=== PATIENT | male | born 1960 | race African-American/Black ===

== ENCOUNTER 2024-09-14 14:01 | Inpatient (IN) | payer OTHER ==
--- OUTSIDE RECORDS SUMMARY | 2024-09-14 14:16 | XMS REPORT | Continuity of Care Document ---
Author Name Unknown Address [address] [facility] [place] [address] [facility] Address [address] [facility] [address] [place] [address] Care Team Providers Care Sports Equipment Supervisor Name Role Phone Liang Jerez Primary Care Physician Medications Ordered Medication Name Filled Medication Name Start Date Stop Date Current Medication? Ordering Clinician Indication Dosage Frequency Signature (SIG) Comments Components Source Vitamin D3 25 mcg (1,000 unit) tablet 07-27 00:00: 00 Yes 1(1,000 unit) Fredi Martel clobetasol 0.05 % topical cream 07-24 00:00: 00 Yes 1% Fredi Martel metformin 1,000 mg tablet -24 00:00: 00 Yes 1mg Fredi Martel glipizide 10 mg tablet -24 00:00: 00 Yes 1mg Fredi Martel pravastatin 10 mg tablet 3-24 00:00: 00 Yes 1mg Fredi Martel Jardiance 10 mg tablet 3-24 00:00: 00 Yes 1mg Fredi Martel metformin 1,000 mg tablet 1-08 00:00: 00 Yes 1mg Fredi Martel clobetasol 0.05 % topical cream 2023-05 2-20 00:00: 00 Yes 1% Fredi Martel losartan 50 mg tablet 2023-05 2-20 00:00: 00 Yes 1mg Fredi Martel metformin 1,000 mg tablet 2023-05 2-20 00:00: 00 Yes 1mg Fredi Martel glipizide 10 mg tablet 2023-05 2-20 00:00: 00 Yes 1mg Fredi Martel pravastatin 10 mg tablet 2023-05 2-20 00:00: 00 Yes 1mg Fredi Martel Jardiance 10 mg tablet 2023-05 2-20 00:00: 00 Yes 1mg Fredi Martel pravastatin 10 mg tablet 2023-05 0-14 00:00: 00 Yes 1mg Fredi Martel Jardiance 10 mg tablet 2023-05 0-14 00:00: 00 Yes 1mg Fredi Martel montelukast 10 mg tablet 9-17 00:00: 00 Yes 1mg Fredi Martel losartan 50 mg tablet 8- 00:00: 00 Yes 1mg Fredi Martel methotrexat e sodium 2.5 mg tablet 8- 00:00: 00 Yes 8mg Fredi Martel clobetasol 0.05 % topical cream - 00:00: 00 Yes 1% Fredi Martel montelukast 10 mg tablet 4- 00:00: 00 Yes 1mg Fredi Martel losartan 100 mg tablet - 00:00: 00 Yes 1mg Fredi Martel metformin 1,000 mg tablet - 00:00: 00 Yes 1mg Fredi Martel glipizide 10 mg tablet - 00:00: 00 Yes 1mg Fredi Martel methotrexat e sodium 2.5 mg tablet - 00:00: 00 Yes 8mg Fredi Martel Flonase Allergy Relief 50 mcg/actuati on nasal spray,suspe nsion - 00:00: 00 Yes 1mcg/ac tuation Fredi Martel Lyrica 150 mg capsule - 00:00: 00 Yes 1mg Fredi Martel PREGABALIN 150 MG 4- 00:00: 00 Yes Fredi Martel FLUTICASONE PROPIONATE 50 MCG/ACT SUSP - 00:00: 00 Yes Fredi Martel CLOBETASOL PROPIONATE 0.05 % CREA 4-03 00:00: 00 Yes Fredi Martel METHOTREXAT E SODIUM 2.5 MG TABS 4- 00:00: 00 Yes Fredi Martel losartan 50 mg tablet - 00:00: 00 Yes 1mg Fredi F Delonte TAKE 1 TABLET BY MOUTH DAILY - 00:00: 00 09-12 00:00 :00 No 50 Fredi F Delonte TAKE 1 TABLET BY MOUTH TWICE DAILY. - 00:00: 00 09-12 00:00 :00 No 1000 Fredi F Delonte TAKE 1 TABLET BY MOUTH TWICE A DAY 07-01 00:00: 00 09-12 00:00 :00 No 10 Fredi F Delonte TAKE 1 TABLET BY MOUTH DAILY 07-01 00:00: 00 09-12 00:00 :00 No 10 Fredi F Delonte TAKE 1 CAPSULE AT BEDTIME. 2022-05 00:00: 00 09-12 00:00 :00 No 300 Fredi F Delonte TAKE 1 TABLET TWICE DAILY. 2022-05 00:00: 00 09-12 00:00 :00 No 1000 Fredi F Delonte APPLY SPARINGLY TO AFFECTED AREA(S) TWICE DAILY 2022-05 00:00: 00 09-12 00:00 :00 No 5 Fredi F Delonte TAKE 1 TABLET BY MOUTH TWICE A DAY 2022-05 00:00: 00 09-12 00:00 :00 No 10 Freid F Delonte TAKE 8 TABLETS BY MOUTH WEEKLY 2022-05 00:00: 00 09-12 00:00 :00 No 25 Fredi F Delnote TAKE 1 TABLET DAILY. 2022-05 00:00: 00 09-12 00:00 :00 No 10 Fredi F Delonte TAKE 1 TABLET DAILY. 2022-05 00:00: 00 09-12 00:00 :00 No 50 Fredi F Delonte TAKE 1 TABLET DAILY. 12-22 00:00: 00 09-12 00:00 :00 No 50 Fredi F Delonte TAKE 1 CAPSULE AT BEDTIME. 12-22 00:00: 00 09-12 00:00 :00 No 300 Fredi F Delonte TAKE 1 TABLET BY MOUTH TWICE A DAY 12-22 00:00: 00 09-12 00:00 :00 No 10 Fredi F Delonte TAKE 8 TABLETS PER WEEK. 12-22 00:00: 00 09-12 00:00 :00 No 25 Fredi F Delonte TAKE 1 TABLET DAILY. 12-22 00:00: 00 09-12 00:00 :00 No 10 Fredi F Delonte APPLY SPARINGLY TO AFFECTED AREA(S) TWICE DAILY 12-22 00:00: 00 09-12 00:00 :00 No 5 Fredi F Delonte TAKE 1 TABLET TWICE DAILY. 12-22 00:00: 00 09-12 00:00 :00 No 1000 Fredi F Delonte APPLY SPARINGLY TO AFFECTED AREA(S) TWICE DAILY 09-19 00:00: 00 09-12 00:00 :00 No 5 Fredi F Delonte TAKE 1 CAPSULE AT BEDTIME. 09-19 00:00: 00 09-12 00:00 :00 No 300 Fredi F Delonte TAKE 1 TABLET DAILY. 09-19 00:00: 00 09-12 00:00 :00 No 10 Fredi F Delonte TAKE 1 TABLET BY MOUTH TWICE A DAY 09-15 00:00: 00 09-12 00:00 :00 No 10 Fredi F Delonte TAKE 1 TABLET TWICE DAILY. 09-15 00:00: 00 09-12 00:00 :00 No 1000 Fredi F Delonte TAKE 1 CAPSULE AT BEDTIME. 09-15 00:00: 00 09-12 00:00 :00 No 300 Fredi F Delonte TAKE 8 TABLETS PER WEEK. 09-15 00:00: 00 09-12 00:00 :00 No 25 Fredi F Delonte TAKE 1 TABLET DAILY. 09-15 00:00: 00 09-12 00:00 :00 No 50 Fredi F Delonte USE 1 SPRAY IN EACH NOSTRIL TWICE DAILY. 2-07 00:00: 00 09-12 00:00 :00 No 50 Fredi F Delonte TAKE 1 TABLET BY MOUTH TWICE A DAY 2 00:00: 00 09-12 00:00 :00 No 10 Fredisherrie Martel TAKE 1 TABLET DAILY. 2 00:00: 00 09-12 00:00 :00 No 50 Fredisherrie Martel TAKE 8 TABLETS PER WEEK. 2 00:00: 00 09-12 00:00 :00 No 25 Fredi Tiffany Martel APPLY SPARINGLY TO AFFECTED AREA(S) TWICE DAILY 2 00:00: 00 09-12 00:00 :00 No 5 Fredisherrie Martel TAKE 1 CAPSULE AT BEDTIME. 06-09 00:00: 00 09-12 00:00 :00 No 300 Fredisherrie Martel TAKE 1 TABLET DAILY. 06-09 00:00: 00 09-12 00:00 :00 No 10 Fredi Martel TAKE 1 TABLET TWICE DAILY. 06-09 00:00: 00 09-12 00:00 :00 No 1000 Fredi Martel TAKE 1 TABLET DAILY. 05-20 00:00: 00 09-12 00:00 :00 No Fredi Tiffany Martel APPLY SPARINGLY TO AFFECTED AREA(S) TWICE DAILY 2021-0515 00:00: 00 09-12 00:00 :00 No unit Fredi Tiffany Martel Dose Unknown 2021-05 00:00: 00 Yes Fredi Martel TAKE 1 CAPSULE AT BEDTIME. 2021-05 00:00: 00 09-12 00:00 :00 No 300 Fredi Martel Dose Unknown 11-06 00:00: 00 Yes Fredi Tiffany Delonte tadalafil 5 mg tablet - 00:00: 00 No 1mg montelukast 10 mg tablet - 00:00: 00 Yes 1mg Fredi Tiffany Martel metformin 1,000 mg tablet 11-05 00:00: 00 Yes 1mg Fredi Tiffany Delonte glipizide 10 mg tablet - 00:00: 00 Yes 1mg Fredi Tiffany Delonte gabapentin 300 mg capsule 2022-0 7-06 00:00: 00 Yes 1mg Fredi Martel Dose Unknown 2021-0 7-06 00:00: 00 Yes Fredi Martel clobetasol 0.05 % topical cream 2021-0 7-06 00:00: 00 No 1% montelukast 10 mg tablet 2021-0 7-06 00:00: 00 No 1mg metformin 1,000 mg tablet 2021-0 7-06 00:00: 00 No 1mg glipizide 10 mg tablet 2021-0 7-06 00:00: 00 No 1mg gabapentin 300 mg capsule 2021-0 -06 00:00: 00 No 1mg clobetasol 0.05 % topical cream 2021-0 5-23 00:00: 00 Yes 1% Fredi Martel clobetasol 0.05 % topical cream 2021-0 5-23 00:00: 00 No 1% metformin 1,000 mg tablet 2021-0 4-18 00:00: 00 Yes 1mg Fredi Martel Dose Unknown 2021-0 4-18 00:00: 00 Yes Fredi Martel metformin 1,000 mg tablet 2021-0 4-18 00:00: 00 No 1mg glipizide 10 mg tablet 2-0 4-18 00:00: 00 No 1mg Dose Unknown 2-0 4-15 00:00: 00 Yes Fredi Martel Dose Unknown 2-0 4-15 00:00: 00 Yes Fredi Martel Dose Unknown 2-0 4-15 00:00: 00 No Dose Unknown 2-0 4-15 00:00: 00 No Dose Unknown 2-0 4-13 00:00: 00 Yes Fredi Martel Dose Unknown 2-0 4-13 00:00: 00 Yes Fredi Martel Dose Unknown 2-0 4-13 00:00: 00 No Dose Unknown 2-0 4-13 00:00: 00 No montelukast 10 mg tablet 2-0 4-12 00:00: 00 Yes 1mg Fredi Martel Dose Unknown 2022-0 4-12 00:00: 00 Yes Fredi Martel Dose Unknown 2-0 4-12 00:00: 00 Yes Fredi Martel Dose Unknown 2-0 4-12 00:00: 00 Yes Fredi Martel montelukast 10 mg tablet 08-12 00:00: 00 No 1mg glipizide 10 mg tablet 08-12 00:00: 00 No 1mg metformin 1,000 mg tablet 08-12 00:00: 00 No 1mg Flonase Allergy Relief 50 mcg/actuati on nasal spray,suspe nsion 08-12 00:00: 00 No 1mcg/ac tuation clobetasol 0.05 % topical cream 07-29 00:00: 00 No 1% prednisone 20 mg tablet 07-29 00:00: 00 No 1mg methotrexat e sodium 2.5 mg tablet 07-29 00:00: 00 No 8mg Dose Unknown 07-29 00:00: 00 No Dose Unknown 07-29 00:00: 00 Yes Fredi Tiffany Martel Dose Unknown 07-29 00:00: 00 Yes Fredi Martel Dose Unknown 07-29 00:00: 00 Yes Fredi Tiffany Delonte betamethaso ne valerate 0.1 % topical cream 07-01 00:00: 00 No 1% Dose Unknown 07-01 00:00: 00 Yes Fredi Tiffany Delonte ketoconazol e 2 % topical cream 2020-05 00:00: 00 No 1% folic acid 1 mg tablet 2020-05 00:00: 00 No 1mg metformin 1,000 mg tablet 2020-05 00:00: 00 No 1mg glipizide 10 mg tablet 2020-05 00:00: 00 No 1mg ciprofloxac in 500 mg tablet 2020-05 00:00: 00 No 1mg methotrexat e sodium 2.5 mg tablet 2020-05 00:00: 00 No 6mg gabapentin 100 mg capsule 2020-05 00:00: 00 No 1mg gabapentin 300 mg capsule 2020-05 00:00: 00 No 1mg Dose Unknown 2020-05 00:00: 00 Yes Fredi Tiffany Delonte glipizide 10 mg tablet 2020-05 00:00: 00 Yes 1mg Fredi F Delonte Dose Unknown 2020-05 00:00: 00 Yes Fredi Martel Dose Unknown 2020-05 00:00: 00 Yes Fredi Martel Dose Unknown 2020-05 00:00: 00 Yes Fredi Martel Dose Unknown 2020-05 00:00: 00 Yes Fredi Martel Dose Unknown 2020-05 00:00: 00 Yes Fredi Martel Dose Unknown 09-10 00:00: 00 No Dose Unknown 09-10 00:00: 00 Yes Fredi Martel betamethaso ne valerate 0.1 % topical cream 08-20 00:00: 00 No 1% Dose Unknown 08-20 00:00: 00 Yes Fredi Martel betamethaso ne valerate 0.1 % topical cream 07-30 00:00: 00 No 1% betamethaso ne valerate 0.1 % topical cream 07-30 00:00: 00 Yes 1% Fredi Martel betamethaso ne valerate 0.1 % topical cream 05-14 00:00: 00 No 1% folic acid 1 mg tablet - 00:00: 00 No 1mg glipizide 10 mg tablet - 00:00: 00 No 1mg metformin 1,000 mg tablet - 00:00: 00 No 1mg methotrexat e sodium 2.5 mg tablet - 00:00: 00 No 6mg gabapentin 100 mg capsule - 00:00: 00 No 1mg betamethaso ne valerate 0.1 % topical cream 05-14 00:00: 00 Yes 1% Fredi Martel folic acid 1 mg tablet - 00:00: 00 Yes 1mg Fredi Martel glipizide 10 mg tablet - 00:00: 00 Yes 1mg Fredi Martel metformin 1,000 mg tablet - 00:00: 00 Yes 1mg Fredi Martel methotrexat e sodium 2.5 mg tablet 05-14 00:00: 00 Yes 6mg Fredi Martel gabapentin 100 mg capsule 05-14 00:00: 00 Yes 1mg Fredi Martel metformin 1,000 mg tablet 2019-05 00:00: 00 No 1mg glipizide 10 mg tablet 2019-05 00:00: 00 No 1mg gabapentin 100 mg capsule 2019-05 00:00: 00 No 1mg metformin 1,000 mg tablet 2019-05 00:00: 00 Yes 1mg Fredi Martel glipizide 10 mg tablet 2019-05 00:00: 00 Yes 1mg Fredi Martel gabapentin 100 mg capsule 2019-05 00:00: 00 Yes 1mg Fredi Martel betamethaso ne valerate 0.1 % topical cream 2019-05 00:00: 00 No 1% folic acid 1 mg tablet 2019-05 00:00: 00 No 1mg prednisone 20 mg tablet 2019-05 00:00: 00 No 1mg ciprofloxac in 500 mg tablet 2019-05 00:00: 00 No 1mg amoxicillin 875 mg-potassiu m clavulanate 125 mg tablet 2019-05 00:00: 00 No 1mg betamethaso ne valerate 0.1 % topical cream 2019-05 00:00: 00 Yes 1% Fredi Martel folic acid 1 mg tablet 2019-05 00:00: 00 Yes 1mg Fredi Martel prednisone 20 mg tablet 2019-05 00:00: 00 Yes 1mg Fredi Martel ciprofloxac in 500 mg tablet 2019-05 00:00: 00 Yes 1mg Fredi Martel amoxicillin 875 mg-potassiu m clavulanate 125 mg tablet 2019-05 00:00: 00 Yes 1mg Fredi Martel betamethaso ne valerate 0.1 % topical cream 2019-05 0 00:00: 00 No 1% folic acid 1 mg tablet 2019-05 0 00:00: 00 No 1mg ciprofloxac in 500 mg tablet 2019-05 0 00:00: 00 No 1mg sulfamethox azole 800 mg-trimetho prim 160 mg tablet 2019-05 00:00: 00 No 1mg methotrexat e sodium 2.5 mg tablet 2019-05 00:00: 00 No 6mg prednisone 20 mg tablet 2019-05 00:00: 00 No mg betamethaso ne valerate 0.1 % topical cream 2019-05 00:00: 00 Yes 1% Fredi Martel folic acid 1 mg tablet 2019-05 00:00: 00 Yes 1mg Fredi Martel ciprofloxac in 500 mg tablet 2019-05 00:00: 00 Yes 1mg Fredi Martel sulfamethox azole 800 mg-trimetho prim 160 mg tablet 2019-05 00:00: 00 Yes 1mg Fredi Martel methotrexat e sodium 2.5 mg tablet 2019-05 00:00: 00 Yes 6mg Fredi Martel prednisone 20 mg tablet 2019-05 00:00: 00 Yes mg Fredi Martel prednisone 20 mg tablet 2019-05 00:00: 00 No 1mg sulfamethox azole 800 mg-trimetho prim 160 mg tablet 2019-05 00:00: 00 No 1mg prednisone 20 mg tablet 2019-05 00:00: 00 Yes 1mg Fredi Martel sulfamethox azole 800 mg-trimetho prim 160 mg tablet 2019-05 00:00: 00 Yes 1mg Fredi Martel betamethaso ne valerate 0.1 % topical cream 2019-05 00:00: 00 No 1% clotrimazol e 1 % topical cream 2019-05 00:00: 00 No 1% metformin 1,000 mg tablet 2019-05 00:00: 00 No 1mg glipizide 10 mg tablet 2019-05 00:00: 00 No 1mg gabapentin 100 mg capsule 2019-05 00:00: 00 No 1mg betamethaso ne valerate 0.1 % topical cream 2019-05 00:00: 00 Yes 1% Fredi Martel clotrimazol e 1 % topical cream 2019-05 00:00: 00 Yes 1% Fredi Martel metformin 1,000 mg tablet 2019-05 00:00: 00 Yes 1mg Fredi Martel glipizide 10 mg tablet 2019-05 00:00: 00 Yes 1mg Fredi Martel gabapentin 100 mg capsule 2019-05 00:00: 00 Yes 1mg Fredi Martel glipizide 10 mg tablet 12-11 00:00: 00 No 1mg metformin 1,000 mg tablet 12-11 00:00: 00 No 1mg gabapentin 100 mg capsule 12-11 00:00: 00 No 1mg glipizide 10 mg tablet 12-11 00:00: 00 Yes 1mg Fredi Martel metformin 1,000 mg tablet 12-11 00:00: 00 Yes 1mg Fredi Martel gabapentin 100 mg capsule 12-11 00:00: 00 Yes 1mg Fredi Martel triamcinolo ne acetonide 0.1 % topical cream 11-28 00:00: 00 No 1% nystatin 100,000 unit/gram topical cream 11-28 00:00: 00 No 1unit/g pam glipizide ER 2.5 mg tablet, extended release 24 hr 11-28 00:00: 00 No 1mg metformin 500 mg tablet 11-28 00:00: 00 No 1mg ciprofloxac in 500 mg tablet 11-28 00:00: 00 No 1mg glipizide 10 mg tablet 11-28 00:00: 00 No 1mg metformin 1,000 mg tablet 11-28 00:00: 00 No 1mg triamcinolo ne acetonide 0.1 % topical cream 11-28 00:00: 00 Yes 1% Fredi Martel nystatin 100,000 unit/gram topical cream 11-28 00:00: 00 Yes 1unit/g pam Martel glipizide ER 2.5 mg tablet, extended release 24 hr 11-28 00:00: 00 Yes 1mg Fredi Martel metformin 500 mg tablet 11-28 00:00: 00 Yes 1mg Fredi Martel ciprofloxac in 500 mg tablet 11-28 00:00: 00 Yes 1mg Fredi Martel glipizide 10 mg tablet 11-28 00:00: 00 Yes 1mg Fredi Martel metformin 1,000 mg tablet 11-28 00:00: 00 Yes 1mg Fredi Martel Immunizations Ordered Immunization Name Filled Immunization Name Date Status Comments Source Moderna COVID-19 Vaccine 2021-09-22 00:00:00 Completed Moderna COVID-19 Vaccine Moderna COVID-19 Vaccine 2021-09-22 00:00:00 Completed Fredi Martel Moderna COVID-19 Vaccine Moderna COVID-19 Vaccine 2021-09-22 00:00:00 Completed Fredi Martel Vital Signs Vital Name Observation Time Observation Value Comments S barbarasera BP Systolic 2024-07-24 09:50:00 150 mm[Hg] Step hen Tiffany Martel BP Diastolic 2024-07-24 09:50:00 88 mm[Hg] Juan phen Tiffany Martel Weight Measured 2024-07-24 09:50:00 177.60 pounds Fredi Martel Height Measured 2024-07-24 09:50:00 67.00 inches Fredi Martel Body Temperature 2024-07-24 09:50:00 97.70 degrees Fredi Martel Heart Rate 2024-07-24 09:50:00 58.00 /min Regla en Tiffany Martel Respiratory Rate 2024-07-24 09:50:00 18.00 /min Fredi Martel BP Systolic 2024-06-28 09:33:00 133 mm[Hg] Step hen Tifafny Martel BP Diastolic 2024-06-28 09:33:00 86 mm[Hg] Ujan phen Tiffany Martel Weight Measured 2024-06-28 09:33:00 174.20 pounds Fredi Martel Height Measured 2024-06-28 09:33:00 67.00 inches Fredi Martel Body Temperature 2024-06-28 09:33:00 98.40 degrees Fredi Martel Heart Rate 2024-06-28 09:33:00 71.00 /min Regla en F Delonte Respiratory Rate 2024-06-28 09:33:00 Fredi Tiffany Martel BP Systolic 2024-05-10 10:20:00 153 mm[Hg] Step hen F Delonte BP Diastolic 2024-05-10 10:20:00 89 mm[Hg] Juan phen F Delonte Weight Measured 2024-05-10 10:20:00 175.80 pounds Fredi F Delonte Height Measured 2024-05-10 10:20:00 67.00 inches Fredi F Delonte Body Temperature 2024-05-10 10:20:00 98.10 degrees Fredi F Delonte Heart Rate 2024-05-10 10:20:00 72.00 /min Regla en F Delonte Respiratory Rate 2024-05-10 10:20:00 18.00 /min Fredi F Delonte BP Systolic 2024-04-21 11:40:00 159 mm[Hg] Step hen F Delonte BP Diastolic 2024-04-21 11:40:00 100 mm[Hg] Juan phen F Delonte Weight Measured 2024-04-21 11:40:00 176.00 pounds Fredi F Delonte Height Measured 2024-04-21 11:40:00 67.00 inches Fredi F Delonte Body Temperature 2024-04-21 11:40:00 98.40 degrees Fredi F Delonte Heart Rate 2024-04-21 11:40:00 84.00 /min Regla en F Delonte Respiratory Rate 2024-04-21 11:40:00 Fredi F Delonte BP Systolic 2024-02-14 17:00:00 152 mm[Hg] Step hen F Delonte BP Diastolic 2024-02-14 17:00:00 88 mm[Hg] Juan phen F Delonte Weight Measured 2024-02-14 17:00:00 170.00 pounds Fredi F Delonte Height Measured 2024-02-14 17:00:00 67.00 inches Fredi F Delonte Body Temperature 2024-02-14 17:00:00 97.90 degrees Fredi F Delonte Heart Rate 2024-02-14 17:00:00 68.00 /min Regla en F Delonte Respiratory Rate 2024-02-14 17:00:00 18.00 /min Fredi F Delonte BP Systolic 2024-02-02 10:34:00 127 mm[Hg] Step hen F Delonte BP Diastolic 2024-02-02 10:34:00 82 mm[Hg] Juan phen F Delonte Weight Measured 2024-02-02 10:34:00 171.20 pounds Fredi F Delonte Height Measured 2024-02-02 10:34:00 67.00 inches Fredi F Delonte Body Temperature 2024-02-02 10:34:00 98.00 degrees Fredi F Delonte Heart Rate 2024-02-02 10:34:00 84.00 /min Regla en F Delonte Respiratory Rate 2024-02-02 10:34:00 18.00 /min Fredi F Delonte BP Systolic 2023-12-02 10:30:00 105 mm[Hg] Step hen F Delonte BP Diastolic 2023-12-02 10:30:00 73 mm[Hg] Juan phen F Delonte Weight Measured 2023-12-02 10:30:00 166.80 pounds Fredi F Delonte Height Measured 2023-12-02 10:30:00 67.00 inches Fredi F Delonte Body Temperature 2023-12-02 10:30:00 97.40 degrees Fredi F Delonte Heart Rate 2023-12-02 10:30:00 92.00 /min Regla en F Delonte Respiratory Rate 2023-12-02 10:30:00 17.00 /min Fredi F Delonte BP Systolic 2023-08-19 16:23:00 144 mm[Hg] Step hen F Delonte BP Diastolic 2023-08-19 16:23:00 91 mm[Hg] Juan phen F Delonte Weight Measured 2023-08-19 16:23:00 179.40 pounds Fredi F Delonte Height Measured 2023-08-19 16:23:00 67.00 inches Fredi F Delonte Body Temperature 2023-08-19 16:23:00 98.30 degrees Fredi F Delonte Heart Rate 2023-08-19 16:23:00 72.00 /min Regla en F Delonte Respiratory Rate 2023-08-19 16:23:00 17.00 /min Fredi F Delonte BP Systolic 2023-08-04 10:12:00 177 mm[Hg] Step hen F Delonte BP Diastolic 2023-08-04 10:12:00 94 mm[Hg] Juan phen F Delonte Weight Measured 2023-08-04 10:12:00 186.80 pounds Fredi F Delonte Height Measured 2023-08-04 10:12:00 67.00 inches Fredi F Delonte Body Temperature 2023-08-04 10:12:00 98.20 degrees Fredi F Delonte Heart Rate 2023-08-04 10:12:00 59.00 /min Regla en F Delonte Respiratory Rate 2023-08-04 10:12:00 16.00 /min Fredi F Delonte BP Systolic 2023-03-24 09:54:00 166 mm[Hg] Step hen F Delonte BP Diastolic 2023-03-24 09:54:00 94 mm[Hg] Juan phen F Delonte Weight Measured 2023-03-24 09:54:00 197.20 pounds Fredi F Delonte Height Measured 2023-03-24 09:54:00 67.00 inches Fredi F Delonte Body Temperature 2023-03-24 09:54:00 98.20 degrees Fredi F Delonte Heart Rate 2023-03-24 09:54:00 57.00 /min Regla en F Delonte Respiratory Rate 2023-03-24 09:54:00 19.00 /min Fredi F Delonte BP Systolic 2022-12-22 10:07:00 176 mm[Hg] Step hen F Delonte BP Diastolic 2022-12-22 10:07:00 96 mm[Hg] Juan phen F Delonte Weight Measured 2022-12-22 10:07:00 192.60 pounds Fredi F Delonte Height Measured 2022-12-22 10:07:00 67.00 inches Fredi F Delonte Body Temperature 2022-12-22 10:07:00 98.10 degrees Fredi F Delonte Heart Rate 2022-12-22 10:07:00 60.00 /min Regla en F Delonte Respiratory Rate 2022-12-22 10:07:00 17.00 /min Fredi F Delonte BP Systolic 2022-09-19 09:47:00 144 mm[Hg] Step hen F Delonte BP Diastolic 2022-09-19 09:47:00 89 mm[Hg] Juan phen F Delonte Weight Measured 2022-09-19 09:47:00 197.40 pounds Fredi F Delonte Height Measured 2022-09-19 09:47:00 67.00 inches Fredi F Delonte Body Temperature 2022-09-19 09:47:00 98.30 degrees Fredi F Delonte Heart Rate 2022-09-19 09:47:00 64.00 /min Regla en F Delonte Respiratory Rate 2022-09-19 09:47:00 Fredi F Delonte BP Systolic 2022-09-15 09:20:00 159 mm[Hg] Step hen F Delonte BP Diastolic 2022-09-15 09:20:00 95 mm[Hg] Juan phen F Delonte Weight Measured 2022-09-15 09:20:00 195.80 pounds Fredi F Delonte Height Measured 2022-09-15 09:20:00 67.00 inches Fredi F Delonte Body Temperature 2022-09-15 09:20:00 98.10 degrees Fredi F Delonte Heart Rate 2022-09-15 09:20:00 62.00 /min Regla en F Delonte Respiratory Rate 2022-09-15 09:20:00 Fredi F Delonte BP Systolic 2022-06-09 09:43:00 160 mm[Hg] Step hen F Delonte BP Diastolic 2022-06-09 09:43:00 103 mm[Hg] Juan phen F Delonte Weight Measured 2022-06-09 09:43:00 200.40 pounds Fredi F Delonte Height Measured 2022-06-09 09:43:00 67.00 inches Frdei F Delonte Body Temperature 2022-06-09 09:43:00 98.30 degrees Fredi F Delonte Heart Rate 2022-06-09 09:43:00 61.00 /min Regla en F Delonte Respiratory Rate 2022-06-09 09:43:00 17.00 /min Fredi F Delonte BP Systolic 2022-03-03 09:10:00 153 mm[Hg] Step hen F Delonte BP Diastolic 2022-03-03 09:10:00 103 mm[Hg] Juan phen F Delonte Weight Measured 2022-03-03 09:10:00 199.00 pounds Fredi F Delonte Height Measured 2022-03-03 09:10:00 67.00 inches Fredi F Delonte Body Temperature 2022-03-03 09:10:00 98.10 degrees Fredi F Delonte Heart Rate 2022-03-03 09:10:00 78.00 /min Regla en F Delonte Respiratory Rate 2022-03-03 09:10:00 18.00 /min Fredi F Delonte BP Systolic 2021-11-05 10:08:00 146 mm[Hg] Step hen F Delonte BP Diastolic 2021-11-05 10:08:00 96 mm[Hg] Juan phen F Delonte Weight Measured 2021-11-05 10:08:00 196.60 pounds Fredi Martel Height Measured 2021-11-05 10:08:00 67.00 inches Fredi Tiffany Martel Body Temperature 2021-11-05 10:08:00 98.40 degrees Fredi Tiffany Martel Heart Rate 2021-11-05 10:08:00 72.00 /min Regla en F Delonte Respiratory Rate 2021-11-05 10:08:00 17.00 /min Fredi Tiffany Martel BP Systolic 2021-08-12 14:24:00 143 mm[Hg] Step hen F Delonte BP Diastolic 2021-08-12 14:24:00 87 mm[Hg] Juan phen Tiffany Martel Weight Measured 2021-08-12 14:24:00 192.60 pounds Fredi Martel Height Measured 2021-08-12 14:24:00 67.00 inches Fredi Martel Body Temperature 2021-08-12 14:24:00 98.10 degrees Fredi Martel Heart Rate 2021-08-12 14:24:00 88.00 /min Regla en Tiffany Martel Respiratory Rate 2021-08-12 14:24:00 16.00 /min Fredi Martel BP Systolic 2021-07-29 09:41:00 158 mm[Hg] BP Diastolic 2021-07-29 09:41:00 94 mm[Hg] Weight Measured 2021-07-29 09:41:00 194.00 pounds Height Measured 2021-07-29 09:41:00 67.00 inches Body Temperature 2021-07-29 09:41:00 98.40 degrees Heart Rate 2021-07-29 09:41:00 66.00 /min Respiratory Rate 2021-07-29 09:41:00 20.00 /min BP Systolic 2021-04-30 09:50:00 147 mm[Hg] BP Diastolic 2021-04-30 09:50:00 89 mm[Hg] Weight Measured 2021-04-30 09:50:00 191.60 pounds Height Measured 2021-04-30 09:50:00 67.00 inches Body Temperature 2021-04-30 09:50:00 98.30 degrees Heart Rate 2021-04-30 09:50:00 82.00 /min Respiratory Rate 2021-04-30 09:50:00 21.00 /min BP Systolic 2020-05-14 14:26:00 137 mm[Hg] BP Diastolic 2020-05-14 14:26:00 83 mm[Hg] Weight Measured 2020-05-14 14:26:00 193.20 pounds Height Measured 2020-05-14 14:26:00 67.00 inches Body Temperature 2020-05-14 14:26:00 98.60 degrees Heart Rate 2020-05-14 14:26:00 84.00 /min Respiratory Rate 2020-05-14 14:26:00 16.00 /min BP Systolic 2020-04-02 13:12:00 139 mm[Hg] BP Diastolic 2020-04-02 13:12:00 86 mm[Hg] Weight Measured 2020-04-02 13:12:00 187.40 pounds Height Measured 2020-04-02 13:12:00 67.00 inches Body Temperature 2020-04-02 13:12:00 98.00 degrees Heart Rate 2020-04-02 13:12:00 68.00 /min Respiratory Rate 2020-04-02 13:12:00 16.00 /min BP Systolic 2020-02-27 14:14:00 146 mm[Hg] BP Diastolic 2020-02-27 14:14:00 93 mm[Hg] Weight Measured 2020-02-27 14:14:00 190.20 pounds Height Measured 2020-02-27 14:14:00 67.00 inches Body Temperature 2020-02-27 14:14:00 98.90 degrees Heart Rate 2020-02-27 14:14:00 67.00 /min Respiratory Rate 2020-02-27 14:14:00 17.00 /min BP Systolic 2020-02-13 17:01:00 144 mm[Hg] BP Diastolic 2020-02-13 17:01:00 93 mm[Hg] Weight Measured 2020-02-13 17:01:00 191.60 pounds Height Measured 2020-02-13 17:01:00 67.00 inches Body Temperature 2020-02-13 17:01:00 98.80 degrees Heart Rate 2020-02-13 17:01:00 62.00 /min Respiratory Rate 2020-02-13 17:01:00 16.00 /min BP Systolic 2019-12-12 13:26:00 124 mm[Hg] BP Diastolic 2019-12-12 13:26:00 86 mm[Hg] Weight Measured 2019-12-12 13:26:00 184.20 pounds Height Measured 2019-12-12 13:26:00 67.00 inches Body Temperature 2019-12-12 13:26:00 98.60 degrees Heart Rate 2019-12-12 13:26:00 80.00 /min Respiratory Rate 2019-12-12 13:26:00 BP Systolic 2019-11-29 13:48:00 117 mm[Hg] BP Diastolic 2019-11-29 13:48:00 80 mm[Hg] Weight Measured 2019-11-29 13:48:00 185.10 pounds Height Measured 2019-11-29 13:48:00 67.00 inches Body Temperature 2019-11-29 13:48:00 98.70 degrees Heart Rate 2019-11-29 13:48:00 73.00 /min Respiratory Rate 2019-11-29 13:48:00 18.00 /min Procedures Procedure Date / Time Performed Performing [facility] [address] Ultrasound, Abdominal, Real Time With Image Documentation; Complete 2024-02-24 00:00:00 Fredi Martel [id number] Bx Skin Subcutaneous /mucous Membrane 1 Lesion 2020-02-27 00:00:00 Fredi Martel Plan of Care Planned Activity Planned Date Details Comments Source Goal Plan of Care Note [code = 60746-6] Goal Plan of Care Note [code = 19206-7] Goal Plan of Care Note [code = 31414-2] Goal Plan of Care Note [code = 97224-3] Goal Plan of Care Note [code = 14382-6] Goal Plan of Care Note [code = 11148-7] Goal Plan of Care Note [code = 17973-9] Goal Plan of Care Note [code = 35400-2] Goal Plan of Care Note [code = 53594-2] Goal Plan of Care Note [code = 71657-3] Goal Plan of Care Note [code = 56332-7] Goal Plan of Care Note [code = 35368-0] Goal Plan of Care Note [code = 49428-0] Goal Plan of Care Note [code = 61727-6] Goal Plan of Care Note [code = 40448-0] Goal Plan of Care Note [code = 03770-0] Goal Plan of Care Note [code = 75864-4] Goal Plan of Care Note [code = 85032-8] Goal Plan of Care Note [code = 20791-7] Encounters Start Date/Time End Date/Time Encounter Type Admission Type Attending [facility] Care Department Encounter ID Source 2024-07-24 09:39:08 2024-07-24 09:39:08 Outpatient [facility] [id number] Fredi Martel 2024-07-24 00:00:00 2024-07-24 00:00:00 Outpatient Visit SFA [id number] Fredi Martel 2024-06-28 00:00:00 2024-06-28 00:00:00 Outpatient Visit SFA [id number] Fredi Martel 2024-05-10 10:12:40 2024-05-10 10:12:40 Outpatient [facility] [id number] Fredi Martel 2024-05-10 00:00:00 2024-05-10 00:00:00 Outpatient Visit SFA [id number] Fredi Martel 2024-05-10 00:00:00 2024-05-10 00:00:00 Outpatient Visit SFA [id number] Fredi Martel 2024-04-21 11:31:26 2024-04-21 11:31:26 Outpatient [facility] [id number] Fredi Martel 2024-04-21 00:00:00 2024-04-21 00:00:00 Outpatient Visit SFA [id number] Fredi Martel 2024-02-24 11:33:03 2024-02-24 11:33:03 Outpatient [facility] [id number] Fredi Martel 2024-02-14 16:59:53 2024-02-14 16:59:53 Outpatient [facility] [id number] Fredi Martel 2024-02-14 00:00:00 2024-02-14 00:00:00 Outpatient Visit SFA [id number] Fredi Martel 2024-02-02 10:26:32 2024-02-02 10:26:32 Outpatient [facility] [id number] Fredi Martel 2024-02-02 00:00:00 2024-02-02 00:00:00 Outpatient Visit SFA [id number] Fredi Martel 2023-12-07 15:28:23 2023-12-07 15:28:23 Outpatient [facility] [id number] Fredi Martel 2023-12-02 10:20:27 2023-12-02 10:20:27 Outpatient [facility] [id number] Fredi Martel 2023-12-02 00:00:00 2023-12-02 00:00:00 Outpatient Visit SFA [id number] Fredi Martel 2023-08-19 16:10:53 2023-08-19 16:10:53 Outpatient S[facility] [id number] Fredi Martel 2023-08-19 00:00:00 2023-08-19 00:00:00 Outpatient Visit SFA [id number] Fredi Martel 2023-08-04 10:11:19 2023-08-04 10:11:19 Outpatient [facility] [id number] Fredi Martel 2023-03-24 09:46:42 2023-03-24 09:46:42 Outpatient S[facility] [id number] Fredi Martel 2022-12-22 09:56:42 2022-12-22 09:56:42 Outpatient [facility] [id number] Fredi Martel 2022-09-19 09:34:31 2022-09-19 09:34:31 Outpatient [facility] [id number] Fredi Martel 2022-09-15 09:07:42 2022-09-15 09:07:42 Outpatient [facility] [id number] Fredi Martel 2022-06-09 09:28:13 2022-06-09 09:28:13 Outpatient [facility] [id number] Fredi Martel 2022-03-03 09:01:49 2022-03-03 09:01:49 Outpatient [facility] [id number] Fredi Martel 2021-11-05 00:00:00 2021-11-05 00:00:00 Outpatient Visit [id number] Results Test Description Test Time Test Comments Results Result Co mments Source Fredi MartelLIPID [id number] 00:00:00* Test Item Value Reference Range Interpretation Comme nts CHOLESTEROL, TOTAL (test cod e = 2093-3) 167 mg/dL HDL CHOLESTEROL (test code = 2085-9) 54 mg/dL TRIGLYCERIDES (test code = 2571-8) 109 mg/dL LDL-CHOLESTEROL (test code = 07024-4) 92 mg/dL(calc) CHOL/HDLC RATIO (test code = 9830-1) 3.1 (calc) NON HDL CHOLESTEROL (test code = 65201-3) 113 mg/dL(calc) Fredi MartelHEMOGLOBIN [id number] 00:00:00* Test Item Value Reference Range Interpretation Comme nts HEMOGLOBIN A1c (test code = 4548-4) 6.7 %oftotalHgb Fredi MartelMICROALBUMIN, RANDOM URINE (W/CREATININE)2024-07-26 00:00:00* Test Item Value Reference Range Interpretation Comme nts CREATININE, RANDOM URINE (te st code = 2161-8) 87 mg/dL ALBUMIN, URINE (test code = 73343-7) 1.6 mg/dL ALBUMIN/CREATININE RATIO, RA NDOM URINE (test code = 9318-7) 18 mg/gcreat Fredi Aleln AustinVITAMIN D,25-OH,TOTAL,[id number] 00:00:00* Test Item Value Reference Range Interpretation Comme [place] VITAMIN D,25-OH,TOTAL,IA (te st code = 00327-0) 25 ng/mL Fredi MartelMITOCHONDRIA M2 ANTIBODY (IGG), [id number] 00:00:00* Test Item Value Reference Range Interpretation Comme [place] MITOCHONDRIA M2 ANTIBODY (IG G), EIA (test code = 63538-5) <20.0 U Fredi Allen AustinHEPATITIS B CORE ANTIBODY (IGM)2024-07-26 00:00:00* Test Item Value Reference Range Interpretation Comme [place] HEPATITIS B CORE ANTIBODY (I GM) (test code = 51240-6) NON-REACTIVE Fredi Allen AustinPHOSPHATE ( PHOSPHORUS)2024-07-26 00:00:00* Test Item Value Reference Range Interpretation Comme nts PHOSPHATE ( PHOSPHORUS) (t est code = 2777-1) 3.5 mg/dL Fredi Allen AustinPTH, INTACT WITHOUT [id number] 00:00:00* Test Item Value Reference Range Interpretation Comme [place] PARATHYROID HORMONE, INTACT (test code = 2731-8) 11 pg/mL Fredi MartelPTH, INTACT WITHOUT [id number] 00:00:00* Test Item Value Reference Range Interpretation Comme [place] PARATHYROID HORMONE, INTACT (test code = 2731-8) 11 pg/mL Fredi MartelHEPATITIS C [id number] 12:51:33* Test Item Value Reference Range Interpretation Comme nts HEPATITIS C GENOTYPE (test code = 35668) TEST NOT PERFORMED Test not performed due to duplicate entry.Charges adjusted as applicable. UNLESS OTHERWISE INDICATED, ALL TESTING PERFORMED AT [facility] [address] [place] [id number] [employer]: DOTTIE WOOTEN M.D. CLIA NUMBER [id number] [place]. [id number] HEPATITIS C GENOTYPE [REFLEX]2024-04-28 00:00:00* Test Item Value Reference Range Interpretation Comme nts HEPATITIS C GENOTYPE (test code = 30193) TEST NOT PERFORMED Fredi F AustinHEPATITIS C GENOTYPE [REFLEX]2024-04-28 00:00:00* Test Item Value Reference Range Interpretation Comme nts HEPATITIS C GENOTYPE (test code = 63972) TEST NOT PERFORMED Fredi F AustinHEPATITIS C GENOTYPE [REFLEX]2024-04-28 00:00:00* Test Item Value Reference Range Interpretation Comme nts HEPATITIS C GENOTYPE (test code = 28571) TEST NOT PERFORMED Fredi F AustinHEPATITIS C GENOTYPE [REFLEX]2024-04-28 00:00:00* Test Item Value Reference Range Interpretation Comme nts HEPATITIS C GENOTYPE (test code = 86951) TEST NOT PERFORMED Fredi F AustinANA (ANTI-NUCLEAR AB) WITH REFLEX [id number] 04:44:59* Test Item Value Reference Range Interpretation Comme nts ANTI-NUCLEAR ANTIBODIES (test code = 3506) POSITIVE NEGATIVE A PABLITO PATTERN (REPORTED TITER) (test code = 80818) SEE BELOW HOMOGENEOUS (test code = 20030) NEGATIVE TITER NEGATIVE SPECKLED (test code = 142406) 1:160 TITER NEGATIVE H DENSE FINE SPECKLED (test code = 54901) NEGATIVE TITER NEGATIVE CENTROMERE (test code = 769258) NEGATIVE TITER NEGATIVE COARSE SPECKLED (test code = 215385) NEGATIVE TITER NEGATIVE DISCRETE NUCLEAR DOTS (test code = 410057) NEGATIVE TITER NEGATIVE NUCLEOLAR (test code = 355597) NEGATIVE TITER NEGATIVE NUCLEAR MEMBRANE (test code = 254449) NEGATIVE TITER NEGATIVE CYTO. RETICULAR (CRISTINA) (test code = 047003) PRESENT NEGATIVE A Cytoplasmic mitochondrial fluorescent pattern seen. For appropriate patients, consider confirmation with mitochondrial M2 antibody EIA. COMMENTS (test code = 966306) NONE METHOD (test code = 90837) (NOTE) TESTING PERFORME D BY [employer] IFA PLATFORM.THE METHOD INCLUDES A SCREEN THRESHOLD OF 1:80, DIGITIZED AND COMPUTER ALGORITHM-ASSISTED INTERPRETATION OF TITERS AND DIGITAL PATTERNS, AND HEp-2 CELL LINE SUBSTRATE. ADDITIONAL UNUSUAL PATTERNS WILL BE GIVEN COMMENTS.FOR MORE INFORMATION, SEE [email or web address] PABLITO (ANTI-NUCLEAR AB) WITH REFLEX [id number] 00:00:00* Test Item Value Reference Range Interpretation Comme nts ANTI-NUCLEAR ANTIBODIES (kia t code = 3506) POSITIVE PABLITO PATTERN (REPORTED TITER) (test code = 48569) SEE BELOW HOMOGENEOUS (test code = 36952) NEGATIVE TITER SPECKLED (test code = 997664) 1:160 TITER DENSE FINE SPECKLED (test co de = 99808) NEGATIVE TITER CENTROMERE (test code = 793874) NEGATIVE TITER COARSE SPECKLED (test code = 762188) NEGATIVE TITER DISCRETE NUCLEAR DOTS (test code = 864751) NEGATIVE TITER NUCLEOLAR (test code = 174578) NEGATIVE TITER NUCLEAR MEMBRANE (test code = 818447) NEGATIVE TITER CYTO. RETICULAR (CRISTINA) (test code = 367056) PRESENT COMMENTS (test code = 086671) NONE METHOD (test code = 39808) (NOTE) Fredi Allen Brooke (ANTI-NUCLEAR AB) WITH REFLEX [id number] 00:00:00* Test Item Value Reference Range Interpretation Comme nts ANTI-NUCLEAR ANTIBODIES (kia t code = 3506) POSITIVE PABLITO PATTERN (REPORTED TITER) (test code = 64378) SEE BELOW HOMOGENEOUS (test code = 77216) NEGATIVE TITER SPECKLED (test code = 535519) 1:160 TITER DENSE FINE SPECKLED (test co de = 70269) NEGATIVE TITER CENTROMERE (test code = 826796) NEGATIVE TITER COARSE SPECKLED (test code = 516444) NEGATIVE TITER DISCRETE NUCLEAR DOTS (test code = 123307) NEGATIVE TITER NUCLEOLAR (test code = 597349) NEGATIVE TITER NUCLEAR MEMBRANE (test code = 619031) NEGATIVE TITER CYTO. RETICULAR (CRISTINA) (test code = 599176) PRESENT COMMENTS (test code = 834042) NONE METHOD (test code = 58755) (NOTE) Fredi Allen Brooke (ANTI-NUCLEAR AB) WITH REFLEX [id number] 00:00:00* Test Item Value Reference Range Interpretation Comme nts ANTI-NUCLEAR ANTIBODIES (kia t code = 3506) POSITIVE PABLITO PATTERN (REPORTED TITER) (test code = 97002) SEE BELOW HOMOGENEOUS (test code = 95389) NEGATIVE TITER SPECKLED (test code = 046195) 1:160 TITER DENSE FINE SPECKLED (test co de = 79081) NEGATIVE TITER CENTROMERE (test code = 381334) NEGATIVE TITER COARSE SPECKLED (test code = 567291) NEGATIVE TITER DISCRETE NUCLEAR DOTS (test code = 158626) NEGATIVE TITER NUCLEOLAR (test code = 064360) NEGATIVE TITER NUCLEAR MEMBRANE (test code = 821557) NEGATIVE TITER CYTO. RETICULAR (CRISTINA) (test code = 099997) PRESENT COMMENTS (test code = 086187) NONE METHOD (test code = 95428) (NOTE) Fredi Cox (ANTI-NUCLEAR AB) WITH REFLEX [id number] 00:00:00* Test Item Value Reference Range Interpretation Comme nts ANTI-NUCLEAR ANTIBODIES (kia t code = 3506) POSITIVE PABLITO PATTERN (REPORTED TITER) (test code = 56085) SEE BELOW HOMOGENEOUS (test code = 72384) NEGATIVE TITER SPECKLED (test code = 013426) 1:160 TITER DENSE FINE SPECKLED (test co de = 97634) NEGATIVE TITER CENTROMERE (test code = 725530) NEGATIVE TITER COARSE SPECKLED (test code = 605025) NEGATIVE TITER DISCRETE NUCLEAR DOTS (test code = 322125) NEGATIVE TITER NUCLEOLAR (test code = 675980) NEGATIVE TITER NUCLEAR MEMBRANE (test code = 333611) NEGATIVE TITER CYTO. RETICULAR (CRISTINA) (test code = 174706) PRESENT COMMENTS (test code = 851529) NONE METHOD (test code = 18718) (NOTE) Fredi MartelHCV QUANT, REFLEX [id number] 20:16:04* Test Item Value Reference Range Interpretation Comme nts HCV RNA, PCR QUANT (test code = 4571) [id number] IU/ML H HCV VIRAL LOG (test code = 93757) 7.090 LOG IU/ML H Based on this re sult, reflex HCV Genotype testing will be performed and reported separately. Range of quantitation is 15-100,000,000 IU/mL, (1.176-8.000 logIU/mL). Samples with HCV RNA detected below the limit ofquantitation are reported as <15 IU/mL. Assay methodology ispolymerase chain reaction (PCR) using the [employer] 6800/8800system. The expected range is NOT DETECTED. HCV QUANT, REFLEX [id number] 00:00:00* Test Item Value Reference Range Interpretation Comme nts HCV RNA, PCR QUANT (test cod e = 4571) [id number] IU/ML HCV VIRAL LOG (test code = 34664) 7.090 LOGIU/ML Freid MartelHCV QUANT, REFLEX [id number] 00:00:00* Test Item Value Reference Range Interpretation Comme nts HCV RNA, PCR QUANT (test cod e = 4571) [id number] IU/ML HCV VIRAL LOG (test code = 29713) 7.090 LOGIU/ML Fredi Allen AustinHCV QUANT, REFLEX [id number] 00:00:00* Test Item Value Reference Range Interpretation Comme nts HCV RNA, PCR QUANT (test cod e = 4571) [id number] IU/ML HCV VIRAL LOG (test code = 68131) 7.090 LOGIU/ML Fredi Allen AustinHCV QUANT, REFLEX [id number] 00:00:00* Test Item Value Reference Range Interpretation Comme nts HCV RNA, PCR QUANT (test cod e = 4571) [id number] IU/ML HCV VIRAL LOG (test code = 72636) 7.090 LOGIU/ML Fredi MartelAFP, TUMOR [id number] 04:56:28* Test Item Value Reference Range Interpretation Comme nts AFP, TUMOR MARKER (test code = 03439) 48.80 NG/ML <=8.30 H HEPATITIS A TOTAL [id number] 04:38:42* Test Item Value Reference Range Interpretation Comme [facility] HEPATITIS A TOTAL AB (test c ode = 2725) NON-REACTIVE NON-REACTIVE HEPATITIS B SURFACE [id number] 04:38:42* Test Item Value Reference Range Interpretation Comme nts HEPATITIS B SURFACE AB (test code = 2737) NON-REACTIVE NON-REACTIVE HEPATITIS B SURF [id number] 04:38:42* Test Item Value Reference Range Interpretation Comme [facility] HEPATITIS B SURF AG (test co de = 2739) NON-REACTIVE NON-REACTIVE PROTHROMBIN TIME (PT)2024-04-22 03:33:31* Test Item Value Reference Range Interpretation Comme nts PROTHROMBIN TIME (PT) (test code = 1402) 12.8 SECONDS 12.5-14.7 INR (test code = 72122) 0.9 SEE BELOW CURRENT RECOMMENDATIONS ARE FOR AN INR OF 2.0-3.0 FOR ALL PATIENTS ON VITAMIN K ANTAGONISTS, EXCEPT THOSE WITH PROSTHETIC HEART VALVES, FOR WHOM INR OF 2.5-3.5 IS RECOMMENDED. CBC W/AUTO DIFF WITH [id number] 03:19:21* Test Item Value Reference Range Interpretation Comme nts WBC (test code = 1001) 6.3 K/UL 3.5-11.0 RBC (test code = 1002) 4.53 M/UL 4.50-6.10 HEMOGLOBIN (test code = 1003) 14.0 G/DL 13.5-17.0 HEMATOCRIT (test code = 1004) 42.2 % 40.0-51.0 MCV (test code = 1005) 93.2 fL 80.0-99.0 MCH (test code = 1006) 30.9 PG 25.0-33.0 MCHC (test code = 1007) 33.2 G/DL 31.0-36.0 RDW (test code = 1038) 13.4 % 11.5-15.0 NEUTROPHILS (test code = 1008) 44.3 % LYMPHOCYTES (test code = 1010) 43.7 % MONOCYTES (test code = 1011) 9.4 % EOSINOPHILS (test code = 1012) 1.9 % BASOPHILS (test code = 1013) 0.5 % IMMATURE GRANULOCYTES (test code = 1036) 0.2 % NUCLEATED RBCS (test code = 1065) 0.0 /100 WBC'S See_Comment [Automated messa ge] The system which generated this result transmitted reference range: 0.0. The reference range was not used to interpret this result as normal/abnormal. PLATELET COUNT (test code = 1015) 232 K/UL 130-400 ABSOLUTE NEUTROPHILS (test code = 1066) 2.80 K/UL 1.50-7.50 ABSOLUTE LYMPHOCYTES (test code = 1067) 2.75 K/UL 1.00-4.00 ABSOLUTE MONOCYTES (test code = 1068) 0.59 K/UL 0.20-1.00 ABSOLUTE EOSINOPHILS (test code = 1040) 0.12 K/UL 0.00-0.50 ABSOLUTE BASOPHILS (test code = 1069) 0.03 K/UL 0.00-0.20 ABS IMMATURE GRANULOCYTES (test code = 1020) 0.01 K/UL 0.00-0.10 ABS NUCLEATED RBCS (test code = 69056) 0.00 K/UL 0.00-0.11 AFP, TUMOR [id number] 00:00:00* Test Item Value Reference Range Interpretation Comme nts AFP, TUMOR MARKER (test code = 16269) 48.80 NG/ML Fredi MartelLoretta W/AUTO [id number] 00:00:00* Test Item Value Reference Range Interpretation Comme nts WBC (test code = 1001) 6.3 K/UL RBC (test code = 1002) 4.53 M/UL HEMOGLOBIN (test code = 1003) 14.0 G/DL HEMATOCRIT (test code = 1004) 42.2 % MCV (test code = 1005) 93.2 fL MCH (test code = 1006) 30.9 PG MCHC (test code = 1007) 33.2 G/DL RDW (test code = 1038) 13.4 % NEUTROPHILS (test code = 1008) 44.3 % LYMPHOCYTES (test code = 1010) 43.7 % MONOCYTES (test code = 1011) 9.4 % EOSINOPHILS (test code = 1012) 1.9 % BASOPHILS (test code = 1013) 0.5 % IMMATURE GRANULOCYTES (test code = 1036) 0.2 % NUCLEATED RBCS (test code = 1065) 0.0 /100WBC'S PLATELET COUNT (test code = 1015) 232 K/UL ABSOLUTE NEUTROPHILS (test c ode = 1066) 2.80 K/UL ABSOLUTE LYMPHOCYTES (test c ode = 1067) 2.75 K/UL ABSOLUTE MONOCYTES (test cod e = 1068) 0.59 K/UL ABSOLUTE EOSINOPHILS (test c ode = 1040) 0.12 K/UL ABSOLUTE BASOPHILS (test cod e = 1069) 0.03 K/UL ABS IMMATURE GRANULOCYTES (t est code = 1020) 0.01 K/UL ABS NUCLEATED RBCS (test cod e = 10398) 0.00 K/UL Fredi F AustinPROTHROMBIN TIME (PT)2024-04-22 00:00:00* Test Item Value Reference Range Interpretation Comme nts PROTHROMBIN TIME (PT) (test code = 1402) 12.8 SECONDS INR (test code = 95835) 0.9 Fredi F AustinHEPATITIS B SURFACE [id number] 00:00:00* Test Item Value Reference Range Interpretation Comme nts HEPATITIS B SURFACE AB (test code = 2737) NON-REACTIVE Fredi F AustinHEPATITIS B SURF [id number] 00:00:00* Test Item Value Reference Range Interpretation Comme nts HEPATITIS B SURF AG (test co de = 2739) NON-REACTIVE Fredi F AustinHEPATITIS A TOTAL [id number] 00:00:00* Test Item Value Reference Range Interpretation Comme nts HEPATITIS A TOTAL AB (test c ode = 2725) NON-REACTIVE Fredi MartelAFP, TUMOR [id number] 00:00:00* Test Item Value Reference Range Interpretation Comme nts AFP, TUMOR MARKER (test code = 83941) 48.80 NG/ML Fredi MartelCBC W/AUTO [id number] 00:00:00* Test Item Value Reference Range Interpretation Comme nts WBC (test code = 1001) 6.3 K/UL RBC (test code = 1002) 4.53 M/UL HEMOGLOBIN (test code = 1003) 14.0 G/DL HEMATOCRIT (test code = 1004) 42.2 % MCV (test code = 1005) 93.2 fL MCH (test code = 1006) 30.9 PG MCHC (test code = 1007) 33.2 G/DL RDW (test code = 1038) 13.4 % NEUTROPHILS (test code = 1008) 44.3 % LYMPHOCYTES (test code = 1010) 43.7 % MONOCYTES (test code = 1011) 9.4 % EOSINOPHILS (test code = 1012) 1.9 % BASOPHILS (test code = 1013) 0.5 % IMMATURE GRANULOCYTES (test code = 1036) 0.2 % NUCLEATED RBCS (test code = 1065) 0.0 /100WBC'S PLATELET COUNT (test code = 1015) 232 K/UL ABSOLUTE NEUTROPHILS (test c ode = 1066) 2.80 K/UL ABSOLUTE LYMPHOCYTES (test c ode = 1067) 2.75 K/UL ABSOLUTE MONOCYTES (test cod e = 1068) 0.59 K/UL ABSOLUTE EOSINOPHILS (test c ode = 1040) 0.12 K/UL ABSOLUTE BASOPHILS (test cod e = 1069) 0.03 K/UL ABS IMMATURE GRANULOCYTES (t est code = 1020) 0.01 K/UL ABS NUCLEATED RBCS (test cod e = 49300) 0.00 K/UL Fredi MartelPROTHROMBIN TIME (PT)2024-04-22 00:00:00* Test Item Value Reference Range Interpretation Comme nts PROTHROMBIN TIME (PT) (test code = 1402) 12.8 SECONDS INR (test code = 11724) 0.9 Fredi F AustinHEPATITIS B SURFACE [id number] 00:00:00* Test Item Value Reference Range Interpretation Comme nts HEPATITIS B SURFACE AB (test code = 2737) NON-REACTIVE Fredi Allen AustinHEPATITIS B SURF [id number] 00:00:00* Test Item Value Reference Range Interpretation Comme nts HEPATITIS B SURF AG (test co de = 2739) NON-REACTIVE Fredi Allen AustinHEPATITIS A TOTAL [id number] 00:00:00* Test Item Value Reference Range Interpretation Comme nts HEPATITIS A TOTAL AB (test c ode = 2725) NON-REACTIVE Fredi MartelAFP, TUMOR [id number] 00:00:00* Test Item Value Reference Range Interpretation Comme nts AFP, TUMOR MARKER (test code = 83911) 48.80 NG/ML Fredi MartelCBC W/AUTO [id number] 00:00:00* Test Item Value Reference Range Interpretation Comme nts WBC (test code = 1001) 6.3 K/UL RBC (test code = 1002) 4.53 M/UL HEMOGLOBIN (test code = 1003) 14.0 G/DL HEMATOCRIT (test code = 1004) 42.2 % MCV (test code = 1005) 93.2 fL MCH (test code = 1006) 30.9 PG MCHC (test code = 1007) 33.2 G/DL RDW (test code = 1038) 13.4 % NEUTROPHILS (test code = 1008) 44.3 % LYMPHOCYTES (test code = 1010) 43.7 % MONOCYTES (test code = 1011) 9.4 % EOSINOPHILS (test code = 1012) 1.9 % BASOPHILS (test code = 1013) 0.5 % IMMATURE GRANULOCYTES (test code = 1036) 0.2 % NUCLEATED RBCS (test code = 1065) 0.0 /100WBC'S PLATELET COUNT (test code = 1015) 232 K/UL ABSOLUTE NEUTROPHILS (test c ode = 1066) 2.80 K/UL ABSOLUTE LYMPHOCYTES (test c ode = 1067) 2.75 K/UL ABSOLUTE MONOCYTES (test cod e = 1068) 0.59 K/UL ABSOLUTE EOSINOPHILS (test c ode = 1040) 0.12 K/UL ABSOLUTE BASOPHILS (test cod e = 1069) 0.03 K/UL ABS IMMATURE GRANULOCYTES (t est code = 1020) 0.01 K/UL ABS NUCLEATED RBCS (test cod e = 10328) 0.00 K/UL Fredi MartelPROTHROMBIN TIME (PT)2024-04-22 00:00:00* Test Item Value Reference Range Interpretation Comme nts PROTHROMBIN TIME (PT) (test code = 1402) 12.8 SECONDS INR (test code = 14509) 0.9 Fredi MartelHEPATITIS B SURFACE [id number] 00:00:00* Test Item Value Reference Range Interpretation Comme nts HEPATITIS B SURFACE AB (test code = 2737) NON-REACTIVE Fredi Allen AustinHEPATITIS B SURF [id number] 00:00:00* Test Item Value Reference Range Interpretation Comme nts HEPATITIS B SURF AG (test co de = 2739) NON-REACTIVE Fredi Allen AustinHEPATITIS A TOTAL [id number] 00:00:00* Test Item Value Reference Range Interpretation Comme nts HEPATITIS A TOTAL AB (test c ode = 2725) NON-REACTIVE Fredi MartelAFP, TUMOR [id number] 00:00:00* Test Item Value Reference Range Interpretation Comme nts AFP, TUMOR MARKER (test code = 96342) 48.80 NG/ML Fredi MartelCBC W/AUTO [id number] 00:00:00* Test Item Value Reference Range Interpretation Comme nts WBC (test code = 1001) 6.3 K/UL RBC (test code = 1002) 4.53 M/UL HEMOGLOBIN (test code = 1003) 14.0 G/DL HEMATOCRIT (test code = 1004) 42.2 % MCV (test code = 1005) 93.2 fL MCH (test code = 1006) 30.9 PG MCHC (test code = 1007) 33.2 G/DL RDW (test code = 1038) 13.4 % NEUTROPHILS (test code = 1008) 44.3 % LYMPHOCYTES (test code = 1010) 43.7 % MONOCYTES (test code = 1011) 9.4 % EOSINOPHILS (test code = 1012) 1.9 % BASOPHILS (test code = 1013) 0.5 % IMMATURE GRANULOCYTES (test code = 1036) 0.2 % NUCLEATED RBCS (test code = 1065) 0.0 /100WBC'S PLATELET COUNT (test code = 1015) 232 K/UL ABSOLUTE NEUTROPHILS (test c ode = 1066) 2.80 K/UL ABSOLUTE LYMPHOCYTES (test c ode = 1067) 2.75 K/UL ABSOLUTE MONOCYTES (test cod e = 1068) 0.59 K/UL ABSOLUTE EOSINOPHILS (test c ode = 1040) 0.12 K/UL ABSOLUTE BASOPHILS (test cod e = 1069) 0.03 K/UL ABS IMMATURE GRANULOCYTES (t est code = 1020) 0.01 K/UL ABS NUCLEATED RBCS (test cod e = 31718) 0.00 K/UL Fredi Allen AustinPROTHROMBIN TIME (PT)2024-04-22 00:00:00* Test Item Value Reference Range Interpretation Comme nts PROTHROMBIN TIME (PT) (test code = 1402) 12.8 SECONDS INR (test code = 12687) 0.9 Fredi Allen AustinHEPATITIS B SURFACE [id number] 00:00:00* Test Item Value Reference Range Interpretation Comme nts HEPATITIS B SURFACE AB (test code = 2737) NON-REACTIVE Fredi F AustinHEPATITIS B SURF [id number] 00:00:00* Test Item Value Reference Range Interpretation Comme nts HEPATITIS B SURF AG (test co de = 2739) NON-REACTIVE Fredi F AustinHEPATITIS A TOTAL [id number] 00:00:00* Test Item Value Reference Range Interpretation Comme nts HEPATITIS A TOTAL AB (test c ode = 2725) NON-REACTIVE Fredi Allen AustinHEPATITIS C [id number] 22:45:30* Test Item Value Reference Range Interpretation Comme nts HEPATITIS C GENOTYPE (test code = 35551) 1a Assay method ology is real-time PCR amplification of the 5'UTR [id number] regions of the HCV genome utilizing the [employer] RealTime HCVGenotype II assay and [employer] HCV Genotype Plus assay. Possiblegenotypes include 1a, 1b, 2, 3, 4, 5, and 6. UNLESS OTHERWISE INDICATED, ALL TESTING PERFORMED AT [facility] [address] [place] [id number] [employer]: DOTTIE WOOTEN M.D. CLIA NUMBER [id number] [facility] [place]. [id number] HEPATITIS C GENOTYPE [REFLEX]2024-02-10 00:00:00* Test Item Value Reference Range Interpretation Comme [place] HEPATITIS C GENOTYPE (test c ode = 15463) mikki Allen AustinHEPATITIS C GENOTYPE [REFLEX]2024-02-10 00:00:00* Test Item Value Reference Range Interpretation Comme nts HEPATITIS C GENOTYPE (test c ode = 54088) mikki Allen AustinHEPATITIS C GENOTYPE [REFLEX]2024-02-10 00:00:00* Test Item Value Reference Range Interpretation Comme nts HEPATITIS C GENOTYPE (test c ode = 59721) mikki Allen AustinHEPATITIS C GENOTYPE [REFLEX]2024-02-10 00:00:00* Test Item Value Reference Range Interpretation Comme nts HEPATITIS C GENOTYPE (test c ode = 07699) mikki Allen AustinHEPATITIS C GENOTYPE [REFLEX]2024-02-10 00:00:00* Test Item Value Reference Range Interpretation Comme nts HEPATITIS C GENOTYPE (test c ode = 60571) mikki Allen AustinHEPATITIS C GENOTYPE [REFLEX]2024-02-10 00:00:00* Test Item Value Reference Range Interpretation Comme [place] HEPATITIS C GENOTYPE (test c ode = 70378) mikki MartelHEMOGLOBIN [id number] 22:24:32* Test Item Value Reference Range Interpretation Comme [place] HEMOGLOBIN A1c (test code = 77098) 14.8 % 4.2-5.6 H [employer] GUIDELINES FOR HGB A1C: PREDIABETES/INCREASED RISK . . . . . . . 5.7-6.4% DIAGNOSIS OF DIABETES . . . . . . . . . >=6.5% WITH CONFIRMATION OR APPROPRIATE SYMPTOMS NOTE: ASSAY MAY BE AFFECTED BY HEMOGLOBINOPATHIES (SICKLE CELL ANEMIA, S-C DISEASE, OTHERS) OR ARTIFICIALLY LOWERED BY DECREASED RED CELL SURVIVAL (HEMOLYTIC ANEMIAS, BLOOD LOSS, ETC.). CONSIDER ALTERNATE TESTING OR LABORATORY CONSULTATION. HCV QUANT, REFLEX [id number] 19:50:15* Test Item Value Reference Range Interpretation Comme [place] HCV RNA, PCR QUANT (test code = 4571) [id number] IU/ML H HCV VIRAL LOG (test code = 02044) 7.423 LOG IU/ML H Based on this re sult, reflex HCV Genotype testing will be performed and reported separately. Range of quantitation is 15-100,000,000 IU/mL, (1.176-8.000 logIU/mL). Samples with HCV RNA detected below the limit ofquantitation are reported as <15 IU/mL. Assay methodology ispolymerase chain reaction (PCR) using the [employer]ple Abr[employer] Dindong0/8800system. The expected range is NOT DETECTED. SEDIMENTATION [id number] 09:24:43* Test Item Value Reference Range Interpretation Comme nts SEDIMENTATION RATE (test cod e = 1017) 24 MM/HOUR 0-15 H PSA, [id number] 05:00:36* Test Item Value Reference Range Interpretation Comme nts PSA, TOTAL (test code = 2606) 0.50 NG/ML <=4.00 NOTE: Methodolog y is Dimple Abril Electrochemiluminescence Immunoassay traceable to WHO reference standard 96/760. TSH, THIRD [id number] 05:00:36* Test Item Value Reference Range Interpretation Comme nts TSH, THIRD GENERATION (test code = 2821) 0.931 UIU/ML 0.400-4.100 LIPID [id number] 04:58:59* Test Item Value Reference Range Interpretation Comme nts CHOLESTEROL (test code = 2210) 176 MG/DL <200 TRIGLYCERIDES (test code = 2232) 173 MG/DL <150 H HDL CHOLESTEROL (test code = 2220) 41 MG/DL >39 CALC LDL CHOL (test code = 2237) 106 MG/DL <100 H NOTE: CALCULATED LDL IS BASED ON WINSTON-RODAS METHOD WHICHINCLUDES ADJUSTABLE TRIGLYCERIDE:VLDL CHOLESTEROL RATIO.THIS FACTOR VARIES BY MEASURED TRIGLYCERIDE AND NON-HDLCHOLESTEROL CONCENTRATIONS WITH INCREASED CALCULATED LDL SEENIN HIGHER TRIGLYCERIDE OR LOWER NON-HDL SPECIMENS. FOR MOREINFORMATION, SEE CLIENT ANNOUNCEMENT AT [email or web address] RISK RATIO LDL/HDL (test code = 2238) 2.59 RATIO <3.55 COMPREHENSIVE METABOLIC [id number] 04:58:59* Test Item Value Reference Range Interpretation Comme nts GLUCOSE (test code = 2217) 550 MG/DL 70-99 HH RESULTS RECHECKE D AND VERIFIED BUN (test code = 2208) 29 MG/DL 8-23 H CREATININE (test code = 2214) 1.77 MG/DL 0.80-1.40 H eGFR (2020 CKD-EPI) (test code = 90131) 42 ML/MIN/1.73 >60 L CALC BUN/CREAT (test code = 2234) 16 RATIO 6-28 SODIUM (test code = 2230) 134 MEQ/L 133-146 POTASSIUM (test code = 2227) 5.1 MEQ/L 3.5-5.4 CHLORIDE (test code = 2214) 97 MEQ/L 95-107 CARBON DIOXIDE (test code = 2205) 23 MEQ/L 19-31 CALCIUM (test code = 2208) 9.4 MG/DL 8.5-10.5 PROTEIN, TOTAL (test code = 2228) 6.9 G/DL 6.1-8.3 ALBUMIN (test code = 2200) 3.7 G/DL 3.5-5.2 CALC GLOBULIN (test code = 2239) 3.2 G/DL 1.9-3.7 CALC A/G RATIO (test code = 2233) 1.2 RATIO 1.0-2.6 BILIRUBIN, TOTAL (test code = 2206) 0.4 MG/DL <=1.2 ALKALINE PHOSPHATASE (test code = 2203) 67 U/L 40-125 AST (test code = 2217) 137 U/L 9-50 H ALT (test code = 2218) 270 U/L 5-50 H ALBUMIN/CREATININE RATIO, URINE, [id number] 03:31:31* Test Item Value Reference Range Interpretation Comme nts CREATININE, URINE, CONC. (test code = 2072) 44.8 MG/DL NOT ESTAB ALBUMIN, URINE, RANDOM (test code = 43305) 0.2 MG/DL NOT ESTAB CALC ALBUMIN/CREAT, RND (test code = 12004) 4 MG/G <30 Note: Albumin/Creatinine ratio reference interval reflects ADA and NKF guidelines. HIV 1/2 4TH GEN, RFLX [id number] 03:27:31* Test Item Value Reference Range Interpretation Comme nts HIV 1/2 4TH GEN, RFLX CONF ( test code = 3514) NON-REACTIVE NON-REACTIVE HCV, RFLX QNT, RFLX HAMZAH (QNT>500)2024-02-03 03:27:31* Test Item Value Reference Range Interpretation Comme nts HEPATITIS C ANTIBODY (test c ode = 4675) REACTIVE NON-REACTIVE A HEMOGLOBIN [id number] 00:00:00* Test Item Value Reference Range Interpretation Comme nts HEMOGLOBIN A1c (test code = 71214) 14.8 % Fredi MartelLIPID [id number] 00:00:00* Test Item Value Reference Range Interpretation Comme nts CHOLESTEROL (test code = 2210) 176 MG/DL TRIGLYCERIDES (test code = 2232) 173 MG/DL HDL CHOLESTEROL (test code = 2220) 41 MG/DL CALC LDL CHOL (test code = 2237) 106 MG/DL RISK RATIO LDL/HDL (test cod e = 2238) 2.59 RATIO Fredi MartelCOMPREHENSIVE METABOLIC [id number] 00:00:00* Test Item Value Reference Range Interpretation Comme nts GLUCOSE (test code = 2217) 550 MG/DL BUN (test code = 2208) 29 MG/DL CREATININE (test code = 2214) 1.77 MG/DL eGFR (2020 CKD-EPI) (test co de = 00623) 42 ML/MIN/1.73 CALC BUN/CREAT (test code = 2235) 16 RATIO SODIUM (test code = 2231) 134 MEQ/L POTASSIUM (test code = 2228) 5.1 MEQ/L CHLORIDE (test code = 2215) 97 MEQ/L CARBON DIOXIDE (test code = 2206) 23 MEQ/L CALCIUM (test code = 2209) 9.4 MG/DL PROTEIN, TOTAL (test code = 2229) 6.9 G/DL ALBUMIN (test code = 2201) 3.7 G/DL CALC GLOBULIN (test code = 2240) 3.2 G/DL CALC A/G RATIO (test code = 2234) 1.2 RATIO BILIRUBIN, TOTAL (test code = 2207) 0.4 MG/DL ALKALINE PHOSPHATASE (test code = 2204) 67 U/L AST (test code = 2218) 137 U/L ALT (test code = 2219) 270 U/L Fredi MartelPSA, [id number] 00:00:00* Test Item Value Reference Range Interpretation Comme nts PSA, TOTAL (test code = 2606) 0.50 NG/ML Fredi MartelHIV 1/2 4TH GEN, RFLX [id number] 00:00:00* Test Item Value Reference Range Interpretation Comme [place] HIV 1/2 4TH GEN, RFLX CONF ( test code = 3514) NON-REACTIVE Fredi MartelHCV, RFLX QNT, RFLX HAMZAH (QNT>500)2024-02-03 00:00:00* Test Item Value Reference Range Interpretation Comme [place] HEPATITIS C ANTIBODY (test c ode = 4675) REACTIVE Fredi MartelTSH, THIRD [id number] 00:00:00* Test Item Value Reference Range Interpretation Comme [place] TSH, THIRD GENERATION (test code = 2821) 0.931 UIU/ML Fredi MartelSEDIMENTATION [id number] 00:00:00* Test Item Value Reference Range Interpretation Comme nts SEDIMENTATION RATE (test cod e = 1017) 24 MM/HOUR Fredi MartelALBUMIN/CREATININE RATIO, RANDOM [id number] 00:00:00* Test Item Value Reference Range Interpretation Comme [place] CREATININE, URINE, CONC. (te st code = 2072) 44.8 MG/DL ALBUMIN, URINE, RANDOM (test code = 57665) 0.2 MG/DL CALC ALBUMIN/CREAT, RND (kia t code = 74540) 4 MG/G Fredi MartelHCV QUANT, REFLEX GENOTYPE [REFLEX]2024-02-03 00:00:00* Test Item Value Reference Range Interpretation Comme [place] HCV RNA, PCR QUANT (test cod e = 4571) [id number] IU/ML HCV VIRAL LOG (test code = 71264) 7.423 LOGIU/ML Fredi MartelHEMOGLOBIN [id number] 00:00:00* Test Item Value Reference Range Interpretation Comme [place] HEMOGLOBIN A1c (test code = 79440) 14.8 % Fredi MartelLIPID [id number] 00:00:00* Test Item Value Reference Range Interpretation Comme [place] CHOLESTEROL (test code = 2210) 176 MG/DL TRIGLYCERIDES (test code = 2232) 173 MG/DL HDL CHOLESTEROL (test code = 2220) 41 MG/DL CALC LDL CHOL (test code = 2237) 106 MG/DL RISK RATIO LDL/HDL (test cod e = 2238) 2.59 RATIO Fredi MartelCOMPREHENSIVE METABOLIC [id number] 00:00:00* Test Item Value Reference Range Interpretation Comme nts GLUCOSE (test code = 2216) 550 MG/DL BUN (test code = 2208) 29 MG/DL CREATININE (test code = 2214) 1.77 MG/DL eGFR (2020 CKD-EPI) (test co de = 16977) 42 ML/MIN/1.73 CALC BUN/CREAT (test code = 2235) 16 RATIO SODIUM (test code = 223) 134 MEQ/L POTASSIUM (test code = 2228) 5.1 MEQ/L CHLORIDE (test code = 2215) 97 MEQ/L CARBON DIOXIDE (test code = 2206) 23 MEQ/L CALCIUM (test code = 2209) 9.4 MG/DL PROTEIN, TOTAL (test code = 2228) 6.9 G/DL ALBUMIN (test code = 220) 3.7 G/DL CALC GLOBULIN (test code = 2240) 3.2 G/DL CALC A/G RATIO (test code = 2234) 1.2 RATIO BILIRUBIN, TOTAL (test code = 2206) 0.4 MG/DL ALKALINE PHOSPHATASE (test code = 2203) 67 U/L AST (test code = 2218) 137 U/L ALT (test code = 2219) 270 U/L Fredi MartelPSA, [id number] 00:00:00* Test Item Value Reference Range Interpretation Comme nts PSA, TOTAL (test code = 2606) 0.50 NG/ML Fredi MartelHIV 1/2 4TH GEN, RFLX [id number] 00:00:00* Test Item Value Reference Range Interpretation Comme nts HIV 1/2 4TH GEN, RFLX CONF ( test code = 3514) NON-REACTIVE Fredi MartelHCV, RFLX QNT, RFLX HAMZAH (QNT>500)2024-02-03 00:00:00* Test Item Value Reference Range Interpretation Comme nts HEPATITIS C ANTIBODY (test c ode = 4675) REACTIVE Fredi MartelTSH, THIRD [id number] 00:00:00* Test Item Value Reference Range Interpretation Comme nts TSH, THIRD GENERATION (test code = 2821) 0.931 UIU/ML Fredi MartelSEDIMENTATION [id number] 00:00:00* Test Item Value Reference Range Interpretation Comme nts SEDIMENTATION RATE (test cod e = 1017) 24 MM/HOUR Fredi MartelALBUMIN/CREATININE RATIO, RANDOM [id number] 00:00:00* Test Item Value Reference Range Interpretation Comme [place] CREATININE, URINE, CONC. (te st code = 2072) 44.8 MG/DL ALBUMIN, URINE, RANDOM (test code = 88122) 0.2 MG/DL CALC ALBUMIN/CREAT, RND (kia t code = 11698) 4 MG/G Fredi MartelHCV QUANT, REFLEX GENOTYPE [REFLEX]2024-02-03 00:00:00* Test Item Value Reference Range Interpretation Comme [place] HCV RNA, PCR QUANT (test cod e = 4571) [id number] IU/ML HCV VIRAL LOG (test code = 47492) 7.423 LOGIU/ML Fredi MartelHEMOGLOBIN [id number] 00:00:00* Test Item Value Reference Range Interpretation Comme [place] HEMOGLOBIN A1c (test code = 72032) 14.8 % Fredi MartelLIPID [id number] 00:00:00* Test Item Value Reference Range Interpretation Comme [place] CHOLESTEROL (test code = 2210) 176 MG/DL TRIGLYCERIDES (test code = 2232) 173 MG/DL HDL CHOLESTEROL (test code = 2220) 41 MG/DL CALC LDL CHOL (test code = 2237) 106 MG/DL RISK RATIO LDL/HDL (test cod e = 2238) 2.59 RATIO Fredi MartelCOMPREHENSIVE METABOLIC [id number] 00:00:00* Test Item Value Reference Range Interpretation Comme [place] GLUCOSE (test code = 2217) 550 MG/DL BUN (test code = 2208) 29 MG/DL CREATININE (test code = 2214) 1.77 MG/DL eGFR (2020 CKD-EPI) (test co de = 28801) 42 ML/MIN/1.73 CALC BUN/CREAT (test code = 2235) 16 RATIO SODIUM (test code = 2231) 134 MEQ/L POTASSIUM (test code = 2228) 5.1 MEQ/L CHLORIDE (test code = 2215) 97 MEQ/L CARBON DIOXIDE (test code = 2206) 23 MEQ/L CALCIUM (test code = 2209) 9.4 MG/DL PROTEIN, TOTAL (test code = 2229) 6.9 G/DL ALBUMIN (test code = 2201) 3.7 G/DL CALC GLOBULIN (test code = 2240) 3.2 G/DL CALC A/G RATIO (test code = 2234) 1.2 RATIO BILIRUBIN, TOTAL (test code = 2207) 0.4 MG/DL ALKALINE PHOSPHATASE (test code = 2204) 67 U/L AST (test code = 2218) 137 U/L ALT (test code = 2219) 270 U/L Fredi MartelPSA, [id number] 00:00:00* Test Item Value Reference Range Interpretation Comme [place] PSA, TOTAL (test code = 2606) 0.50 NG/ML Fredi MartelHIV 1/2 4TH GEN, RFLX [id number] 00:00:00* Test Item Value Reference Range Interpretation Comme [place] HIV 1/2 4TH GEN, RFLX CONF ( test code = 3514) NON-REACTIVE Fredi MartelHCV, RFLX QNT, RFLX HAMZAH (QNT>500)2024-02-03 00:00:00* Test Item Value Reference Range Interpretation Comme [place] HEPATITIS C ANTIBODY (test c ode = 4675) REACTIVE Fredi MartelTSH, THIRD [id number] 00:00:00* Test Item Value Reference Range Interpretation Comme nts TSH, THIRD GENERATION (test code = 2821) 0.931 UIU/ML Fredi MartelSEDIMENTATION [id number] 00:00:00* Test Item Value Reference Range Interpretation Comme nts SEDIMENTATION RATE (test cod e = 1017) 24 MM/HOUR Fredi MartelALBUMIN/CREATININE RATIO, RANDOM [id number] 00:00:00* Test Item Value Reference Range Interpretation Comme [place] CREATININE, URINE, CONC. (te st code = 2072) 44.8 MG/DL ALBUMIN, URINE, RANDOM (test code = 35349) 0.2 MG/DL CALC ALBUMIN/CREAT, RND (kia t code = 07602) 4 MG/G Fredi MartelHCV QUANT, REFLEX GENOTYPE [REFLEX]2024-02-03 00:00:00* Test Item Value Reference Range Interpretation Comme [place] HCV RNA, PCR QUANT (test cod e = 4571) [id number] IU/ML HCV VIRAL LOG (test code = 66940) 7.423 LOGIU/ML Fredi MartelHEMOGLOBIN [id number] 00:00:00* Test Item Value Reference Range Interpretation Comme nts HEMOGLOBIN A1c (test code = 01775) 14.8 % Fredi MartelLIPID [id number] 00:00:00* Test Item Value Reference Range Interpretation Comme nts CHOLESTEROL (test code = 2210) 176 MG/DL TRIGLYCERIDES (test code = 2232) 173 MG/DL HDL CHOLESTEROL (test code = 2220) 41 MG/DL CALC LDL CHOL (test code = 2237) 106 MG/DL RISK RATIO LDL/HDL (test cod e = 2238) 2.59 RATIO Fredi MartelCOMPREHENSIVE METABOLIC [id number] 00:00:00* Test Item Value Reference Range Interpretation Comme nts GLUCOSE (test code = 2217) 550 MG/DL BUN (test code = 2208) 29 MG/DL CREATININE (test code = 2214) 1.77 MG/DL eGFR (2020 CKD-EPI) (test co de = 27311) 42 ML/MIN/1.73 CALC BUN/CREAT (test code = 2235) 16 RATIO SODIUM (test code = 2231) 134 MEQ/L POTASSIUM (test code = 2228) 5.1 MEQ/L CHLORIDE (test code = 2215) 97 MEQ/L CARBON DIOXIDE (test code = 2206) 23 MEQ/L CALCIUM (test code = 2209) 9.4 MG/DL PROTEIN, TOTAL (test code = 2229) 6.9 G/DL ALBUMIN (test code = 2201) 3.7 G/DL CALC GLOBULIN (test code = 2240) 3.2 G/DL CALC A/G RATIO (test code = 2234) 1.2 RATIO BILIRUBIN, TOTAL (test code = 2207) 0.4 MG/DL ALKALINE PHOSPHATASE (test code = 2204) 67 U/L AST (test code = 2218) 137 U/L ALT (test code = 2219) 270 U/L Fredi MartelPSA, [id number] 00:00:00* Test Item Value Reference Range Interpretation Comme nts PSA, TOTAL (test code = 2606) 0.50 NG/ML Fredi MartelHIV 1/2 4TH GEN, RFLX [id number] 00:00:00* Test Item Value Reference Range Interpretation Comme [place] HIV 1/2 4TH GEN, RFLX CONF ( test code = 3514) NON-REACTIVE Fredi MartelHCV, RFLX QNT, RFLX HAMZAH (QNT>500)2024-02-03 00:00:00* Test Item Value Reference Range Interpretation Comme [place] HEPATITIS C ANTIBODY (test c ode = 4675) REACTIVE Fredi MartelTSH, THIRD [id number] 00:00:00* Test Item Value Reference Range Interpretation Comme [place] TSH, THIRD GENERATION (test code = 2821) 0.931 UIU/ML Fredi MartelSEDIMENTATION [id number] 00:00:00* Test Item Value Reference Range Interpretation Comme nts SEDIMENTATION RATE (test cod e = 1017) 24 MM/HOUR Fredi MartelALBUMIN/CREATININE RATIO, RANDOM [id number] 00:00:00* Test Item Value Reference Range Interpretation Comme [place] CREATININE, URINE, CONC. (te st code = 2072) 44.8 MG/DL ALBUMIN, URINE, RANDOM (test code = 84709) 0.2 MG/DL CALC ALBUMIN/CREAT, RND (kia t code = 80709) 4 MG/G Fredi MartelHCV QUANT, REFLEX GENOTYPE [REFLEX]2024-02-03 00:00:00* Test Item Value Reference Range Interpretation Comme [place] HCV RNA, PCR QUANT (test cod e = 4571) [id number] IU/ML HCV VIRAL LOG (test code = 19607) 7.423 LOGIU/ML Fredi MartelHEMOGLOBIN [id number] 00:00:00* Test Item Value Reference Range Interpretation Comme [place] HEMOGLOBIN A1c (test code = 48265) 14.8 % Fredi MartelLIPID [id number] 00:00:00* Test Item Value Reference Range Interpretation Comme [place] CHOLESTEROL (test code = 2210) 176 MG/DL TRIGLYCERIDES (test code = 2232) 173 MG/DL HDL CHOLESTEROL (test code = 2220) 41 MG/DL CALC LDL CHOL (test code = 2237) 106 MG/DL RISK RATIO LDL/HDL (test cod e = 2238) 2.59 RATIO Fredi MartelCOMPREHENSIVE METABOLIC [id number] 00:00:00* Test Item Value Reference Range Interpretation Comme nts GLUCOSE (test code = 2217) 550 MG/DL BUN (test code = 2208) 29 MG/DL CREATININE (test code = 2214) 1.77 MG/DL eGFR (2020 CKD-EPI) (test co de = 52078) 42 ML/MIN/1.73 CALC BUN/CREAT (test code = 2235) 16 RATIO SODIUM (test code = 2231) 134 MEQ/L POTASSIUM (test code = 2228) 5.1 MEQ/L CHLORIDE (test code = 2215) 97 MEQ/L CARBON DIOXIDE (test code = 2206) 23 MEQ/L CALCIUM (test code = 2209) 9.4 MG/DL PROTEIN, TOTAL (test code = 2229) 6.9 G/DL ALBUMIN (test code = 2201) 3.7 G/DL CALC GLOBULIN (test code = 2240) 3.2 G/DL CALC A/G RATIO (test code = 2234) 1.2 RATIO BILIRUBIN, TOTAL (test code = 2207) 0.4 MG/DL ALKALINE PHOSPHATASE (test code = 2204) 67 U/L AST (test code = 2218) 137 U/L ALT (test code = 2219) 270 U/L Fredi MartelPSA, [id number] 00:00:00* Test Item Value Reference Range Interpretation Comme nts PSA, TOTAL (test code = 2606) 0.50 NG/ML Fredi MartelHIV 1/2 4TH GEN, RFLX [id number] 00:00:00* Test Item Value Reference Range Interpretation Comme nts HIV 1/2 4TH GEN, RFLX CONF ( test code = 3514) NON-REACTIVE Fredi MartelHCV, RFLX QNT, RFLX HAMZAH (QNT>500)2024-02-03 00:00:00* Test Item Value Reference Range Interpretation Comme nts HEPATITIS C ANTIBODY (test c ode = 4675) REACTIVE Fredi MartelTSH, THIRD [id number] 00:00:00* Test Item Value Reference Range Interpretation Comme nts TSH, THIRD GENERATION (test code = 2821) 0.931 UIU/ML Fredi MartelSEDIMENTATION [id number] 00:00:00* Test Item Value Reference Range Interpretation Comme nts SEDIMENTATION RATE (test cod e = 1017) 24 MM/HOUR Fredi MartelALBUMIN/CREATININE RATIO, RANDOM [id number] 00:00:00* Test Item Value Reference Range Interpretation Comme [place] CREATININE, URINE, CONC. (te st code = 2072) 44.8 MG/DL ALBUMIN, URINE, RANDOM (test code = 46577) 0.2 MG/DL CALC ALBUMIN/CREAT, RND (kia t code = 14302) 4 MG/G Fredi MartelHCV QUANT, REFLEX GENOTYPE [REFLEX]2024-02-03 00:00:00* Test Item Value Reference Range Interpretation Comme [place] HCV RNA, PCR QUANT (test cod e = 4571) [id number] IU/ML HCV VIRAL LOG (test code = 88795) 7.423 LOGIU/ML Fredi MartelHEMOGLOBIN [id number] 00:00:00* Test Item Value Reference Range Interpretation Comme [place] HEMOGLOBIN A1c (test code = 43047) 14.8 % Fredi MartelLIPID [id number] 00:00:00* Test Item Value Reference Range Interpretation Comme nts CHOLESTEROL (test code = 2210) 176 MG/DL TRIGLYCERIDES (test code = 2232) 173 MG/DL HDL CHOLESTEROL (test code = 2220) 41 MG/DL CALC LDL CHOL (test code = 2237) 106 MG/DL RISK RATIO LDL/HDL (test cod e = 2238) 2.59 RATIO Fredi MartelCOMPREHENSIVE METABOLIC [id number] 00:00:00* Test Item Value Reference Range Interpretation Comme nts GLUCOSE (test code = 2217) 550 MG/DL BUN (test code = 2208) 29 MG/DL CREATININE (test code = 2214) 1.77 MG/DL eGFR (2020 CKD-EPI) (test co de = 54195) 42 ML/MIN/1.73 CALC BUN/CREAT (test code = 2235) 16 RATIO SODIUM (test code = 2231) 134 MEQ/L POTASSIUM (test code = 2228) 5.1 MEQ/L CHLORIDE (test code = 2215) 97 MEQ/L CARBON DIOXIDE (test code = 2206) 23 MEQ/L CALCIUM (test code = 2209) 9.4 MG/DL PROTEIN, TOTAL (test code = 2229) 6.9 G/DL ALBUMIN (test code = 2201) 3.7 G/DL CALC GLOBULIN (test code = 2240) 3.2 G/DL CALC A/G RATIO (test code = 2234) 1.2 RATIO BILIRUBIN, TOTAL (test code = 2207) 0.4 MG/DL ALKALINE PHOSPHATASE (test code = 2204) 67 U/L AST (test code = 2218) 137 U/L ALT (test code = 2219) 270 U/L Fredi MartelPSA, [id number] 00:00:00* Test Item Value Reference Range Interpretation Comme [place] PSA, TOTAL (test code = 2606) 0.50 NG/ML Fredi MartelHIV 1/2 4TH GEN, RFLX [id number] 00:00:00* Test Item Value Reference Range Interpretation Comme [place] HIV 1/2 4TH GEN, RFLX CONF ( test code = 3514) NON-REACTIVE Fredi MartelHCV, RFLX QNT, RFLX HAMZAH (QNT>500)2024-02-03 00:00:00* Test Item Value Reference Range Interpretation Comme [place] HEPATITIS C ANTIBODY (test c ode = 4675) REACTIVE Fredi MartelTSH, THIRD [id number] 00:00:00* Test Item Value Reference Range Interpretation Comme [place] TSH, THIRD GENERATION (test code = 2821) 0.931 UIU/ML Fredi MartelSEDIMENTATION [id number] 00:00:00* Test Item Value Reference Range Interpretation Comme nts SEDIMENTATION RATE (test cod e = 1017) 24 MM/HOUR Fredi MartelALBUMIN/CREATININE RATIO, RANDOM [id number] 00:00:00* Test Item Value Reference Range Interpretation Comme [place] CREATININE, URINE, CONC. (te st code = 2072) 44.8 MG/DL ALBUMIN, URINE, RANDOM (test code = 37612) 0.2 MG/DL CALC ALBUMIN/CREAT, RND (kia t code = 08938) 4 MG/G Fredi MartelHCV QUANT, REFLEX GENOTYPE [REFLEX]2024-02-03 00:00:00* Test Item Value Reference Range Interpretation Comme nts HCV RNA, PCR QUANT (test cod e = 4571) [id number] IU/ML HCV VIRAL LOG (test code = 93097) 7.423 LOGIU/ML Fredi Allen AustinPTH RELATED [id number] 14:09:41* Test Item Value Reference Range Interpretation Comme nts PTH RELATED PEPTIDE (test code = 29188) 0.6 pmol/L See_Comment ---ADDITI ONAL INFORMATION -----This test was developed and its performance characteristics determined by [facility] in a manner consistent with CLIA requirements. This test has not been cleared or approved by the U.S. Food and Drug Administration. TESTING PERFORMED AT [facility] [address] [place] [id number] [place]. [id number] CLIA NO. [id number] UNLESS OTHERWISE INDICATED, ALL TESTING PERFORMED AT [facility] [address] [place] [id number] [employer]: DOTTIE WOOTEN M.D. CLIA NUMBER [id number] [place]. [id number] [Automated message] The system which generated this result transmitted reference range: < or = 4.2. The reference range was not used to interpret this result as normal/abnormal. PTH RELATED [id number] 00:00:00* Test Item Value Reference Range Interpretation Comme nts PTH RELATED PEPTIDE (test co de = 11672) 0.6 pmol/L Fredi Allen AustinPTH RELATED [id number] 00:00:00* Test Item Value Reference Range Interpretation Comme nts PTH RELATED PEPTIDE (test co de = 38321) 0.6 pmol/L Fredi Tiffany AustinPTH RELATED [id number] 00:00:00* Test Item Value Reference Range Interpretation Comme nts PTH RELATED PEPTIDE (test co de = 56089) 0.6 pmol/L Fredi F AustinPTH RELATED [id number] 00:00:00* Test Item Value Reference Range Interpretation Comme nts PTH RELATED PEPTIDE (test co de = 29848) 0.6 pmol/L Fredi Tiffany AustinPTH RELATED [id number] 00:00:00* Test Item Value Reference Range Interpretation Comme nts PTH RELATED PEPTIDE (test co de = 35426) 0.6 pmol/L Fredi F AustinPTH RELATED [id number] 00:00:00* Test Item Value Reference Range Interpretation Comme nts PTH RELATED PEPTIDE (test co de = 02099) 0.6 pmol/L Fredi Allen AustinPTH RELATED [id number] 00:00:00* Test Item Value Reference Range Interpretation Comme nts PTH RELATED PEPTIDE (test co de = 61572) 0.6 pmol/L Fredi Allen AustinPTH RELATED [id number] 00:00:00* Test Item Value Reference Range Interpretation Comme nts PTH RELATED PEPTIDE (test co de = 68267) 0.6 pmol/L Fredi Allen AustinPTH RELATED [id number] 00:00:00* Test Item Value Reference Range Interpretation Comme nts PTH RELATED PEPTIDE (test co de = [address]) 0.6 pmol/L Fredi MartelCOMPREHENSIVE METABOLIC [id number] 05:39:47* Test Item Value Reference Range Interpretation Comme nts GLUCOSE (test code = 7) 147 MG/DL 70-99 H BUN (test code = 2207) 14 MG/DL 8-23 CREATININE (test code = 2213) 1.41 MG/DL 0.80-1.40 H eGFR (2020 CKD-EPI) (test code = 90189) 55 ML/MIN/1.73 >60 L The NKF-ASN Taskforce recommends use of Cystatin C to confirm eGFR inadults at risk for CKD. [facility] offers eGFR with Cystatin C-Creatinineusing the 2020 CKD-EPI eGFR_creat-cystat equation (order code 3057) toincrease the accuracy of estimated GFR. For more information, contactur accounts payable bookkeeper or see announcement [email or web address] CALC BUN/CREAT (test code = 2234) 10 RATIO 6-28 SODIUM (test code = 223) 139 MEQ/L 133-146 POTASSIUM (test code = 2228) 5.0 MEQ/L 3.5-5.4 CHLORIDE (test code = 2215) 104 MEQ/L 95-107 CARBON DIOXIDE (test code = 6) 23 MEQ/L 19-31 CALCIUM (test code = 2208) 9.7 MG/DL 8.5-10.5 PROTEIN, TOTAL (test code = 222) 7.8 G/DL 6.1-8.3 ALBUMIN (test code = 2200) 4.2 G/DL 3.5-5.2 CALC GLOBULIN (test code = 2239) 3.6 G/DL 1.9-3.7 CALC A/G RATIO (test code = 2233) 1.2 RATIO 1.0-2.6 BILIRUBIN, TOTAL (test code = 2206) 0.3 MG/DL <=1.2 ALKALINE PHOSPHATASE (test code = 2203) 65 U/L 40-123 AST (test code = 2217) 67 U/L 9-50 H ALT (test code = 2218) 124 U/L 5-50 H LIPID [id number] 05:39:47* Test Item Value Reference Range Interpretation Comme nts CHOLESTEROL (test code = 2209) 156 MG/DL <200 TRIGLYCERIDES (test code = 2231) 87 MG/DL <150 HDL CHOLESTEROL (test code = 2219) 47 MG/DL >39 CALC LDL CHOL (test code = 2236) 91 MG/DL <100 NOTE: CALCULATED LDL IS BASED ON WINSOTN-RODAS METHOD WHICHINCLUDES ADJUSTABLE TRIGLYCERIDE:VLDL CHOLESTEROL RATIO.THIS FACTOR VARIES BY MEASURED TRIGLYCERIDE AND NON-HDLCHOLESTEROL CONCENTRATIONS WITH INCREASED CALCULATED LDL SEENIN HIGHER TRIGLYCERIDE OR LOWER NON-HDL SPECIMENS. FOR MOREINFORMATION, SEE CLIENT ANNOUNCEMENT AT [email or web address] [email or web address] RATIO LDL/HDL (test code = 2237) 1.94 RATIO <3.55 IRON BINDING CAPACITY AND IRON AND % [id number] 05:39:47* Test Item Value Reference Range Interpretation Comme nts IRON, SERUM (test code = 2221) 70 UG/DL 59-158 UNSATURATED IBC (test code = ) 289 UG/DL 112-347 CALC TOTAL IBC (test code = 2076) 359 UG/DL 250-450 CALC % IRON SAT (test code = 2078) 19 % 20-50 L [id number] 05:33:53* Test Item Value Reference Range Interpretation Comme nts FERRITIN (test code = 2074) 492 NG/ML 30-400 H [id number] 05:33:10* Test Item Value Reference Range Interpretation Comme nts TRANSFERRIN (test code = 4936) 298 MG/DL 200-360 ALBUMIN/CREATININE RATIO, URINE, [id number] 04:56:17* Test Item Value Reference Range Interpretation Comme nts CREATININE, URINE, CONC. (test code = 2072) 138.8 MG/DL NOT ESTAB ALBUMIN, URINE, RANDOM (test code = 86485) 3.2 MG/DL NOT ESTAB CALC ALBUMIN/CREAT, RND (test code = 90308) 23 MG/G <30 Note: Albumin/Creatinine ratio reference interval reflects ADA and NKF guidelines. HEMOGLOBIN [id number] 02:57:59* Test Item Value Reference Range Interpretation Comme nts HEMOGLOBIN A1c (test code = 09151) 6.2 % 4.2-5.6 H [employer] GUIDELINES FOR HGB A1C: PREDIABETES/INCREASED RISK . . . . . . . 5.7-6.4% DIAGNOSIS OF DIABETES . . . . . . . . . >=6.5% WITH CONFIRMATION OR APPROPRIATE SYMPTOMS NOTE: ASSAY MAY BE AFFECTED BY HEMOGLOBINOPATHIES (SICKLE CELL ANEMIA, S-C DISEASE, OTHERS) OR ARTIFICIALLY LOWERED BY DECREASED RED CELL SURVIVAL (HEMOLYTIC ANEMIAS, BLOOD LOSS, ETC.). CONSIDER ALTERNATE TESTING OR LABORATORY CONSULTATION. CBC W/AUTO DIFF WITH [id number] 02:12:16* Test Item Value Reference Range Interpretation Comme nts WBC (test code = 1001) 6.4 K/UL 3.5-11.0 RBC (test code = 1002) 4.61 M/UL 4.50-6.10 HEMOGLOBIN (test code = 1003) 14.0 G/DL 13.5-17.0 HEMATOCRIT (test code = 1004) 41.5 % 40.0-51.0 MCV (test code = 1005) 90.0 fL 80.0-99.0 MCH (test code = 1006) 30.4 PG 25.0-33.0 MCHC (test code = 1007) 33.7 G/DL 31.0-36.0 RDW (test code = 1038) 13.1 % 11.5-15.0 NEUTROPHILS (test code = 1008) 47.8 % LYMPHOCYTES (test code = 1010) 36.7 % MONOCYTES (test code = 1011) 13.6 % EOSINOPHILS (test code = 1012) 0.9 % BASOPHILS (test code = 1013) 0.5 % IMMATURE GRANULOCYTES (test code = 1036) 0.5 % NUCLEATED RBCS (test code = 1065) 0.0 /100 WBC'S See_Comment [Automated messa ge] The system which generated this result transmitted reference range: 0.0. The reference range was not used to interpret this result as normal/abnormal. PLATELET COUNT (test code = 1015) 292 K/UL 130-400 ABSOLUTE NEUTROPHILS (test code = 1066) 3.07 K/UL 1.50-7.50 ABSOLUTE LYMPHOCYTES (test code = 1067) 2.35 K/UL 1.00-4.00 ABSOLUTE MONOCYTES (test code = 1068) 0.87 K/UL 0.20-1.00 ABSOLUTE EOSINOPHILS (test code = 1040) 0.06 K/UL 0.00-0.50 ABSOLUTE BASOPHILS (test code = 1069) 0.03 K/UL 0.00-0.20 ABS IMMATURE GRANULOCYTES (test code = 1020) 0.03 K/UL 0.00-0.10 ABS NUCLEATED RBCS (test code = 20663) 0.00 K/UL 0.00-0.11 ALBUMIN/CREATININE RATIO, RANDOM [id number] 00:00:00* Test Item Value Reference Range Interpretation Comme nts CREATININE, URINE, CONC. (te st code = 2072) 138.8 MG/DL ALBUMIN, URINE, RANDOM (test code = 25267) 3.2 MG/DL CALC ALBUMIN/CREAT, RND (kia t code = 25189) 23 MG/G [facility]i Allen [facility]AUTO [id number] 00:00:00* Test Item Value Reference Range Interpretation Comme nts WBC (test code = 1001) 6.4 K/UL RBC (test code = 1002) 4.61 M/UL HEMOGLOBIN (test code = 1003) 14.0 G/DL HEMATOCRIT (test code = 1004) 41.5 % MCV (test code = 1005) 90.0 fL MCH (test code = 1006) 30.4 PG MCHC (test code = 1007) 33.7 G/DL RDW (test code = 1038) 13.1 % NEUTROPHILS (test code = 1008) 47.8 % LYMPHOCYTES (test code = 1010) 36.7 % MONOCYTES (test code = 1011) 13.6 % EOSINOPHILS (test code = 1012) 0.9 % BASOPHILS (test code = 1013) 0.5 % IMMATURE GRANULOCYTES (test code = 1036) 0.5 % NUCLEATED RBCS (test code = 1065) 0.0 /100WBC'S PLATELET COUNT (test code = 1015) 292 K/UL ABSOLUTE NEUTROPHILS (test c ode = 1066) 3.07 K/UL ABSOLUTE LYMPHOCYTES (test c ode = 1067) 2.35 K/UL ABSOLUTE MONOCYTES (test cod e = 1068) 0.87 K/UL ABSOLUTE EOSINOPHILS (test c ode = 1040) 0.06 K/UL ABSOLUTE BASOPHILS (test cod e = 1069) 0.03 K/UL ABS IMMATURE GRANULOCYTES (t est code = 1020) 0.03 K/UL ABS NUCLEATED RBCS (test cod e = 05996) 0.00 K/UL Fredi Allen [id number] 00:00:00* Test Item Value Reference Range Interpretation Comme nts FERRITIN (test code = 2074) 492 NG/ML Fredi Allen [id number] 00:00:00* Test Item Value Reference Range Interpretation Comme nts TRANSFERRIN (test code = 4936) 298 MG/DL Fredi Allen AustinIRON BINDING CAPACITY AND IRON AND % [id number] 00:00:00* Test Item Value Reference Range Interpretation Comme nts IRON, SERUM (test code = 2221) 70 UG/DL UNSATURATED IBC (test code = 38376) 289 UG/DL CALC TOTAL IBC (test code = 7) 359 UG/DL CALC % IRON SAT (test code = 2078) 19 % Fredi Allen AustinCOMPREHENSIVE METABOLIC [id number] 00:00:00* Test Item Value Reference Range Interpretation Comme nts GLUCOSE (test code = 2217) 147 MG/DL BUN (test code = 2208) 14 MG/DL CREATININE (test code = 2214) 1.41 MG/DL eGFR (2020 CKD-EPI) (test co de = 37282) 55 ML/MIN/1.73 CALC BUN/CREAT (test code = 2235) 10 RATIO SODIUM (test code = 2231) 139 MEQ/L POTASSIUM (test code = 2228) 5.0 MEQ/L CHLORIDE (test code = 2215) 104 MEQ/L CARBON DIOXIDE (test code = 2206) 23 MEQ/L CALCIUM (test code = 2209) 9.7 MG/DL PROTEIN, TOTAL (test code = 2229) 7.8 G/DL ALBUMIN (test code = 2201) 4.2 G/DL CALC GLOBULIN (test code = 2240) 3.6 G/DL CALC A/G RATIO (test code = 2234) 1.2 RATIO BILIRUBIN, TOTAL (test code = 2207) 0.3 MG/DL ALKALINE PHOSPHATASE (test code = 2204) 65 U/L AST (test code = 2218) 67 U/L ALT (test code = 2219) 124 U/L Fredi MartelHEMOGLOBIN [id number] 00:00:00* Test Item Value Reference Range Interpretation Comme [place] HEMOGLOBIN A1c (test code = 48340) 6.2 % Fredi MartelLIPID [id number] 00:00:00* Test Item Value Reference Range Interpretation Comme nts CHOLESTEROL (test code = 2210) 156 MG/DL TRIGLYCERIDES (test code = 2232) 87 MG/DL HDL CHOLESTEROL (test code = 2220) 47 MG/DL CALC LDL CHOL (test code = 2237) 91 MG/DL RISK RATIO LDL/HDL (test cod e = 2238) 1.94 RATIO Fredi MartelALBUMIN/CREATININE RATIO, RANDOM [id number] 00:00:00* Test Item Value Reference Range Interpretation Comme [facility] CREATININE, URINE, CONC. (te st code = 2072) 138.8 MG/DL ALBUMIN, URINE, RANDOM (test code = 43450) 3.2 MG/DL CALC ALBUMIN/CREAT, RND (kia t code = 70619) 23 MG/G Fredi MartelCBC W/AUTO [id number] 00:00:00* Test Item Value Reference Range Interpretation Comme nts WBC (test code = 1001) 6.4 K/UL RBC (test code = 1002) 4.61 M/UL HEMOGLOBIN (test code = 1003) 14.0 G/DL HEMATOCRIT (test code = 1004) 41.5 % MCV (test code = 1005) 90.0 fL MCH (test code = 1006) 30.4 PG MCHC (test code = 1007) 33.7 G/DL RDW (test code = 1038) 13.1 % NEUTROPHILS (test code = 1008) 47.8 % LYMPHOCYTES (test code = 1010) 36.7 % MONOCYTES (test code = 1011) 13.6 % EOSINOPHILS (test code = 1012) 0.9 % BASOPHILS (test code = 1013) 0.5 % IMMATURE GRANULOCYTES (test code = 1036) 0.5 % NUCLEATED RBCS (test code = 1065) 0.0 /100WBC'S PLATELET COUNT (test code = 1015) 292 K/UL ABSOLUTE NEUTROPHILS (test c ode = 1066) 3.07 K/UL ABSOLUTE LYMPHOCYTES (test c ode = 1067) 2.35 K/UL ABSOLUTE MONOCYTES (test cod e = 1068) 0.87 K/UL ABSOLUTE EOSINOPHILS (test c ode = 1040) 0.06 K/UL ABSOLUTE BASOPHILS (test cod e = 1069) 0.03 K/UL ABS IMMATURE GRANULOCYTES (t est code = 1020) 0.03 K/UL ABS NUCLEATED RBCS (test cod e = 79195) 0.00 K/UL Fredi Allen [id number] 00:00:00* Test Item Value Reference Range Interpretation Comme nts FERRITIN (test code = 2074) 492 NG/ML Fredi F [id number] 00:00:00* Test Item Value Reference Range Interpretation Comme nts TRANSFERRIN (test code = 4936) 298 MG/DL Fredi F AustinIRON BINDING CAPACITY AND IRON AND % [id number] 00:00:00* Test Item Value Reference Range Interpretation Comme nts IRON, SERUM (test code = 2221) 70 UG/DL UNSATURATED IBC (test code = ) 289 UG/DL CALC TOTAL IBC (test code = 7) 359 UG/DL CALC % IRON SAT (test code = 9) 19 % Fredi F AustinCOMPREHENSIVE METABOLIC [id number] 00:00:00* Test Item Value Reference Range Interpretation Comme nts GLUCOSE (test code = 2217) 147 MG/DL BUN (test code = 2208) 14 MG/DL CREATININE (test code = 2214) 1.41 MG/DL eGFR (2020 CKD-EPI) (test co de = 18327) 55 ML/MIN/1.73 CALC BUN/CREAT (test code = 2235) 10 RATIO SODIUM (test code = 2231) 139 MEQ/L POTASSIUM (test code = 2228) 5.0 MEQ/L CHLORIDE (test code = 2215) 104 MEQ/L CARBON DIOXIDE (test code = 2206) 23 MEQ/L CALCIUM (test code = 2209) 9.7 MG/DL PROTEIN, TOTAL (test code = 2229) 7.8 G/DL ALBUMIN (test code = 2201) 4.2 G/DL CALC GLOBULIN (test code = 2240) 3.6 G/DL CALC A/G RATIO (test code = 2234) 1.2 RATIO BILIRUBIN, TOTAL (test code = 2207) 0.3 MG/DL ALKALINE PHOSPHATASE (test code = 2204) 65 U/L AST (test code = 2218) 67 U/L ALT (test code = 2219) 124 U/L Fredi MartelHEMOGLOBIN [id number] 00:00:00* Test Item Value Reference Range Interpretation Comme [facility] HEMOGLOBIN A1c (test code = 57605) 6.2 % Fredi MartelLIPID [id number] 00:00:00* Test Item Value Reference Range Interpretation Comme nts CHOLESTEROL (test code = 2210) 156 MG/DL TRIGLYCERIDES (test code = 2232) 87 MG/DL HDL CHOLESTEROL (test code = 2220) 47 MG/DL CALC LDL CHOL (test code = 2237) 91 MG/DL RISK RATIO LDL/HDL (test cod e = 2238) 1.94 RATIO Fredi MartelALBUMIN/CREATININE RATIO, RANDOM [id number] 00:00:00* Test Item Value Reference Range Interpretation Comme nts CREATININE, URINE, CONC. (te st code = 2072) 138.8 MG/DL ALBUMIN, URINE, RANDOM (test code = 54244) 3.2 MG/DL CALC ALBUMIN/CREAT, RND (kia t code = 09522) 23 MG/G Fredi MartelCBC W/AUTO [id number] 00:00:00* Test Item Value Reference Range Interpretation Comme nts WBC (test code = 1001) 6.4 K/UL RBC (test code = 1002) 4.61 M/UL HEMOGLOBIN (test code = 1003) 14.0 G/DL HEMATOCRIT (test code = 1004) 41.5 % MCV (test code = 1005) 90.0 fL MCH (test code = 1006) 30.4 PG MCHC (test code = 1007) 33.7 G/DL RDW (test code = 1038) 13.1 % NEUTROPHILS (test code = 1008) 47.8 % LYMPHOCYTES (test code = 1010) 36.7 % MONOCYTES (test code = 1011) 13.6 % EOSINOPHILS (test code = 1012) 0.9 % BASOPHILS (test code = 1013) 0.5 % IMMATURE GRANULOCYTES (test code = 1036) 0.5 % NUCLEATED RBCS (test code = 1065) 0.0 /100WBC'S PLATELET COUNT (test code = 1015) 292 K/UL ABSOLUTE NEUTROPHILS (test c ode = 1066) 3.07 K/UL ABSOLUTE LYMPHOCYTES (test c ode = 1067) 2.35 K/UL ABSOLUTE MONOCYTES (test cod e = 1068) 0.87 K/UL ABSOLUTE EOSINOPHILS (test c ode = 1040) 0.06 K/UL ABSOLUTE BASOPHILS (test cod e = 1069) 0.03 K/UL ABS IMMATURE GRANULOCYTES (t est code = 1020) 0.03 K/UL ABS NUCLEATED RBCS (test cod e = 53593) 0.00 K/UL Fredi Allen [id number] 00:00:00* Test Item Value Reference Range Interpretation Comme nts FERRITIN (test code = 2074) 492 NG/ML Fredi Allen [id number] 00:00:00* Test Item Value Reference Range Interpretation Comme nts TRANSFERRIN (test code = 4936) 298 MG/DL Fredi Allen AustinIRON BINDING CAPACITY AND IRON AND % [id number] 00:00:00* Test Item Value Reference Range Interpretation Comme nts IRON, SERUM (test code = 2221) 70 UG/DL UNSATURATED IBC (test code = 67650) 289 UG/DL CALC TOTAL IBC (test code = 7) 359 UG/DL CALC % IRON SAT (test code = 2078) 19 % Fredi Allen DelonteCOMPREHENSIVE METABOLIC [id number] 00:00:00* Test Item Value Reference Range Interpretation Comme nts GLUCOSE (test code = 2217) 147 MG/DL BUN (test code = 2208) 14 MG/DL CREATININE (test code = 2214) 1.41 MG/DL eGFR (2020 CKD-EPI) (test co de = 31319) 55 ML/MIN/1.73 CALC BUN/CREAT (test code = 2235) 10 RATIO SODIUM (test code = 2231) 139 MEQ/L POTASSIUM (test code = 2228) 5.0 MEQ/L CHLORIDE (test code = 2215) 104 MEQ/L CARBON DIOXIDE (test code = 2206) 23 MEQ/L CALCIUM (test code = 2209) 9.7 MG/DL PROTEIN, TOTAL (test code = 2229) 7.8 G/DL ALBUMIN (test code = 2201) 4.2 G/DL CALC GLOBULIN (test code = 2240) 3.6 G/DL CALC A/G RATIO (test code = 2234) 1.2 RATIO BILIRUBIN, TOTAL (test code = 2207) 0.3 MG/DL ALKALINE PHOSPHATASE (test code = 220) 65 U/L AST (test code = 2218) 67 U/L ALT (test code = 2219) 124 U/L Fredi MartelHEMOGLOBIN [id number] 00:00:00* Test Item Value Reference Range Interpretation Comme nts HEMOGLOBIN A1c (test code = 20434) 6.2 % Fredi MartelLIPID [id number] 00:00:00* Test Item Value Reference Range Interpretation Comme nts CHOLESTEROL (test code = 2210) 156 MG/DL TRIGLYCERIDES (test code = 2232) 87 MG/DL HDL CHOLESTEROL (test code = 2220) 47 MG/DL CALC LDL CHOL (test code = 2237) 91 MG/DL RISK RATIO LDL/HDL (test cod e = 2238) 1.94 RATIO Fredi MartelALBUMIN/CREATININE RATIO, RANDOM [id number] 00:00:00* Test Item Value Reference Range Interpretation Comme nts CREATININE, URINE, CONC. (te st code = 2072) 138.8 MG/DL ALBUMIN, URINE, RANDOM (test code = 33814) 3.2 MG/DL CALC ALBUMIN/CREAT, RND (kia t code = 57747) 23 MG/G Fredi MartelCBC W/AUTO [id number] 00:00:00* Test Item Value Reference Range Interpretation Comme nts WBC (test code = 1001) 6.4 K/UL RBC (test code = 1002) 4.61 M/UL HEMOGLOBIN (test code = 1003) 14.0 G/DL HEMATOCRIT (test code = 1004) 41.5 % MCV (test code = 1005) 90.0 fL MCH (test code = 1006) 30.4 PG MCHC (test code = 1007) 33.7 G/DL RDW (test code = 1038) 13.1 % NEUTROPHILS (test code = 1008) 47.8 % LYMPHOCYTES (test code = 1010) 36.7 % MONOCYTES (test code = 1011) 13.6 % EOSINOPHILS (test code = 1012) 0.9 % BASOPHILS (test code = 1013) 0.5 % IMMATURE GRANULOCYTES (test code = 1036) 0.5 % NUCLEATED RBCS (test code = 1065) 0.0 /100WBC'S PLATELET COUNT (test code = 1015) 292 K/UL ABSOLUTE NEUTROPHILS (test c ode = 1066) 3.07 K/UL ABSOLUTE LYMPHOCYTES (test c ode = 1067) 2.35 K/UL ABSOLUTE MONOCYTES (test cod e = 1068) 0.87 K/UL ABSOLUTE EOSINOPHILS (test c ode = 1040) 0.06 K/UL ABSOLUTE BASOPHILS (test cod e = 1069) 0.03 K/UL ABS IMMATURE GRANULOCYTES (t est code = 1020) 0.03 K/UL ABS NUCLEATED RBCS (test cod e = 69378) 0.00 K/UL Fredi [id number] 00:00:00* Test Item Value Reference Range Interpretation Comme nts FERRITIN (test code = 2075) 492 NG/ML Fredi Allen [id number] 00:00:00* Test Item Value Reference Range Interpretation Comme nts TRANSFERRIN (test code = 4936) 298 MG/DL Fredi Allen AustinIRON BINDING CAPACITY AND IRON AND % [id number] 00:00:00* Test Item Value Reference Range Interpretation Comme nts IRON, SERUM (test code = 2222) 70 UG/DL UNSATURATED IBC (test code = 99199) 289 UG/DL CALC TOTAL IBC (test code = 2076) 359 UG/DL CALC % IRON SAT (test code = 2078) 19 % Fredi Allen DelonteCOMPREHENSIVE METABOLIC [id number] 00:00:00* Test Item Value Reference Range Interpretation Comme nts GLUCOSE (test code = 2217) 147 MG/DL BUN (test code = 2208) 14 MG/DL CREATININE (test code = 2214) 1.41 MG/DL eGFR (2020 CKD-EPI) (test co de = 19052) 55 ML/MIN/1.73 CALC BUN/CREAT (test code = 2235) 10 RATIO SODIUM (test code = 2231) 139 MEQ/L POTASSIUM (test code = 2228) 5.0 MEQ/L CHLORIDE (test code = 2215) 104 MEQ/L CARBON DIOXIDE (test code = 2206) 23 MEQ/L CALCIUM (test code = 2209) 9.7 MG/DL PROTEIN, TOTAL (test code = 222) 7.8 G/DL ALBUMIN (test code = 220) 4.2 G/DL CALC GLOBULIN (test code = 2240) 3.6 G/DL CALC A/G RATIO (test code = 2234) 1.2 RATIO BILIRUBIN, TOTAL (test code = 2207) 0.3 MG/DL ALKALINE PHOSPHATASE (test code = 2204) 65 U/L AST (test code = 2218) 67 U/L ALT (test code = 2219) 124 U/L Fredi MartelHEMOGLOBIN [id number] 00:00:00* Test Item Value Reference Range Interpretation Comme nts HEMOGLOBIN A1c (test code = 27838) 6.2 % Fredi MartelLIPID [id number] 00:00:00* Test Item Value Reference Range Interpretation Comme nts CHOLESTEROL (test code = 2210) 156 MG/DL TRIGLYCERIDES (test code = 2232) 87 MG/DL HDL CHOLESTEROL (test code = 2220) 47 MG/DL CALC LDL CHOL (test code = 2237) 91 MG/DL RISK RATIO LDL/HDL (test cod e = 2238) 1.94 RATIO Fredi MartelALBUMIN/CREATININE RATIO, RANDOM [id number] 00:00:00* Test Item Value Reference Range Interpretation Comme nts CREATININE, URINE, CONC. (te st code = 2072) 138.8 MG/DL ALBUMIN, URINE, RANDOM (test code = 36246) 3.2 MG/DL CALC ALBUMIN/CREAT, RND (kia t code = 25164) 23 MG/G Fredi Allen AustinCBC W/AUTO [id number] 00:00:00* Test Item Value Reference Range Interpretation Comme nts WBC (test code = 1001) 6.4 K/UL RBC (test code = 1002) 4.61 M/UL HEMOGLOBIN (test code = 1003) 14.0 G/DL HEMATOCRIT (test code = 1004) 41.5 % MCV (test code = 1005) 90.0 fL MCH (test code = 1006) 30.4 PG MCHC (test code = 1007) 33.7 G/DL RDW (test code = 1038) 13.1 % NEUTROPHILS (test code = 1008) 47.8 % LYMPHOCYTES (test code = 1010) 36.7 % MONOCYTES (test code = 1011) 13.6 % EOSINOPHILS (test code = 1012) 0.9 % BASOPHILS (test code = 1013) 0.5 % IMMATURE GRANULOCYTES (test code = 1036) 0.5 % NUCLEATED RBCS (test code = 1065) 0.0 /100WBC'S PLATELET COUNT (test code = 1015) 292 K/UL ABSOLUTE NEUTROPHILS (test c ode = 1066) 3.07 K/UL ABSOLUTE LYMPHOCYTES (test c ode = 1067) 2.35 K/UL ABSOLUTE MONOCYTES (test cod e = 1068) 0.87 K/UL ABSOLUTE EOSINOPHILS (test c ode = 1040) 0.06 K/UL ABSOLUTE BASOPHILS (test cod e = 1069) 0.03 K/UL ABS IMMATURE GRANULOCYTES (t est code = 1020) 0.03 K/UL ABS NUCLEATED RBCS (test cod e = 69340) 0.00 K/UL Fredi Allen [id number] 00:00:00* Test Item Value Reference Range Interpretation Comme nts FERRITIN (test code = 2075) 492 NG/ML Fredi Allen [id number] 00:00:00* Test Item Value Reference Range Interpretation Comme nts TRANSFERRIN (test code = 4936) 298 MG/DL Fredi MartelIRON BINDING CAPACITY AND IRON AND % [id number] 00:00:00* Test Item Value Reference Range Interpretation Comme nts IRON, SERUM (test code = 2222) 70 UG/DL UNSATURATED IBC (test code = 79300) 289 UG/DL CALC TOTAL IBC (test code = 2076) 359 UG/DL CALC % IRON SAT (test code = 2078) 19 % Fredi MartelCOMPREHENSIVE METABOLIC [id number] 00:00:00* Test Item Value Reference Range Interpretation Comme nts GLUCOSE (test code = 2217) 147 MG/DL BUN (test code = 2208) 14 MG/DL CREATININE (test code = 2214) 1.41 MG/DL eGFR (2020 CKD-EPI) (test co de = ) 55 ML/MIN/1.73 CALC BUN/CREAT (test code = 2235) 10 RATIO SODIUM (test code = 2231) 139 MEQ/L POTASSIUM (test code = 2228) 5.0 MEQ/L CHLORIDE (test code = 2215) 104 MEQ/L CARBON DIOXIDE (test code = 2206) 23 MEQ/L CALCIUM (test code = 2209) 9.7 MG/DL PROTEIN, TOTAL (test code = 2229) 7.8 G/DL ALBUMIN (test code = 2201) 4.2 G/DL CALC GLOBULIN (test code = 2240) 3.6 G/DL CALC A/G RATIO (test code = 2234) 1.2 RATIO BILIRUBIN, TOTAL (test code = 2207) 0.3 MG/DL ALKALINE PHOSPHATASE (test code = 2204) 65 U/L AST (test code = 2218) 67 U/L ALT (test code = 2219) 124 U/L Fredi MartelHEMOGLOBIN [id number] 00:00:00* Test Item Value Reference Range Interpretation Comme nts HEMOGLOBIN A1c (test code = 58886) 6.2 % Fredi MartelLIPID [id number] 00:00:00* Test Item Value Reference Range Interpretation Comme nts CHOLESTEROL (test code = 2210) 156 MG/DL TRIGLYCERIDES (test code = 2232) 87 MG/DL HDL CHOLESTEROL (test code = 2220) 47 MG/DL CALC LDL CHOL (test code = 2237) 91 MG/DL RISK RATIO LDL/HDL (test cod e = 2238) 1.94 RATIO Fredi MartelALBUMIN/CREATININE RATIO, RANDOM [id number] 00:00:00* Test Item Value Reference Range Interpretation Comme nts CREATININE, URINE, CONC. (te st code = 2071) 138.8 MG/DL ALBUMIN, URINE, RANDOM (test code = 01909) 3.2 MG/DL CALC ALBUMIN/CREAT, RND (kia t code = 58244) 23 MG/G Fredi MartelCBC W/AUTO [id number] 00:00:00* Test Item Value Reference Range Interpretation Comme nts WBC (test code = 1001) 6.4 K/UL RBC (test code = 1002) 4.61 M/UL HEMOGLOBIN (test code = 1003) 14.0 G/DL HEMATOCRIT (test code = 1004) 41.5 % MCV (test code = 1005) 90.0 fL MCH (test code = 1006) 30.4 PG MCHC (test code = 1007) 33.7 G/DL RDW (test code = 1038) 13.1 % NEUTROPHILS (test code = 1008) 47.8 % LYMPHOCYTES (test code = 1010) 36.7 % MONOCYTES (test code = 1011) 13.6 % EOSINOPHILS (test code = 1012) 0.9 % BASOPHILS (test code = 1013) 0.5 % IMMATURE GRANULOCYTES (test code = 1036) 0.5 % NUCLEATED RBCS (test code = 1065) 0.0 /100WBC'S PLATELET COUNT (test code = 1015) 292 K/UL ABSOLUTE NEUTROPHILS (test c ode = 1066) 3.07 K/UL ABSOLUTE LYMPHOCYTES (test c ode = 1067) 2.35 K/UL ABSOLUTE MONOCYTES (test cod e = 1068) 0.87 K/UL ABSOLUTE EOSINOPHILS (test c ode = 1040) 0.06 K/UL ABSOLUTE BASOPHILS (test cod e = 1069) 0.03 K/UL ABS IMMATURE GRANULOCYTES (t est code = 1020) 0.03 K/UL ABS NUCLEATED RBCS (test cod e = 78583) 0.00 K/UL Fredi [id number] 00:00:00* Test Item Value Reference Range Interpretation Comme nts FERRITIN (test code = 2075) 492 NG/ML Fredi [id number] 00:00:00* Test Item Value Reference Range Interpretation Comme nts TRANSFERRIN (test code = 4936) 298 MG/DL Fredi MartelIRON BINDING CAPACITY AND IRON AND % [id number] 00:00:00* Test Item Value Reference Range Interpretation Comme nts IRON, SERUM (test code = 2221) 70 UG/DL UNSATURATED IBC (test code = ) 289 UG/DL CALC TOTAL IBC (test code = 2076) 359 UG/DL CALC % IRON SAT (test code = 2078) 19 % Fredi MartelCOMPREHENSIVE METABOLIC [id number] 00:00:00* Test Item Value Reference Range Interpretation Comme nts GLUCOSE (test code = 2216) 147 MG/DL BUN (test code = 2207) 14 MG/DL CREATININE (test code = 2214) 1.41 MG/DL eGFR (2020 CKD-EPI) (test co de = 54127) 55 ML/MIN/1.73 CALC BUN/CREAT (test code = 5) 10 RATIO SODIUM (test code = 223) 139 MEQ/L POTASSIUM (test code = 2228) 5.0 MEQ/L CHLORIDE (test code = 2215) 104 MEQ/L CARBON DIOXIDE (test code = 6) 23 MEQ/L CALCIUM (test code = 9) 9.7 MG/DL PROTEIN, TOTAL (test code = 9) 7.8 G/DL ALBUMIN (test code = 2201) 4.2 G/DL CALC GLOBULIN (test code = 2240) 3.6 G/DL CALC A/G RATIO (test code = 2234) 1.2 RATIO BILIRUBIN, TOTAL (test code = 7) 0.3 MG/DL ALKALINE PHOSPHATASE (test code = 4) 65 U/L AST (test code = 2218) 67 U/L ALT (test code = 2219) 124 U/L Fredi MartelHEMOGLOBIN [id number] 00:00:00* Test Item Value Reference Range Interpretation Comme nts HEMOGLOBIN A1c (test code = 00338) 6.2 % Fredi MartelLIPID [id number] 00:00:00* Test Item Value Reference Range Interpretation Comme nts CHOLESTEROL (test code = 0) 156 MG/DL TRIGLYCERIDES (test code = 2) 87 MG/DL HDL CHOLESTEROL (test code = 0) 47 MG/DL CALC LDL CHOL (test code = 2237) 91 MG/DL RISK RATIO LDL/HDL (test cod e = 2238) 1.94 RATIO Fredi MartelALBUMIN/CREATININE RATIO, RANDOM [id number] 00:00:00* Test Item Value Reference Range Interpretation Comme nts CREATININE, URINE, CONC. (te st code = 2072) 138.8 MG/DL ALBUMIN, URINE, RANDOM (test code = 53362) 3.2 MG/DL CALC ALBUMIN/CREAT, RND (kia t code = 52655) 23 MG/G Fredi MartelCBC W/AUTO [id number] 00:00:00* Test Item Value Reference Range Interpretation Comme nts WBC (test code = 1001) 6.4 K/UL RBC (test code = 1002) 4.61 M/UL HEMOGLOBIN (test code = 1003) 14.0 G/DL HEMATOCRIT (test code = 1004) 41.5 % MCV (test code = 1005) 90.0 fL MCH (test code = 1006) 30.4 PG MCHC (test code = 1007) 33.7 G/DL RDW (test code = 1038) 13.1 % NEUTROPHILS (test code = 1008) 47.8 % LYMPHOCYTES (test code = 1010) 36.7 % MONOCYTES (test code = 1011) 13.6 % EOSINOPHILS (test code = 1012) 0.9 % BASOPHILS (test code = 1013) 0.5 % IMMATURE GRANULOCYTES (test code = 1036) 0.5 % NUCLEATED RBCS (test code = 1065) 0.0 /100WBC'S PLATELET COUNT (test code = 1015) 292 K/UL ABSOLUTE NEUTROPHILS (test c ode = 1066) 3.07 K/UL ABSOLUTE LYMPHOCYTES (test c ode = 1067) 2.35 K/UL ABSOLUTE MONOCYTES (test cod e = 1068) 0.87 K/UL ABSOLUTE EOSINOPHILS (test c ode = 1040) 0.06 K/UL ABSOLUTE BASOPHILS (test cod e = 1069) 0.03 K/UL ABS IMMATURE GRANULOCYTES (t est code = 1020) 0.03 K/UL ABS NUCLEATED RBCS (test cod e = 58501) 0.00 K/UL Fredi [id number] 00:00:00* Test Item Value Reference Range Interpretation Comme nts FERRITIN (test code = 2075) 492 NG/ML Fredi [id number] 00:00:00* Test Item Value Reference Range Interpretation Comme nts TRANSFERRIN (test code = 4936) 298 MG/DL Fredi MartelIRON BINDING CAPACITY AND IRON AND % [id number] 00:00:00* Test Item Value Reference Range Interpretation Comme nts IRON, SERUM (test code = 2221) 70 UG/DL UNSATURATED IBC (test code = ) 289 UG/DL CALC TOTAL IBC (test code = 2076) 359 UG/DL CALC % IRON SAT (test code = 2078) 19 % Fredi MartelCOMPREHENSIVE METABOLIC [id number] 00:00:00* Test Item Value Reference Range Interpretation Comme nts GLUCOSE (test code = 2216) 147 MG/DL BUN (test code = 2207) 14 MG/DL CREATININE (test code = 4) 1.41 MG/DL eGFR (2020 CKD-EPI) (test co de = ) 55 ML/MIN/1.73 CALC BUN/CREAT (test code = 2235) 10 RATIO SODIUM (test code = 223) 139 MEQ/L POTASSIUM (test code = 2228) 5.0 MEQ/L CHLORIDE (test code = 2215) 104 MEQ/L CARBON DIOXIDE (test code = 2206) 23 MEQ/L CALCIUM (test code = 2209) 9.7 MG/DL PROTEIN, TOTAL (test code = 2229) 7.8 G/DL ALBUMIN (test code = 2201) 4.2 G/DL CALC GLOBULIN (test code = 2240) 3.6 G/DL CALC A/G RATIO (test code = 2234) 1.2 RATIO BILIRUBIN, TOTAL (test code = 2207) 0.3 MG/DL ALKALINE PHOSPHATASE (test code = 2204) 65 U/L AST (test code = 2218) 67 U/L ALT (test code = 2219) 124 U/L Fredi MartelHEMOGLOBIN [id number] 00:00:00* Test Item Value Reference Range Interpretation Comme nts HEMOGLOBIN A1c (test code = 96044) 6.2 % Fredi MartelLIPID [id number] 00:00:00* Test Item Value Reference Range Interpretation Comme nts CHOLESTEROL (test code = 2210) 156 MG/DL TRIGLYCERIDES (test code = 2232) 87 MG/DL HDL CHOLESTEROL (test code = 2220) 47 MG/DL CALC LDL CHOL (test code = 2237) 91 MG/DL RISK RATIO LDL/HDL (test cod e = 2238) 1.94 RATIO Fredi MartelALBUMIN/CREATININE RATIO, RANDOM [id number] 00:00:00* Test Item Value Reference Range Interpretation Comme nts CREATININE, URINE, CONC. (te st code = 2072) 138.8 MG/DL ALBUMIN, URINE, RANDOM (test code = 98873) 3.2 MG/DL CALC ALBUMIN/CREAT, RND (kia t code = 66355) 23 MG/G Fredi MartelCBC W/AUTO [id number] 00:00:00* Test Item Value Reference Range Interpretation Comme nts WBC (test code = 1001) 6.4 K/UL RBC (test code = 1002) 4.61 M/UL HEMOGLOBIN (test code = 1003) 14.0 G/DL HEMATOCRIT (test code = 1004) 41.5 % MCV (test code = 1005) 90.0 fL MCH (test code = 1006) 30.4 PG MCHC (test code = 1007) 33.7 G/DL RDW (test code = 1038) 13.1 % NEUTROPHILS (test code = 1008) 47.8 % LYMPHOCYTES (test code = 1010) 36.7 % MONOCYTES (test code = 1011) 13.6 % EOSINOPHILS (test code = 1012) 0.9 % BASOPHILS (test code = 1013) 0.5 % IMMATURE GRANULOCYTES (test code = 1036) 0.5 % NUCLEATED RBCS (test code = 1065) 0.0 /100WBC'S PLATELET COUNT (test code = 1015) 292 K/UL ABSOLUTE NEUTROPHILS (test c ode = 1066) 3.07 K/UL ABSOLUTE LYMPHOCYTES (test c ode = 1067) 2.35 K/UL ABSOLUTE MONOCYTES (test cod e = 1068) 0.87 K/UL ABSOLUTE EOSINOPHILS (test c ode = 1040) 0.06 K/UL ABSOLUTE BASOPHILS (test cod e = 1069) 0.03 K/UL ABS IMMATURE GRANULOCYTES (t est code = 1020) 0.03 K/UL ABS NUCLEATED RBCS (test cod e = 03524) 0.00 K/UL Fredi [id number] 00:00:00* Test Item Value Reference Range Interpretation Comme nts FERRITIN (test code = 2074) 492 NG/ML Fredi [id number] 00:00:00* Test Item Value Reference Range Interpretation Comme [place] TRANSFERRIN (test code = 4936) 298 MG/DL Fredi MartelIRON BINDING CAPACITY AND IRON AND % [id number] 00:00:00* Test Item Value Reference Range Interpretation Comme nts IRON, SERUM (test code = 2221) 70 UG/DL UNSATURATED IBC (test code = 65947) 289 UG/DL CALC TOTAL IBC (test code = 2076) 359 UG/DL CALC % IRON SAT (test code = 2078) 19 % Fredi MartelCOMPREHENSIVE METABOLIC [id number] 00:00:00* Test Item Value Reference Range Interpretation Comme nts GLUCOSE (test code = 2217) 147 MG/DL BUN (test code = 2208) 14 MG/DL CREATININE (test code = 2214) 1.41 MG/DL eGFR (2020 CKD-EPI) (test co de = 56366) 55 ML/MIN/1.73 CALC BUN/CREAT (test code = 2235) 10 RATIO SODIUM (test code = 2231) 139 MEQ/L POTASSIUM (test code = 2228) 5.0 MEQ/L CHLORIDE (test code = 2215) 104 MEQ/L CARBON DIOXIDE (test code = 2206) 23 MEQ/L CALCIUM (test code = 2209) 9.7 MG/DL PROTEIN, TOTAL (test code = 2229) 7.8 G/DL ALBUMIN (test code = 2201) 4.2 G/DL CALC GLOBULIN (test code = 2240) 3.6 G/DL CALC A/G RATIO (test code = 2234) 1.2 RATIO BILIRUBIN, TOTAL (test code = 2207) 0.3 MG/DL ALKALINE PHOSPHATASE (test code = 2204) 65 U/L AST (test code = 2218) 67 U/L ALT (test code = 2219) 124 U/L Fredi MartelHEMOGLOBIN [id number] 00:00:00* Test Item Value Reference Range Interpretation Comme [place] HEMOGLOBIN A1c (test code = 33537) 6.2 % Fredi MartelLIPID [id number] 00:00:00* Test Item Value Reference Range Interpretation Comme nts CHOLESTEROL (test code = 2210) 156 MG/DL TRIGLYCERIDES (test code = 2232) 87 MG/DL HDL CHOLESTEROL (test code = 2220) 47 MG/DL CALC LDL CHOL (test code = 2237) 91 MG/DL RISK RATIO LDL/HDL (test cod e = 2238) 1.94 RATIO Fredi MartelALBUMIN/CREATININE RATIO, RANDOM [id number] 00:00:00* Test Item Value Reference Range Interpretation Comme nts CREATININE, URINE, CONC. (te st code = 2072) 138.8 MG/DL ALBUMIN, URINE, RANDOM (test code = 69481) 3.2 MG/DL CALC ALBUMIN/CREAT, RND (kia t code = 60354) 23 MG/G Fredi MartelCBC W/AUTO [id number] 00:00:00* Test Item Value Reference Range Interpretation Comme nts WBC (test code = 1001) 6.4 K/UL RBC (test code = 1002) 4.61 M/UL HEMOGLOBIN (test code = 1003) 14.0 G/DL HEMATOCRIT (test code = 1004) 41.5 % MCV (test code = 1005) 90.0 fL MCH (test code = 1006) 30.4 PG MCHC (test code = 1007) 33.7 G/DL RDW (test code = 1038) 13.1 % NEUTROPHILS (test code = 1008) 47.8 % LYMPHOCYTES (test code = 1010) 36.7 % MONOCYTES (test code = 1011) 13.6 % EOSINOPHILS (test code = 1012) 0.9 % BASOPHILS (test code = 1013) 0.5 % IMMATURE GRANULOCYTES (test code = 1036) 0.5 % NUCLEATED RBCS (test code = 1065) 0.0 /100WBC'S PLATELET COUNT (test code = 1015) 292 K/UL ABSOLUTE NEUTROPHILS (test c ode = 1066) 3.07 K/UL ABSOLUTE LYMPHOCYTES (test c ode = 1067) 2.35 K/UL ABSOLUTE MONOCYTES (test cod e = 1068) 0.87 K/UL ABSOLUTE EOSINOPHILS (test c ode = 1040) 0.06 K/UL ABSOLUTE BASOPHILS (test cod e = 1069) 0.03 K/UL ABS IMMATURE GRANULOCYTES (t est code = 1020) 0.03 K/UL ABS NUCLEATED RBCS (test cod e = 69836) 0.00 K/UL Fredi [id number] 00:00:00* Test Item Value Reference Range Interpretation Comme nts FERRITIN (test code = 2074) 492 NG/ML Fredi [id number] 00:00:00* Test Item Value Reference Range Interpretation Comme nts TRANSFERRIN (test code = 4936) 298 MG/DL Fredi MartelIRON BINDING CAPACITY AND IRON AND % [id number] 00:00:00* Test Item Value Reference Range Interpretation Comme nts IRON, SERUM (test code = 2221) 70 UG/DL UNSATURATED IBC (test code = 74222) 289 UG/DL CALC TOTAL IBC (test code = 2076) 359 UG/DL CALC % IRON SAT (test code = 2078) 19 % Fredi MartelCOMPREHENSIVE METABOLIC [id number] 00:00:00* Test Item Value Reference Range Interpretation Comme nts GLUCOSE (test code = 2216) 147 MG/DL BUN (test code = 8) 14 MG/DL CREATININE (test code = 2214) 1.41 MG/DL eGFR (2020 CKD-EPI) (test co de = 78352) 55 ML/MIN/1.73 CALC BUN/CREAT (test code = 2235) 10 RATIO SODIUM (test code = 2231) 139 MEQ/L POTASSIUM (test code = 2228) 5.0 MEQ/L CHLORIDE (test code = 2215) 104 MEQ/L CARBON DIOXIDE (test code = 2206) 23 MEQ/L CALCIUM (test code = 2209) 9.7 MG/DL PROTEIN, TOTAL (test code = 2229) 7.8 G/DL ALBUMIN (test code = 2201) 4.2 G/DL CALC GLOBULIN (test code = 2240) 3.6 G/DL CALC A/G RATIO (test code = 2234) 1.2 RATIO BILIRUBIN, TOTAL (test code = 2207) 0.3 MG/DL ALKALINE PHOSPHATASE (test code = 2204) 65 U/L AST (test code = 2218) 67 U/L ALT (test code = 2219) 124 U/L Fredi MartelHEMOGLOBIN [id number] 00:00:00* Test Item Value Reference Range Interpretation Comme nts HEMOGLOBIN A1c (test code = 53282) 6.2 % Fredi MartelLIPID [id number] 00:00:00* Test Item Value Reference Range Interpretation Comme nts CHOLESTEROL (test code = 2210) 156 MG/DL TRIGLYCERIDES (test code = 2232) 87 MG/DL HDL CHOLESTEROL (test code = 2220) 47 MG/DL CALC LDL CHOL (test code = 2237) 91 MG/DL RISK RATIO LDL/HDL (test cod e = 2238) 1.94 RATIO Fredi MartelCOMPREHENSIVE METABOLIC [id number] 06:17:24* Test Item Value Reference Range Interpretation Comme nts GLUCOSE (test code = 2217) 135 MG/DL 70-99 H BUN (test code = 2208) 28 MG/DL 8-23 H CREATININE (test code = 2214) 1.49 MG/DL 0.80-1.40 H eGFR (2020 CKD-EPI) (test code = 70832) 52 ML/MIN/1.73 >60 L The NKF-ASN Taskforc e recommends use of Cystatin C to confirm eGFR inadults at risk for CKD. [facility] offers eGFR with Cystatin C-Creatinineusing the 2020 CKD-EPI eGFR_creat-cystat equation (order code 3057) toincrease the accuracy of estimated GFR. For more information, contactyour accounts payable bookkeeper or see announcement [email or web address] CALC BUN/CREAT (test code = 2234) 19 RATIO 6-28 SODIUM (test code = 223) 142 MEQ/L 133-146 POTASSIUM (test code = 2228) 4.9 MEQ/L 3.5-5.4 CHLORIDE (test code = 2215) 108 MEQ/L 95-107 H CARBON DIOXIDE (test code = 220) 24 MEQ/L 19-31 CALCIUM (test code = 2209) 9.8 MG/DL 8.5-10.5 PROTEIN, TOTAL (test code = 222) 7.6 G/DL 6.1-8.3 ALBUMIN (test code = 220) 4.5 G/DL 3.5-5.2 CALC GLOBULIN (test code = 2240) 3.1 G/DL 1.9-3.7 CALC A/G RATIO (test code = 2234) 1.5 RATIO 1.0-2.6 BILIRUBIN, TOTAL (test code = 2207) 0.3 MG/DL See_Comment [Automated me ssage] The system which generated this result transmitted reference range: <=1.2. The reference range was not used to interpret this result as normal/abnormal. ALKALINE PHOSPHATASE (test code = 2204) 63 U/L 40-123 AST (test code = 2218) 36 U/L 9-50 ALT (test code = 2219) 76 U/L 5-50 H UNLESS OTHERWISE INDICATED, ALL TESTING PERFORMED AT [facility] [address] [place] [address] BOILERMAKER LOFTSMAN: DOTTIE WOOTEN M.D. [place] NUMBER [id number] [facility] [place]. [id number] HEMOGLOBIN [id number] 03:43:40* Test Item Value Reference Range Interpretation Comme [facility] HEMOGLOBIN A1c (test code = 87198) 5.9 % 4.2-5.6 H [employer] GUIDELINES FOR HGB A1C: PREDIABETES/INCREASED RISK . . . . . . . 5.7-6.4% DIAGNOSIS OF DIABETES . . . . . . . . . >=6.5% WITH CONFIRMATION OR APPROPRIATE SYMPTOMS NOTE: ASSAY MAY BE AFFECTED BY HEMOGLOBINOPATHIES (SICKLE CELL ANEMIA, S-C DISEASE, OTHERS) OR ARTIFICIALLY LOWERED BY DECREASED RED CELL SURVIVAL (HEMOLYTIC ANEMIAS, BLOOD LOSS, ETC.). CONSIDER ALTERNATE TESTING OR LABORATORY CONSULTATION. HEMOGLOBIN [id number] 00:00:00* Test Item Value Reference Range Interpretation Comme [facility] HEMOGLOBIN A1c (test code = 84931) 5.9 % Fredi Tiffany DelonteCOMPREHENSIVE METABOLIC [id number] 00:00:00* Test Item Value Reference Range Interpretation Comme nts GLUCOSE (test code = 2217) 135 MG/DL BUN (test code = 2208) 28 MG/DL CREATININE (test code = 2214) 1.49 MG/DL eGFR (2020 CKD-EPI) (test co de = 68760) 52 ML/MIN/1.73 CALC BUN/CREAT (test code = 2235) 19 RATIO SODIUM (test code = 2231) 142 MEQ/L POTASSIUM (test code = 2228) 4.9 MEQ/L CHLORIDE (test code = 2215) 108 MEQ/L CARBON DIOXIDE (test code = 2206) 24 MEQ/L CALCIUM (test code = 2209) 9.8 MG/DL PROTEIN, TOTAL (test code = 2229) 7.6 G/DL ALBUMIN (test code = 2201) 4.5 G/DL CALC GLOBULIN (test code = 2240) 3.1 G/DL CALC A/G RATIO (test code = 2234) 1.5 RATIO BILIRUBIN, TOTAL (test code = 2207) 0.3 MG/DL ALKALINE PHOSPHATASE (test code = 2204) 63 U/L AST (test code = 2218) 36 U/L ALT (test code = 2219) 76 U/L Fredi Allen AustinHEMOGLOBIN [id number] 00:00:00* Test Item Value Reference Range Interpretation Comme nts HEMOGLOBIN A1c (test code = 33968) 5.9 % Fredi Allen LibertyCOMPREHENSIVE METABOLIC [id number] 00:00:00* Test Item Value Reference Range Interpretation Comme nts GLUCOSE (test code = 2217) 135 MG/DL BUN (test code = 2208) 28 MG/DL CREATININE (test code = 2214) 1.49 MG/DL eGFR (2020 CKD-EPI) (test co de = 37644) 52 ML/MIN/1.73 CALC BUN/CREAT (test code = 2235) 19 RATIO SODIUM (test code = 2231) 142 MEQ/L POTASSIUM (test code = 2228) 4.9 MEQ/L CHLORIDE (test code = 2215) 108 MEQ/L CARBON DIOXIDE (test code = 2206) 24 MEQ/L CALCIUM (test code = 2209) 9.8 MG/DL PROTEIN, TOTAL (test code = 2229) 7.6 G/DL ALBUMIN (test code = 2201) 4.5 G/DL CALC GLOBULIN (test code = 2240) 3.1 G/DL CALC A/G RATIO (test code = 2234) 1.5 RATIO BILIRUBIN, TOTAL (test code = 2207) 0.3 MG/DL ALKALINE PHOSPHATASE (test code = 2204) 63 U/L AST (test code = 2218) 36 U/L ALT (test code = 2219) 76 U/L Fredi Allen AustinHEMOGLOBIN [id number] 00:00:00* Test Item Value Reference Range Interpretation Comme nts HEMOGLOBIN A1c (test code = 45931) 5.9 % Fredi MartelCOMPREHENSIVE METABOLIC [id number] 00:00:00* Test Item Value Reference Range Interpretation Comme nts GLUCOSE (test code = 2217) 135 MG/DL BUN (test code = 2208) 28 MG/DL CREATININE (test code = 2214) 1.49 MG/DL eGFR (2020 CKD-EPI) (test co de = 69366) 52 ML/MIN/1.73 CALC BUN/CREAT (test code = 2235) 19 RATIO SODIUM (test code = 2231) 142 MEQ/L POTASSIUM (test code = 2228) 4.9 MEQ/L CHLORIDE (test code = 2215) 108 MEQ/L CARBON DIOXIDE (test code = 2206) 24 MEQ/L CALCIUM (test code = 2209) 9.8 MG/DL PROTEIN, TOTAL (test code = 2229) 7.6 G/DL ALBUMIN (test code = 2201) 4.5 G/DL CALC GLOBULIN (test code = 2240) 3.1 G/DL CALC A/G RATIO (test code = 2234) 1.5 RATIO BILIRUBIN, TOTAL (test code = 2207) 0.3 MG/DL ALKALINE PHOSPHATASE (test code = 2204) 63 U/L AST (test code = 2218) 36 U/L ALT (test code = 2219) 76 U/L Fredi MartelHEMOGLOBIN [id number] 00:00:00* Test Item Value Reference Range Interpretation Comme [place] HEMOGLOBIN A1c (test code = 74073) 5.9 % Fredi MartelCOMPREHENSIVE METABOLIC [id number] 00:00:00* Test Item Value Reference Range Interpretation Comme nts GLUCOSE (test code = 2217) 135 MG/DL BUN (test code = 2208) 28 MG/DL CREATININE (test code = 2214) 1.49 MG/DL eGFR (2020 CKD-EPI) (test co de = 82961) 52 ML/MIN/1.73 CALC BUN/CREAT (test code = 2235) 19 RATIO SODIUM (test code = 2231) 142 MEQ/L POTASSIUM (test code = 2228) 4.9 MEQ/L CHLORIDE (test code = 2215) 108 MEQ/L CARBON DIOXIDE (test code = 2206) 24 MEQ/L CALCIUM (test code = 2209) 9.8 MG/DL PROTEIN, TOTAL (test code = 2229) 7.6 G/DL ALBUMIN (test code = 2201) 4.5 G/DL CALC GLOBULIN (test code = 2240) 3.1 G/DL CALC A/G RATIO (test code = 2234) 1.5 RATIO BILIRUBIN, TOTAL (test code = 2207) 0.3 MG/DL ALKALINE PHOSPHATASE (test code = 2204) 63 U/L AST (test code = 2218) 36 U/L ALT (test code = 2219) 76 U/L Fredi Allen AustinHEMOGLOBIN [id number] 00:00:00* Test Item Value Reference Range Interpretation Comme nts HEMOGLOBIN A1c (test code = 90336) 5.9 % Fredi Allen AustinCOMPREHENSIVE METABOLIC [id number] 00:00:00* Test Item Value Reference Range Interpretation Comme nts GLUCOSE (test code = 2217) 135 MG/DL BUN (test code = 2208) 28 MG/DL CREATININE (test code = 2214) 1.49 MG/DL eGFR (2020 CKD-EPI) (test co de = 61045) 52 ML/MIN/1.73 CALC BUN/CREAT (test code = 2235) 19 RATIO SODIUM (test code = 2231) 142 MEQ/L POTASSIUM (test code = 2228) 4.9 MEQ/L CHLORIDE (test code = 2215) 108 MEQ/L CARBON DIOXIDE (test code = 2206) 24 MEQ/L CALCIUM (test code = 2209) 9.8 MG/DL PROTEIN, TOTAL (test code = 2229) 7.6 G/DL ALBUMIN (test code = 2201) 4.5 G/DL CALC GLOBULIN (test code = 2240) 3.1 G/DL CALC A/G RATIO (test code = 2234) 1.5 RATIO BILIRUBIN, TOTAL (test code = 2207) 0.3 MG/DL ALKALINE PHOSPHATASE (test code = 2204) 63 U/L AST (test code = 2218) 36 U/L ALT (test code = 2219) 76 U/L Fredi Allen AustinHEMOGLOBIN [id number] 00:00:00* Test Item Value Reference Range Interpretation Comme nts HEMOGLOBIN A1c (test code = 88426) 5.9 % Fredi Allen AustinCOMPREHENSIVE METABOLIC [id number] 00:00:00* Test Item Value Reference Range Interpretation Comme nts GLUCOSE (test code = 2217) 135 MG/DL BUN (test code = 2208) 28 MG/DL CREATININE (test code = 2214) 1.49 MG/DL eGFR (2020 CKD-EPI) (test co de = 98948) 52 ML/MIN/1.73 CALC BUN/CREAT (test code = 2235) 19 RATIO SODIUM (test code = 2231) 142 MEQ/L POTASSIUM (test code = 2228) 4.9 MEQ/L CHLORIDE (test code = 2215) 108 MEQ/L CARBON DIOXIDE (test code = 2206) 24 MEQ/L CALCIUM (test code = 2209) 9.8 MG/DL PROTEIN, TOTAL (test code = 2229) 7.6 G/DL ALBUMIN (test code = 2201) 4.5 G/DL CALC GLOBULIN (test code = 2240) 3.1 G/DL CALC A/G RATIO (test code = 2234) 1.5 RATIO BILIRUBIN, TOTAL (test code = 2207) 0.3 MG/DL ALKALINE PHOSPHATASE (test code = 2204) 63 U/L AST (test code = 2218) 36 U/L ALT (test code = 2219) 76 U/L Fredi MartelHEMOGLOBIN [id number] 00:00:00* Test Item Value Reference Range Interpretation Comme nts HEMOGLOBIN A1c (test code = 06032) 5.9 % Fredi MartelCOMPREHENSIVE METABOLIC [id number] 00:00:00* Test Item Value Reference Range Interpretation Comme nts GLUCOSE (test code = 7) 135 MG/DL BUN (test code = 8) 28 MG/DL CREATININE (test code = 2214) 1.49 MG/DL eGFR (2020 CKD-EPI) (test co de = 99964) 52 ML/MIN/1.73 CALC BUN/CREAT (test code = 2235) 19 RATIO SODIUM (test code = 2231) 142 MEQ/L POTASSIUM (test code = 2228) 4.9 MEQ/L CHLORIDE (test code = 2215) 108 MEQ/L CARBON DIOXIDE (test code = 2206) 24 MEQ/L CALCIUM (test code = 2209) 9.8 MG/DL PROTEIN, TOTAL (test code = 2229) 7.6 G/DL ALBUMIN (test code = 2201) 4.5 G/DL CALC GLOBULIN (test code = 2240) 3.1 G/DL CALC A/G RATIO (test code = 2234) 1.5 RATIO BILIRUBIN, TOTAL (test code = 2207) 0.3 MG/DL ALKALINE PHOSPHATASE (test code = 2204) 63 U/L AST (test code = 2218) 36 U/L ALT (test code = 2219) 76 U/L Fredi Allen AustinHEMOGLOBIN [id number] 00:00:00* Test Item Value Reference Range Interpretation Comme nts HEMOGLOBIN A1c (test code = 25572) 5.9 % Fredi Allen AustinCOMPREHENSIVE METABOLIC [id number] 00:00:00* Test Item Value Reference Range Interpretation Comme nts GLUCOSE (test code = 2217) 135 MG/DL BUN (test code = 2208) 28 MG/DL CREATININE (test code = 2214) 1.49 MG/DL eGFR (2020 CKD-EPI) (test co de = 79566) 52 ML/MIN/1.73 CALC BUN/CREAT (test code = 2235) 19 RATIO SODIUM (test code = 2231) 142 MEQ/L POTASSIUM (test code = 2228) 4.9 MEQ/L CHLORIDE (test code = 2215) 108 MEQ/L CARBON DIOXIDE (test code = 2206) 24 MEQ/L CALCIUM (test code = 2209) 9.8 MG/DL PROTEIN, TOTAL (test code = 2229) 7.6 G/DL ALBUMIN (test code = 2201) 4.5 G/DL CALC GLOBULIN (test code = 2240) 3.1 G/DL CALC A/G RATIO (test code = 2234) 1.5 RATIO BILIRUBIN, TOTAL (test code = 2207) 0.3 MG/DL ALKALINE PHOSPHATASE (test code = 2204) 63 U/L AST (test code = 2218) 36 U/L ALT (test code = 2219) 76 U/L Fredi Allen AustinHEMOGLOBIN [id number] 00:00:00* Test Item Value Reference Range Interpretation Comme nts HEMOGLOBIN A1c (test code = 07991) 5.9 % Fredi Allen AustinCOMPREHENSIVE METABOLIC [id number] 00:00:00* Test Item Value Reference Range Interpretation Comme nts GLUCOSE (test code = 2217) 135 MG/DL BUN (test code = 2208) 28 MG/DL CREATININE (test code = 2214) 1.49 MG/DL eGFR (2020 CKD-EPI) (test co de = 98386) 52 ML/MIN/1.73 CALC BUN/CREAT (test code = 2235) 19 RATIO SODIUM (test code = 2231) 142 MEQ/L POTASSIUM (test code = 2228) 4.9 MEQ/L CHLORIDE (test code = 2215) 108 MEQ/L CARBON DIOXIDE (test code = 2206) 24 MEQ/L CALCIUM (test code = 2209) 9.8 MG/DL PROTEIN, TOTAL (test code = 2229) 7.6 G/DL ALBUMIN (test code = 2201) 4.5 G/DL CALC GLOBULIN (test code = 2240) 3.1 G/DL CALC A/G RATIO (test code = 2234) 1.5 RATIO BILIRUBIN, TOTAL (test code = 2207) 0.3 MG/DL ALKALINE PHOSPHATASE (test code = 2204) 63 U/L AST (test code = 2218) 36 U/L ALT (test code = 2219) 76 U/L Fredi MartelCOMPREHENSIVE METABOLIC [id number] 10:31:25* Test Item Value Reference Range Interpretation Comme nts GLUCOSE (test code = 2217) 112 MG/DL 70-99 H BUN (test code = 2208) 27 MG/DL 8-23 H CREATININE (test code = 2214) 1.44 MG/DL 0.80-1.40 H eGFR (2020 CKD-EPI) (test code = 28415) 54 ML/MIN/1.73 >60 L The NKF-ASN Taskforce recommends use of Cystatin C to confirm eGFR inadults at risk for CKD. [facility] offers eGFR with Cystatin C-Creatinineusing the 2020 CKD-EPI eGFR_creat-cystat equation (order code 3057) toincrease the accuracy of estimated GFR. For more information, contactyour accounts payable bookkeeper or see announcement [email or web address] CALC BUN/CREAT (test code = 2234) 19 RATIO 6-28 SODIUM (test code = 2231) 143 MEQ/L 133-146 POTASSIUM (test code = 2228) 4.8 MEQ/L 3.5-5.4 CHLORIDE (test code = 2215) 108 MEQ/L 95-107 H CARBON DIOXIDE (test code = 2206) 21 MEQ/L 19-31 CALCIUM (test code = 2209) 9.7 MG/DL 8.5-10.5 PROTEIN, TOTAL (test code = 2229) 7.1 G/DL 6.1-8.3 ALBUMIN (test code = 2201) 4.5 G/DL 3.5-5.2 CALC GLOBULIN (test code = 2240) 2.6 G/DL 1.9-3.7 CALC A/G RATIO (test code = 2234) 1.7 RATIO 1.0-2.6 BILIRUBIN, TOTAL (test code = 2207) 0.2 MG/DL See_Comment [Automated me ssage] The system which generated this result transmitted reference range: <=1.2. The reference range was not used to interpret this result as normal/abnormal. ALKALINE PHOSPHATASE (test code = 2203) 55 U/L 40-123 AST (test code = 2218) 29 U/L 9-50 ALT (test code = 2219) 46 U/L 5-50 [facility] has important pathology staff changes effective 07/01/2022. New pathology staff will provide uninterrupted, excellent patient care and clinical consultation. See URL: [email or web address]. UNLESS OTHERWISE INDICATED, ALL TESTING PERFORMED AT [facility] [address] [place] [address] CLIA: [id number], CAP: [id number] COMPREHENSIVE METABOLIC [id number] 00:00:00* Test Item Value Reference Range Interpretation Comme nts GLUCOSE (test code = 2217) 112 MG/DL BUN (test code = 2208) 27 MG/DL CREATININE (test code = 2214) 1.44 MG/DL eGFR (2020 CKD-EPI) (test co de = 76912) 54 ML/MIN/1.73 CALC BUN/CREAT (test code = 2235) 19 RATIO SODIUM (test code = 2231) 143 MEQ/L POTASSIUM (test code = 2228) 4.8 MEQ/L CHLORIDE (test code = 2215) 108 MEQ/L CARBON DIOXIDE (test code = 2206) 21 MEQ/L CALCIUM (test code = 2209) 9.7 MG/DL PROTEIN, TOTAL (test code = 2229) 7.1 G/DL ALBUMIN (test code = 2201) 4.5 G/DL CALC GLOBULIN (test code = 2240) 2.6 G/DL CALC A/G RATIO (test code = 2234) 1.7 RATIO BILIRUBIN, TOTAL (test code = 2207) 0.2 MG/DL ALKALINE PHOSPHATASE (test code = 2204) 55 U/L AST (test code = 2218) 29 U/L ALT (test code = 2219) 46 U/L Fredi Allen LibertyCOMPREHENSIVE METABOLIC [id number] 00:00:00* Test Item Value Reference Range Interpretation Comme nts GLUCOSE (test code = 2217) 112 MG/DL BUN (test code = 2208) 27 MG/DL CREATININE (test code = 2214) 1.44 MG/DL eGFR (2020 CKD-EPI) (test co de = 64298) 54 ML/MIN/1.73 CALC BUN/CREAT (test code = 2235) 19 RATIO SODIUM (test code = 2231) 143 MEQ/L POTASSIUM (test code = 2228) 4.8 MEQ/L CHLORIDE (test code = 2215) 108 MEQ/L CARBON DIOXIDE (test code = 2206) 21 MEQ/L CALCIUM (test code = 2209) 9.7 MG/DL PROTEIN, TOTAL (test code = 2229) 7.1 G/DL ALBUMIN (test code = 2201) 4.5 G/DL CALC GLOBULIN (test code = 2240) 2.6 G/DL CALC A/G RATIO (test code = 2234) 1.7 RATIO BILIRUBIN, TOTAL (test code = 2207) 0.2 MG/DL ALKALINE PHOSPHATASE (test code = 2204) 55 U/L AST (test code = 2218) 29 U/L ALT (test code = 2219) 46 U/L Fredi Allen LibertyCOMPREHENSIVE METABOLIC [id number] 00:00:00* Test Item Value Reference Range Interpretation Comme nts GLUCOSE (test code = 2217) 112 MG/DL BUN (test code = 2208) 27 MG/DL CREATININE (test code = 2214) 1.44 MG/DL eGFR (2020 CKD-EPI) (test co de = 97946) 54 ML/MIN/1.73 CALC BUN/CREAT (test code = 2235) 19 RATIO SODIUM (test code = 2231) 143 MEQ/L POTASSIUM (test code = 2228) 4.8 MEQ/L CHLORIDE (test code = 2215) 108 MEQ/L CARBON DIOXIDE (test code = 2206) 21 MEQ/L CALCIUM (test code = 2209) 9.7 MG/DL PROTEIN, TOTAL (test code = 2229) 7.1 G/DL ALBUMIN (test code = 2201) 4.5 G/DL CALC GLOBULIN (test code = 2240) 2.6 G/DL CALC A/G RATIO (test code = 2234) 1.7 RATIO BILIRUBIN, TOTAL (test code = 2207) 0.2 MG/DL ALKALINE PHOSPHATASE (test code = 2204) 55 U/L AST (test code = 2218) 29 U/L ALT (test code = 2219) 46 U/L [facility] [id number] 00:00:00* Test Item Value Reference Range Interpretation Comme nts GLUCOSE (test code = 2217) 112 MG/DL BUN (test code = 2208) 27 MG/DL CREATININE (test code = 2214) 1.44 MG/DL eGFR (2020 CKD-EPI) (test co de = 91658) 54 ML/MIN/1.73 CALC BUN/CREAT (test code = 2235) 19 RATIO SODIUM (test code = 2231) 143 MEQ/L POTASSIUM (test code = 2228) 4.8 MEQ/L CHLORIDE (test code = 2215) 108 MEQ/L CARBON DIOXIDE (test code = 2206) 21 MEQ/L CALCIUM (test code = 2209) 9.7 MG/DL PROTEIN, TOTAL (test code = 2229) 7.1 G/DL ALBUMIN (test code = 2201) 4.5 G/DL CALC GLOBULIN (test code = 2240) 2.6 G/DL CALC A/G RATIO (test code = 2234) 1.7 RATIO BILIRUBIN, TOTAL (test code = 2207) 0.2 MG/DL ALKALINE PHOSPHATASE (test code = 2204) 55 U/L AST (test code = 2218) 29 U/L ALT (test code = 2219) 46 U/L [facility]i [facility] [id number] 00:00:00* Test Item Value Reference Range Interpretation Comme nts GLUCOSE (test code = 2217) 112 MG/DL BUN (test code = 2208) 27 MG/DL CREATININE (test code = 2214) 1.44 MG/DL eGFR (2020 CKD-EPI) (test co de = 08362) 54 ML/MIN/1.73 CALC BUN/CREAT (test code = 2235) 19 RATIO SODIUM (test code = 2231) 143 MEQ/L POTASSIUM (test code = 2228) 4.8 MEQ/L CHLORIDE (test code = 2215) 108 MEQ/L CARBON DIOXIDE (test code = 2206) 21 MEQ/L CALCIUM (test code = 2209) 9.7 MG/DL PROTEIN, TOTAL (test code = 2229) 7.1 G/DL ALBUMIN (test code = 2201) 4.5 G/DL CALC GLOBULIN (test code = 2240) 2.6 G/DL CALC A/G RATIO (test code = 2234) 1.7 RATIO BILIRUBIN, TOTAL (test code = 2207) 0.2 MG/DL ALKALINE PHOSPHATASE (test code = 2204) 55 U/L AST (test code = 2218) 29 U/L ALT (test code = 2219) 46 U/L Fredi MartelCOMPREHENSIVE METABOLIC [id number] 00:00:00* Test Item Value Reference Range Interpretation Comme nts GLUCOSE (test code = 2217) 112 MG/DL BUN (test code = 2208) 27 MG/DL CREATININE (test code = 2214) 1.44 MG/DL eGFR (2020 CKD-EPI) (test co de = 96118) 54 ML/MIN/1.73 CALC BUN/CREAT (test code = 2235) 19 RATIO SODIUM (test code = 2231) 143 MEQ/L POTASSIUM (test code = 2228) 4.8 MEQ/L CHLORIDE (test code = 2215) 108 MEQ/L CARBON DIOXIDE (test code = 2206) 21 MEQ/L CALCIUM (test code = 2209) 9.7 MG/DL PROTEIN, TOTAL (test code = 2229) 7.1 G/DL ALBUMIN (test code = 2201) 4.5 G/DL CALC GLOBULIN (test code = 2240) 2.6 G/DL CALC A/G RATIO (test code = 2234) 1.7 RATIO BILIRUBIN, TOTAL (test code = 2207) 0.2 MG/DL ALKALINE PHOSPHATASE (test code = 2204) 55 U/L AST (test code = 2218) 29 U/L ALT (test code = 2219) 46 U/L Fredi MartelCOMPREHENSIVE METABOLIC [id number] 00:00:00* Test Item Value Reference Range Interpretation Comme nts GLUCOSE (test code = 2217) 112 MG/DL BUN (test code = 2208) 27 MG/DL CREATININE (test code = 2214) 1.44 MG/DL eGFR (2020 CKD-EPI) (test co de = 44814) 54 ML/MIN/1.73 CALC BUN/CREAT (test code = 2235) 19 RATIO SODIUM (test code = 2231) 143 MEQ/L POTASSIUM (test code = 2228) 4.8 MEQ/L CHLORIDE (test code = 2215) 108 MEQ/L CARBON DIOXIDE (test code = 2206) 21 MEQ/L CALCIUM (test code = 2209) 9.7 MG/DL PROTEIN, TOTAL (test code = 2229) 7.1 G/DL ALBUMIN (test code = 2201) 4.5 G/DL CALC GLOBULIN (test code = 2240) 2.6 G/DL CALC A/G RATIO (test code = 2234) 1.7 RATIO BILIRUBIN, TOTAL (test code = 2207) 0.2 MG/DL ALKALINE PHOSPHATASE (test code = 2204) 55 U/L AST (test code = 2218) 29 U/L ALT (test code = 2219) 46 U/L Fredi Allen LibertyCOMPREHENSIVE METABOLIC [id number] 00:00:00* Test Item Value Reference Range Interpretation Comme nts GLUCOSE (test code = 2217) 112 MG/DL BUN (test code = 2208) 27 MG/DL CREATININE (test code = 2214) 1.44 MG/DL eGFR (2020 CKD-EPI) (test co de = 99962) 54 ML/MIN/1.73 CALC BUN/CREAT (test code = 2235) 19 RATIO SODIUM (test code = 2231) 143 MEQ/L POTASSIUM (test code = 2228) 4.8 MEQ/L CHLORIDE (test code = 2215) 108 MEQ/L CARBON DIOXIDE (test code = 2206) 21 MEQ/L CALCIUM (test code = 2209) 9.7 MG/DL PROTEIN, TOTAL (test code = 2229) 7.1 G/DL ALBUMIN (test code = 2201) 4.5 G/DL CALC GLOBULIN (test code = 2240) 2.6 G/DL CALC A/G RATIO (test code = 2234) 1.7 RATIO BILIRUBIN, TOTAL (test code = 2207) 0.2 MG/DL ALKALINE PHOSPHATASE (test code = 2204) 55 U/L AST (test code = 2218) 29 U/L ALT (test code = 2219) 46 U/L Fredi MartelCOMPREHENSIVE METABOLIC [id number] 00:00:00* Test Item Value Reference Range Interpretation Comme nts GLUCOSE (test code = 2217) 112 MG/DL BUN (test code = 2208) 27 MG/DL CREATININE (test code = 2214) 1.44 MG/DL eGFR (2020 CKD-EPI) (test co de = 73265) 54 ML/MIN/1.73 CALC BUN/CREAT (test code = 2235) 19 RATIO SODIUM (test code = 2231) 143 MEQ/L POTASSIUM (test code = 2228) 4.8 MEQ/L CHLORIDE (test code = 2215) 108 MEQ/L CARBON DIOXIDE (test code = 2206) 21 MEQ/L CALCIUM (test code = 2209) 9.7 MG/DL PROTEIN, TOTAL (test code = 2229) 7.1 G/DL ALBUMIN (test code = 2201) 4.5 G/DL CALC GLOBULIN (test code = 2240) 2.6 G/DL CALC A/G RATIO (test code = 2234) 1.7 RATIO BILIRUBIN, TOTAL (test code = 2207) 0.2 MG/DL ALKALINE PHOSPHATASE (test code = 2204) 55 U/L AST (test code = 2218) 29 U/L ALT (test code = 2219) 46 U/L Fredi MartelHEMOGLOBIN [id number] 00:00:00* Test Item Value Reference Range Interpretation Comme nts HEMOGLOBIN A1c (test code = 26420) 6.8 % Fredi MartelLIPID [id number] 00:00:00* Test Item Value Reference Range Interpretation Comme nts CHOLESTEROL (test code = 2210) 202 MG/DL TRIGLYCERIDES (test code = 2232) 121 MG/DL HDL CHOLESTEROL (test code = 2220) 48 MG/DL CALC LDL CHOL (test code = 2237) 131 MG/DL RISK RATIO LDL/HDL (test cod e = 2238) 2.73 RATIO Fredi MartelCOMPREHENSIVE METABOLIC [id number] 00:00:00* Test Item Value Reference Range Interpretation Comme nts GLUCOSE (test code = 2217) 122 MG/DL BUN (test code = 2208) 19 MG/DL CREATININE (test code = 2214) 1.70 MG/DL eGFR (2020 CKD-EPI) (test co de = 66784) 44 ML/MIN/1.73 CALC BUN/CREAT (test code = 2235) 11 RATIO SODIUM (test code = 2231) 144 MEQ/L POTASSIUM (test code = 2228) 5.2 MEQ/L CHLORIDE (test code = 2215) 106 MEQ/L CARBON DIOXIDE (test code = 2206) 26 MEQ/L CALCIUM (test code = 2209) 9.8 MG/DL PROTEIN, TOTAL (test code = 2229) 7.9 G/DL ALBUMIN (test code = 2201) 4.6 G/DL CALC GLOBULIN (test code = 2240) 3.3 G/DL CALC A/G RATIO (test code = 2234) 1.4 RATIO BILIRUBIN, TOTAL (test code = 2207) 0.5 MG/DL ALKALINE PHOSPHATASE (test code = 2204) 60 U/L AST (test code = 2218) 35 U/L ALT (test code = 2219) 47 U/L Fredi MartelHEMOGLOBIN [id number] 00:00:00* Test Item Value Reference Range Interpretation Comme nts HEMOGLOBIN A1c (test code = 70003) 6.8 % Fredi MartelLIPID [id number] 00:00:00* Test Item Value Reference Range Interpretation Comme nts CHOLESTEROL (test code = 2210) 202 MG/DL TRIGLYCERIDES (test code = 2232) 121 MG/DL HDL CHOLESTEROL (test code = 2220) 48 MG/DL CALC LDL CHOL (test code = 2237) 131 MG/DL RISK RATIO LDL/HDL (test cod e = 2238) 2.73 RATIO Fredi MartelCOMPREHENSIVE METABOLIC [id number] 00:00:00* Test Item Value Reference Range Interpretation Comme nts GLUCOSE (test code = 2217) 122 MG/DL BUN (test code = 2208) 19 MG/DL CREATININE (test code = 2214) 1.70 MG/DL eGFR (2020 CKD-EPI) (test co de = 33740) 44 ML/MIN/1.73 CALC BUN/CREAT (test code = 2235) 11 RATIO SODIUM (test code = 2231) 144 MEQ/L POTASSIUM (test code = 2228) 5.2 MEQ/L CHLORIDE (test code = 2215) 106 MEQ/L CARBON DIOXIDE (test code = 2206) 26 MEQ/L CALCIUM (test code = 2209) 9.8 MG/DL PROTEIN, TOTAL (test code = 2229) 7.9 G/DL ALBUMIN (test code = 2201) 4.6 G/DL CALC GLOBULIN (test code = 2240) 3.3 G/DL CALC A/G RATIO (test code = 2234) 1.4 RATIO BILIRUBIN, TOTAL (test code = 2207) 0.5 MG/DL ALKALINE PHOSPHATASE (test code = 2204) 60 U/L AST (test code = 2218) 35 U/L ALT (test code = 2219) 47 U/L Fredi MartelHEMOGLOBIN [id number] 00:00:00* Test Item Value Reference Range Interpretation Comme nts HEMOGLOBIN A1c (test code = 75511) 6.8 % Fredi MartelLIPID [id number] 00:00:00* Test Item Value Reference Range Interpretation Comme nts CHOLESTEROL (test code = 2210) 202 MG/DL TRIGLYCERIDES (test code = 2232) 121 MG/DL HDL CHOLESTEROL (test code = 2220) 48 MG/DL CALC LDL CHOL (test code = 2237) 131 MG/DL RISK RATIO LDL/HDL (test cod e = 2238) 2.73 RATIO Fredi MartelCOMPREHENSIVE METABOLIC [id number] 00:00:00* Test Item Value Reference Range Interpretation Comme nts GLUCOSE (test code = 2217) 122 MG/DL BUN (test code = 2208) 19 MG/DL CREATININE (test code = 2214) 1.70 MG/DL eGFR (2020 CKD-EPI) (test co de = 01808) 44 ML/MIN/1.73 CALC BUN/CREAT (test code = 2235) 11 RATIO SODIUM (test code = 2231) 144 MEQ/L POTASSIUM (test code = 2228) 5.2 MEQ/L CHLORIDE (test code = 2215) 106 MEQ/L CARBON DIOXIDE (test code = 2206) 26 MEQ/L CALCIUM (test code = 2209) 9.8 MG/DL PROTEIN, TOTAL (test code = 2229) 7.9 G/DL ALBUMIN (test code = 2201) 4.6 G/DL CALC GLOBULIN (test code = 2240) 3.3 G/DL CALC A/G RATIO (test code = 2234) 1.4 RATIO BILIRUBIN, TOTAL (test code = 2207) 0.5 MG/DL ALKALINE PHOSPHATASE (test code = 2204) 60 U/L AST (test code = 2218) 35 U/L ALT (test code = 2219) 47 U/L Fredi MartelHEMOGLOBIN [id number] 00:00:00* Test Item Value Reference Range Interpretation Comme nts HEMOGLOBIN A1c (test code = 04378) 6.8 % Fredi MartelLIPID [id number] 00:00:00* Test Item Value Reference Range Interpretation Comme nts CHOLESTEROL (test code = 2210) 202 MG/DL TRIGLYCERIDES (test code = 2232) 121 MG/DL HDL CHOLESTEROL (test code = 2220) 48 MG/DL CALC LDL CHOL (test code = 2237) 131 MG/DL RISK RATIO LDL/HDL (test cod e = 2238) 2.73 RATIO Fredi MartelCOMPREHENSIVE METABOLIC [id number] 00:00:00* Test Item Value Reference Range Interpretation Comme nts GLUCOSE (test code = 2217) 122 MG/DL BUN (test code = 2208) 19 MG/DL CREATININE (test code = 2214) 1.70 MG/DL eGFR (2020 CKD-EPI) (test co de = 03980) 44 ML/MIN/1.73 CALC BUN/CREAT (test code = 2235) 11 RATIO SODIUM (test code = 2231) 144 MEQ/L POTASSIUM (test code = 2228) 5.2 MEQ/L CHLORIDE (test code = 2215) 106 MEQ/L CARBON DIOXIDE (test code = 2206) 26 MEQ/L CALCIUM (test code = 2209) 9.8 MG/DL PROTEIN, TOTAL (test code = 2229) 7.9 G/DL ALBUMIN (test code = 2201) 4.6 G/DL CALC GLOBULIN (test code = 2240) 3.3 G/DL CALC A/G RATIO (test code = 2234) 1.4 RATIO BILIRUBIN, TOTAL (test code = 2207) 0.5 MG/DL ALKALINE PHOSPHATASE (test code = 2204) 60 U/L AST (test code = 2218) 35 U/L ALT (test code = 2219) 47 U/L Fredi MartelHEMOGLOBIN [id number] 00:00:00* Test Item Value Reference Range Interpretation Comme nts HEMOGLOBIN A1c (test code = 45530) 6.8 % Fredi MartelLIPID [id number] 00:00:00* Test Item Value Reference Range Interpretation Comme nts CHOLESTEROL (test code = 2210) 202 MG/DL TRIGLYCERIDES (test code = 2232) 121 MG/DL HDL CHOLESTEROL (test code = 2220) 48 MG/DL CALC LDL CHOL (test code = 2237) 131 MG/DL RISK RATIO LDL/HDL (test cod e = 2238) 2.73 RATIO Fredi MartelCOMPREHENSIVE METABOLIC [id number] 00:00:00* Test Item Value Reference Range Interpretation Comme nts GLUCOSE (test code = 2217) 122 MG/DL BUN (test code = 2208) 19 MG/DL CREATININE (test code = 2214) 1.70 MG/DL eGFR (2020 CKD-EPI) (test co de = 20292) 44 ML/MIN/1.73 CALC BUN/CREAT (test code = 2235) 11 RATIO SODIUM (test code = 2231) 144 MEQ/L POTASSIUM (test code = 2228) 5.2 MEQ/L CHLORIDE (test code = 2215) 106 MEQ/L CARBON DIOXIDE (test code = 2206) 26 MEQ/L CALCIUM (test code = 2209) 9.8 MG/DL PROTEIN, TOTAL (test code = 2229) 7.9 G/DL ALBUMIN (test code = 2201) 4.6 G/DL CALC GLOBULIN (test code = 2240) 3.3 G/DL CALC A/G RATIO (test code = 2234) 1.4 RATIO BILIRUBIN, TOTAL (test code = 2207) 0.5 MG/DL ALKALINE PHOSPHATASE (test code = 2204) 60 U/L AST (test code = 2218) 35 U/L ALT (test code = 2219) 47 U/L Fredi Allen AustinHEMOGLOBIN [id number] 00:00:00* Test Item Value Reference Range Interpretation Comme nts HEMOGLOBIN A1c (test code = 90551) 6.8 % Fredi Allen AustinLIPID [id number] 00:00:00* Test Item Value Reference Range Interpretation Comme nts CHOLESTEROL (test code = 2210) 202 MG/DL TRIGLYCERIDES (test code = 2232) 121 MG/DL HDL CHOLESTEROL (test code = 2220) 48 MG/DL CALC LDL CHOL (test code = 2237) 131 MG/DL RISK RATIO LDL/HDL (test cod e = 2238) 2.73 RATIO Fredi MartelCOMPREHENSIVE METABOLIC [id number] 00:00:00* Test Item Value Reference Range Interpretation Comme nts GLUCOSE (test code = 2217) 122 MG/DL BUN (test code = 2208) 19 MG/DL CREATININE (test code = 2214) 1.70 MG/DL eGFR (2020 CKD-EPI) (test co de = 83956) 44 ML/MIN/1.73 CALC BUN/CREAT (test code = 2235) 11 RATIO SODIUM (test code = 2231) 144 MEQ/L POTASSIUM (test code = 2228) 5.2 MEQ/L CHLORIDE (test code = 2215) 106 MEQ/L CARBON DIOXIDE (test code = 2206) 26 MEQ/L CALCIUM (test code = 2209) 9.8 MG/DL PROTEIN, TOTAL (test code = 2229) 7.9 G/DL ALBUMIN (test code = 2201) 4.6 G/DL CALC GLOBULIN (test code = 2240) 3.3 G/DL CALC A/G RATIO (test code = 2234) 1.4 RATIO BILIRUBIN, TOTAL (test code = 2207) 0.5 MG/DL ALKALINE PHOSPHATASE (test code = 2204) 60 U/L AST (test code = 2218) 35 U/L ALT (test code = 2219) 47 U/L Fredi Allen AustinHEMOGLOBIN [id number] 00:00:00* Test Item Value Reference Range Interpretation Comme nts HEMOGLOBIN A1c (test code = 98906) 6.8 % Fredi MartelLIPID [id number] 00:00:00* Test Item Value Reference Range Interpretation Comme nts CHOLESTEROL (test code = 2210) 202 MG/DL TRIGLYCERIDES (test code = 2232) 121 MG/DL HDL CHOLESTEROL (test code = 2220) 48 MG/DL CALC LDL CHOL (test code = 2237) 131 MG/DL RISK RATIO LDL/HDL (test cod e = 2238) 2.73 RATIO Fredi MartelCOMPREHENSIVE METABOLIC [id number] 00:00:00* Test Item Value Reference Range Interpretation Comme nts GLUCOSE (test code = 2217) 122 MG/DL BUN (test code = 2208) 19 MG/DL CREATININE (test code = 2214) 1.70 MG/DL eGFR (2020 CKD-EPI) (test co de = 31742) 44 ML/MIN/1.73 CALC BUN/CREAT (test code = 2235) 11 RATIO SODIUM (test code = 2231) 144 MEQ/L POTASSIUM (test code = 2228) 5.2 MEQ/L CHLORIDE (test code = 2215) 106 MEQ/L CARBON DIOXIDE (test code = 2206) 26 MEQ/L CALCIUM (test code = 2209) 9.8 MG/DL PROTEIN, TOTAL (test code = 2229) 7.9 G/DL ALBUMIN (test code = 2201) 4.6 G/DL CALC GLOBULIN (test code = 2240) 3.3 G/DL CALC A/G RATIO (test code = 2234) 1.4 RATIO BILIRUBIN, TOTAL (test code = 2207) 0.5 MG/DL ALKALINE PHOSPHATASE (test code = 2204) 60 U/L AST (test code = 2218) 35 U/L ALT (test code = 2219) 47 U/L Fredi MartelHEMOGLOBIN [id number] 00:00:00* Test Item Value Reference Range Interpretation Comme nts HEMOGLOBIN A1c (test code = 41043) 6.8 % Fredi MartelLIPID [id number] 00:00:00* Test Item Value Reference Range Interpretation Comme nts CHOLESTEROL (test code = 2210) 202 MG/DL TRIGLYCERIDES (test code = 2232) 121 MG/DL HDL CHOLESTEROL (test code = 2220) 48 MG/DL CALC LDL CHOL (test code = 2237) 131 MG/DL RISK RATIO LDL/HDL (test cod e = 2238) 2.73 RATIO Fredi MartelCOMPREHENSIVE METABOLIC [id number] 00:00:00* Test Item Value Reference Range Interpretation Comme nts GLUCOSE (test code = 2217) 122 MG/DL BUN (test code = 2208) 19 MG/DL CREATININE (test code = 2214) 1.70 MG/DL eGFR (2020 CKD-EPI) (test co de = 33345) 44 ML/MIN/1.73 CALC BUN/CREAT (test code = 2235) 11 RATIO SODIUM (test code = 2231) 144 MEQ/L POTASSIUM (test code = 2228) 5.2 MEQ/L CHLORIDE (test code = 2215) 106 MEQ/L CARBON DIOXIDE (test code = 2206) 26 MEQ/L CALCIUM (test code = 2209) 9.8 MG/DL PROTEIN, TOTAL (test code = 2229) 7.9 G/DL ALBUMIN (test code = 2201) 4.6 G/DL CALC GLOBULIN (test code = 2240) 3.3 G/DL CALC A/G RATIO (test code = 2234) 1.4 RATIO BILIRUBIN, TOTAL (test code = 2207) 0.5 MG/DL ALKALINE PHOSPHATASE (test code = 2204) 60 U/L AST (test code = 2218) 35 U/L ALT (test code = 2219) 47 U/L Fredi MartelHEMOGLOBIN [id number] 00:00:00* Test Item Value Reference Range Interpretation Comme nts HEMOGLOBIN A1c (test code = 64637) 6.8 % Fredi Allen AustinLIPID [id number] 00:00:00* Test Item Value Reference Range Interpretation Comme nts CHOLESTEROL (test code = 2210) 202 MG/DL TRIGLYCERIDES (test code = 2232) 121 MG/DL HDL CHOLESTEROL (test code = 2220) 48 MG/DL CALC LDL CHOL (test code = 2237) 131 MG/DL RISK RATIO LDL/HDL (test cod e = 2238) 2.73 RATIO Fredi MartelCOMPREHENSIVE METABOLIC [id number] 00:00:00* Test Item Value Reference Range Interpretation Comme nts GLUCOSE (test code = 2217) 122 MG/DL BUN (test code = 2208) 19 MG/DL CREATININE (test code = 2214) 1.70 MG/DL eGFR (2020 CKD-EPI) (test co de = 35860) 44 ML/MIN/1.73 CALC BUN/CREAT (test code = 2235) 11 RATIO SODIUM (test code = 2231) 144 MEQ/L POTASSIUM (test code = 2228) 5.2 MEQ/L CHLORIDE (test code = 2215) 106 MEQ/L CARBON DIOXIDE (test code = 2206) 26 MEQ/L CALCIUM (test code = 2209) 9.8 MG/DL PROTEIN, TOTAL (test code = 2229) 7.9 G/DL ALBUMIN (test code = 2201) 4.6 G/DL CALC GLOBULIN (test code = 2240) 3.3 G/DL CALC A/G RATIO (test code = 2234) 1.4 RATIO BILIRUBIN, TOTAL (test code = 2207) 0.5 MG/DL ALKALINE PHOSPHATASE (test code = 4) 60 U/L AST (test code = 2218) 35 U/L ALT (test code = 2219) 47 U/L Fredi Allen AustinHEMOGLOBIN [id number] 07:20:12* Test Item Value Reference Range Interpretation Comme nts HEMOGLOBIN A1c (test code = 03902) 7.2 % 4.2-5.6 H [employer] GUIDELINES FOR HGB A1C: PREDIABETES/INCREASED RISK . . . . . . . 5.7-6.4% DIAGNOSIS OF DIABETES . . . . . . . . . >=6.5% WITH CONFIRMATION OR APPROPRIATE SYMPTOMS NOTE: ASSAY MAY BE AFFECTED BY HEMOGLOBINOPATHIES (SICKLE CELL ANEMIA, S-C DISEASE, OTHERS) OR ARTIFICIALLY LOWERED BY DECREASED RED CELL SURVIVAL (HEMOLYTIC ANEMIAS, BLOOD LOSS, ETC.). CONSIDER ALTERNATE TESTING OR LABORATORY CONSULTATION. CBC W/AUTO DIFF WITH [id number] 06:35:30* Test Item Value Reference Range Interpretation Comme nts WBC (test code = 1001) 7.8 K/UL 3.5-11.0 RBC (test code = 1002) 4.77 M/UL 4.50-6.10 HEMOGLOBIN (test code = 1003) 14.7 G/DL 13.5-17.0 HEMATOCRIT (test code = 1004) 42.8 % 40.0-51.0 MCV (test code = 1005) 89.7 fL 80.0-99.0 MCH (test code = 1006) 30.8 PG 25.0-33.0 MCHC (test code = 1007) 34.3 G/DL 31.0-36.0 RDW (test code = 1038) 13.5 % 11.5-15.0 NEUTROPHILS (test code = 1008) 40.1 % LYMPHOCYTES (test code = 1010) 44.7 % MONOCYTES (test code = 1011) 9.8 % EOSINOPHILS (test code = 1012) 4.6 % BASOPHILS (test code = 1013) 0.5 % IMMATURE GRANULOCYTES (test code = 1036) 0.3 % NUCLEATED RBCS (test code = 1065) 0.0 /100 WBC'S See_Comment [Automated messa ge] The system which generated this result transmitted reference range: 0.0. The reference range was not used to interpret this result as normal/abnormal. PLATELET COUNT (test code = 1015) 337 K/UL 130-400 ABSOLUTE NEUTROPHILS (test code = 1066) 3.12 K/UL 1.50-7.50 ABSOLUTE LYMPHOCYTES (test code = 1067) 3.47 K/UL 1.00-4.00 ABSOLUTE MONOCYTES (test code = 1068) 0.76 K/UL 0.20-1.00 ABSOLUTE EOSINOPHILS (test code = 1040) 0.36 K/UL 0.00-0.50 ABSOLUTE BASOPHILS (test code = 1069) 0.04 K/UL 0.00-0.20 ABS IMMATURE GRANULOCYTES (test code = 1020) 0.02 K/UL 0.00-0.10 ABS NUCLEATED RBCS (test code = 83879) 0.00 K/UL 0.00-0.11 LIPID [id number] 06:14:11* Test Item Value Reference Range Interpretation Comme nts CHOLESTEROL (test code = 2210) 202 MG/DL <200 H TRIGLYCERIDES (test code = 2232) 119 MG/DL <150 HDL CHOLESTEROL (test code = 2220) 46 MG/DL >39 CALC LDL CHOL (test code = 2237) 133 MG/DL <100 H NOTE: CALCULATED LDL IS BASED ON WINST[place]-RODAS METHOD WHICHINCLUDES ADJUSTABLE TRIGLYCERIDE:VLDL CHOLESTEROL RATIO.THIS FACTOR VARIES BY MEASURED TRIGLYCERIDE AND NON-HDLCHOLESTEROL CONCENTRATIONS WITH INCREASED CALCULATED LDL SEENIN HIGHER TRIGLYCERIDE OR LOWER NON-HDL SPECIMENS. FOR MOREINFORMATION, SEE CLIENT ANNOUNCEMENT AT [email or web address] RATIO LDL/HDL (test code = 2238) 2.89 RATIO <3.55 PSA, [id number] 06:08:25* Test Item Value Reference Range Interpretation Comme nts PSA, TOTAL (test code = 2606) 0.70 NG/ML See_Comment NOTE: Methodolog y is Dimple Abril Electrochemiluminescence Immunoassay traceable to WHO reference standard 96/760. UNLESS OTHERWISE INDICATED, ALL TESTING PERFORMED [facility] [employer] [address] [place] [id number] [employer]: YEIMY BOURNE M.D. [place] NUMBER [id number] [facility] [place]. [id number] [Automated message] The system which generated this result transmitted reference range: <=4.00. The reference range was not used to interpret this result as normal/abnormal. [id number] 05:59:24* Test Item Value Reference Range Interpretation Comme nts TESTOSTERONE (test code = 2830) 666 NG/DL 300-720 [id number] 00:00:00* Test Item Value Reference Range Interpretation Comme nts TESTOSTERONE (test code = 2830) 666 NG/DL Fredi MartelPSA, [id number] 00:00:00* Test Item Value Reference Range Interpretation Comme nts PSA, TOTAL (test code = 2606) 0.70 NG/ML Fredi MartelHEMOGLOBIN [id number] 00:00:00* Test Item Value Reference Range Interpretation Comme nts HEMOGLOBIN A1c (test code = 91537) 7.2 % Fredi MartelCBC W/AUTO [id number] 00:00:00* Test Item Value Reference Range Interpretation Comme nts WBC (test code = 1001) 7.8 K/UL RBC (test code = 1002) 4.77 M/UL HEMOGLOBIN (test code = 1003) 14.7 G/DL HEMATOCRIT (test code = 1004) 42.8 % MCV (test code = 1005) 89.7 fL MCH (test code = 1006) 30.8 PG MCHC (test code = 1007) 34.3 G/DL RDW (test code = 1038) 13.5 % NEUTROPHILS (test code = 1008) 40.1 % LYMPHOCYTES (test code = 1010) 44.7 % MONOCYTES (test code = 1011) 9.8 % EOSINOPHILS (test code = 1012) 4.6 % BASOPHILS (test code = 1013) 0.5 % IMMATURE GRANULOCYTES (test code = 1036) 0.3 % NUCLEATED RBCS (test code = 1065) 0.0 /100WBC'S PLATELET COUNT (test code = 1015) 337 K/UL ABSOLUTE NEUTROPHILS (test c ode = 1066) 3.12 K/UL ABSOLUTE LYMPHOCYTES (test c ode = 1067) 3.47 K/UL ABSOLUTE MONOCYTES (test cod e = 1068) 0.76 K/UL ABSOLUTE EOSINOPHILS (test c ode = 1040) 0.36 K/UL ABSOLUTE BASOPHILS (test cod e = 1069) 0.04 K/UL ABS IMMATURE GRANULOCYTES (t est code = 1020) 0.02 K/UL ABS NUCLEATED RBCS (test cod e = 92729) 0.00 K/UL Fredi MartelLIPID [id number] 00:00:00* Test Item Value Reference Range Interpretation Comme nts CHOLESTEROL (test code = 2210) 202 MG/DL TRIGLYCERIDES (test code = 2232) 119 MG/DL HDL CHOLESTEROL (test code = 2220) 46 MG/DL CALC LDL CHOL (test code = 2237) 133 MG/DL RISK RATIO LDL/HDL (test cod e = 2238) 2.89 RATIO Fredi [id number] 00:00:00* Test Item Value Reference Range Interpretation Comme nts TESTOSTERONE (test code = 2830) 666 NG/DL Fredi MartelPSA, [id number] 00:00:00* Test Item Value Reference Range Interpretation Comme nts PSA, TOTAL (test code = 2606) 0.70 NG/ML Fredi MartelHEMOGLOBIN [id number] 00:00:00* Test Item Value Reference Range Interpretation Comme nts HEMOGLOBIN A1c (test code = 94736) 7.2 % Fredi MartelCBC W/AUTO [id number] 00:00:00* Test Item Value Reference Range Interpretation Comme nts WBC (test code = 1001) 7.8 K/UL RBC (test code = 1002) 4.77 M/UL HEMOGLOBIN (test code = 1003) 14.7 G/DL HEMATOCRIT (test code = 1004) 42.8 % MCV (test code = 1005) 89.7 fL MCH (test code = 1006) 30.8 PG MCHC (test code = 1007) 34.3 G/DL RDW (test code = 1038) 13.5 % NEUTROPHILS (test code = 1008) 40.1 % LYMPHOCYTES (test code = 1010) 44.7 % MONOCYTES (test code = 1011) 9.8 % EOSINOPHILS (test code = 1012) 4.6 % BASOPHILS (test code = 1013) 0.5 % IMMATURE GRANULOCYTES (test code = 1036) 0.3 % NUCLEATED RBCS (test code = 1065) 0.0 /100WBC'S PLATELET COUNT (test code = 1015) 337 K/UL ABSOLUTE NEUTROPHILS (test c ode = 1066) 3.12 K/UL ABSOLUTE LYMPHOCYTES (test c ode = 1067) 3.47 K/UL ABSOLUTE MONOCYTES (test cod e = 1068) 0.76 K/UL ABSOLUTE EOSINOPHILS (test c ode = 1040) 0.36 K/UL ABSOLUTE BASOPHILS (test cod e = 1069) 0.04 K/UL ABS IMMATURE GRANULOCYTES (t est code = 1020) 0.02 K/UL ABS NUCLEATED RBCS (test cod e = 63481) 0.00 K/UL Fredi MartelLIPID [id number] 00:00:00* Test Item Value Reference Range Interpretation Comme nts CHOLESTEROL (test code = 2210) 202 MG/DL TRIGLYCERIDES (test code = 2232) 119 MG/DL HDL CHOLESTEROL (test code = 2220) 46 MG/DL CALC LDL CHOL (test code = 2237) 133 MG/DL RISK RATIO LDL/HDL (test cod e = 2238) 2.89 RATIO Fredi [id number] 00:00:00* Test Item Value Reference Range Interpretation Comme nts TESTOSTERONE (test code = 2830) 666 NG/DL Fredi MartelPSA, [id number] 00:00:00* Test Item Value Reference Range Interpretation Comme nts PSA, TOTAL (test code = 2606) 0.70 NG/ML Fredi MartelHEMOGLOBIN [id number] 00:00:00* Test Item Value Reference Range Interpretation Comme nts HEMOGLOBIN A1c (test code = 58136) 7.2 % Fredi MartelCBC W/AUTO [id number] 00:00:00* Test Item Value Reference Range Interpretation Comme nts WBC (test code = 1001) 7.8 K/UL RBC (test code = 1002) 4.77 M/UL HEMOGLOBIN (test code = 1003) 14.7 G/DL HEMATOCRIT (test code = 1004) 42.8 % MCV (test code = 1005) 89.7 fL MCH (test code = 1006) 30.8 PG MCHC (test code = 1007) 34.3 G/DL RDW (test code = 1038) 13.5 % NEUTROPHILS (test code = 1008) 40.1 % LYMPHOCYTES (test code = 1010) 44.7 % MONOCYTES (test code = 1011) 9.8 % EOSINOPHILS (test code = 1012) 4.6 % BASOPHILS (test code = 1013) 0.5 % IMMATURE GRANULOCYTES (test code = 1036) 0.3 % NUCLEATED RBCS (test code = 1065) 0.0 /100WBC'S PLATELET COUNT (test code = 1015) 337 K/UL ABSOLUTE NEUTROPHILS (test c ode = 1066) 3.12 K/UL ABSOLUTE LYMPHOCYTES (test c ode = 1067) 3.47 K/UL ABSOLUTE MONOCYTES (test cod e = 1068) 0.76 K/UL ABSOLUTE EOSINOPHILS (test c ode = 1040) 0.36 K/UL ABSOLUTE BASOPHILS (test cod e = 1069) 0.04 K/UL ABS IMMATURE GRANULOCYTES (t est code = 1020) 0.02 K/UL ABS NUCLEATED RBCS (test cod e = 66100) 0.00 K/UL Fredi MartelLIPID [id number] 00:00:00* Test Item Value Reference Range Interpretation Comme nts CHOLESTEROL (test code = 2210) 202 MG/DL TRIGLYCERIDES (test code = 2232) 119 MG/DL HDL CHOLESTEROL (test code = 2220) 46 MG/DL CALC LDL CHOL (test code = 2237) 133 MG/DL RISK RATIO LDL/HDL (test cod e = 2238) 2.89 RATIO Fredi [id number] 00:00:00* Test Item Value Reference Range Interpretation Comme nts TESTOSTERONE (test code = 2830) 666 NG/DL Fredi MartelPSA, [id number] 00:00:00* Test Item Value Reference Range Interpretation Comme nts PSA, TOTAL (test code = 2606) 0.70 NG/ML Fredi MartelHEMOGLOBIN [id number] 00:00:00* Test Item Value Reference Range Interpretation Comme nts HEMOGLOBIN A1c (test code = 89364) 7.2 % Fredi MartelCBC W/AUTO [id number] 00:00:00* Test Item Value Reference Range Interpretation Comme nts WBC (test code = 1001) 7.8 K/UL RBC (test code = 1002) 4.77 M/UL HEMOGLOBIN (test code = 1003) 14.7 G/DL HEMATOCRIT (test code = 1004) 42.8 % MCV (test code = 1005) 89.7 fL MCH (test code = 1006) 30.8 PG MCHC (test code = 1007) 34.3 G/DL RDW (test code = 1038) 13.5 % NEUTROPHILS (test code = 1008) 40.1 % LYMPHOCYTES (test code = 1010) 44.7 % MONOCYTES (test code = 1011) 9.8 % EOSINOPHILS (test code = 1012) 4.6 % BASOPHILS (test code = 1013) 0.5 % IMMATURE GRANULOCYTES (test code = 1036) 0.3 % NUCLEATED RBCS (test code = 1065) 0.0 /100WBC'S PLATELET COUNT (test code = 1015) 337 K/UL ABSOLUTE NEUTROPHILS (test c ode = 1066) 3.12 K/UL ABSOLUTE LYMPHOCYTES (test c ode = 1067) 3.47 K/UL ABSOLUTE MONOCYTES (test cod e = 1068) 0.76 K/UL ABSOLUTE EOSINOPHILS (test c ode = 1040) 0.36 K/UL ABSOLUTE BASOPHILS (test cod e = 1069) 0.04 K/UL ABS IMMATURE GRANULOCYTES (t est code = 1020) 0.02 K/UL ABS NUCLEATED RBCS (test cod e = 38876) 0.00 K/UL Fredi aMrtelLIPID [id number] 00:00:00* Test Item Value Reference Range Interpretation Comme nts CHOLESTEROL (test code = 2210) 202 MG/DL TRIGLYCERIDES (test code = 2232) 119 MG/DL HDL CHOLESTEROL (test code = 2220) 46 MG/DL CALC LDL CHOL (test code = 2237) 133 MG/DL RISK RATIO LDL/HDL (test cod e = 2238) 2.89 RATIO Fredi [id number] 00:00:00* Test Item Value Reference Range Interpretation Comme nts TESTOSTERONE (test code = 2830) 666 NG/DL Fredi MartelPSA, [id number] 00:00:00* Test Item Value Reference Range Interpretation Comme nts PSA, TOTAL (test code = 2606) 0.70 NG/ML Fredi MartelHEMOGLOBIN [id number] 00:00:00* Test Item Value Reference Range Interpretation Comme nts HEMOGLOBIN A1c (test code = 48762) 7.2 % Fredi MartelCBC W/AUTO [id number] 00:00:00* Test Item Value Reference Range Interpretation Comme nts WBC (test code = 1001) 7.8 K/UL RBC (test code = 1002) 4.77 M/UL HEMOGLOBIN (test code = 1003) 14.7 G/DL HEMATOCRIT (test code = 1004) 42.8 % MCV (test code = 1005) 89.7 fL MCH (test code = 1006) 30.8 PG MCHC (test code = 1007) 34.3 G/DL RDW (test code = 1038) 13.5 % NEUTROPHILS (test code = 1008) 40.1 % LYMPHOCYTES (test code = 1010) 44.7 % MONOCYTES (test code = 1011) 9.8 % EOSINOPHILS (test code = 1012) 4.6 % BASOPHILS (test code = 1013) 0.5 % IMMATURE GRANULOCYTES (test code = 1036) 0.3 % NUCLEATED RBCS (test code = 1065) 0.0 /100WBC'S PLATELET COUNT (test code = 1015) 337 K/UL ABSOLUTE NEUTROPHILS (test c ode = 1066) 3.12 K/UL ABSOLUTE LYMPHOCYTES (test c ode = 1067) 3.47 K/UL ABSOLUTE MONOCYTES (test cod e = 1068) 0.76 K/UL ABSOLUTE EOSINOPHILS (test c ode = 1040) 0.36 K/UL ABSOLUTE BASOPHILS (test cod e = 1069) 0.04 K/UL ABS IMMATURE GRANULOCYTES (t est code = 1020) 0.02 K/UL ABS NUCLEATED RBCS (test cod e = 66544) 0.00 K/UL Fredi MartelLIPID [id number] 00:00:00* Test Item Value Reference Range Interpretation Comme nts CHOLESTEROL (test code = 2210) 202 MG/DL TRIGLYCERIDES (test code = 2232) 119 MG/DL HDL CHOLESTEROL (test code = 2220) 46 MG/DL CALC LDL CHOL (test code = 2237) 133 MG/DL RISK RATIO LDL/HDL (test cod e = 2238) 2.89 RATIO Fredi [id number] 00:00:00* Test Item Value Reference Range Interpretation Comme nts TESTOSTERONE (test code = 2830) 666 NG/DL Fredi MartelPSA, [id number] 00:00:00* Test Item Value Reference Range Interpretation Comme nts PSA, TOTAL (test code = 2606) 0.70 NG/ML Fredi MartelHEMOGLOBIN [id number] 00:00:00* Test Item Value Reference Range Interpretation Comme nts HEMOGLOBIN A1c (test code = 47810) 7.2 % Fredi MartelCBC W/AUTO [id number] 00:00:00* Test Item Value Reference Range Interpretation Comme nts WBC (test code = 1001) 7.8 K/UL RBC (test code = 1002) 4.77 M/UL HEMOGLOBIN (test code = 1003) 14.7 G/DL HEMATOCRIT (test code = 1004) 42.8 % MCV (test code = 1005) 89.7 fL MCH (test code = 1006) 30.8 PG MCHC (test code = 1007) 34.3 G/DL RDW (test code = 1038) 13.5 % NEUTROPHILS (test code = 1008) 40.1 % LYMPHOCYTES (test code = 1010) 44.7 % MONOCYTES (test code = 1011) 9.8 % EOSINOPHILS (test code = 1012) 4.6 % BASOPHILS (test code = 1013) 0.5 % IMMATURE GRANULOCYTES (test code = 1036) 0.3 % NUCLEATED RBCS (test code = 1065) 0.0 /100WBC'S PLATELET COUNT (test code = 1015) 337 K/UL ABSOLUTE NEUTROPHILS (test c ode = 1066) 3.12 K/UL ABSOLUTE LYMPHOCYTES (test c ode = 1067) 3.47 K/UL ABSOLUTE MONOCYTES (test cod e = 1068) 0.76 K/UL ABSOLUTE EOSINOPHILS (test c ode = 1040) 0.36 K/UL ABSOLUTE BASOPHILS (test cod e = 1069) 0.04 K/UL ABS IMMATURE GRANULOCYTES (t est code = 1020) 0.02 K/UL ABS NUCLEATED RBCS (test cod e = 79352) 0.00 K/UL Fredi MartelLIPID [id number] 00:00:00* Test Item Value Reference Range Interpretation Comme nts CHOLESTEROL (test code = 2210) 202 MG/DL TRIGLYCERIDES (test code = 2232) 119 MG/DL HDL CHOLESTEROL (test code = 2220) 46 MG/DL CALC LDL CHOL (test code = 2237) 133 MG/DL RISK RATIO LDL/HDL (test cod e = 2238) 2.89 RATIO Fredi [id number] 00:00:00* Test Item Value Reference Range Interpretation Comme nts TESTOSTERONE (test code = 2830) 666 NG/DL Fredi MartelPSA, [id number] 00:00:00* Test Item Value Reference Range Interpretation Comme nts PSA, TOTAL (test code = 2606) 0.70 NG/ML Fredi MartelHEMOGLOBIN [id number] 00:00:00* Test Item Value Reference Range Interpretation Comme nts HEMOGLOBIN A1c (test code = 18767) 7.2 % Fredi MartelCBC W/AUTO [id number] 00:00:00* Test Item Value Reference Range Interpretation Comme nts WBC (test code = 1001) 7.8 K/UL RBC (test code = 1002) 4.77 M/UL HEMOGLOBIN (test code = 1003) 14.7 G/DL HEMATOCRIT (test code = 1004) 42.8 % MCV (test code = 1005) 89.7 fL MCH (test code = 1006) 30.8 PG MCHC (test code = 1007) 34.3 G/DL RDW (test code = 1038) 13.5 % NEUTROPHILS (test code = 1008) 40.1 % LYMPHOCYTES (test code = 1010) 44.7 % MONOCYTES (test code = 1011) 9.8 % EOSINOPHILS (test code = 1012) 4.6 % BASOPHILS (test code = 1013) 0.5 % IMMATURE GRANULOCYTES (test code = 1036) 0.3 % NUCLEATED RBCS (test code = 1065) 0.0 /100WBC'S PLATELET COUNT (test code = 1015) 337 K/UL ABSOLUTE NEUTROPHILS (test c ode = 1066) 3.12 K/UL ABSOLUTE LYMPHOCYTES (test c ode = 1067) 3.47 K/UL ABSOLUTE MONOCYTES (test cod e = 1068) 0.76 K/UL ABSOLUTE EOSINOPHILS (test c ode = 1040) 0.36 K/UL ABSOLUTE BASOPHILS (test cod e = 1069) 0.04 K/UL ABS IMMATURE GRANULOCYTES (t est code = 1020) 0.02 K/UL ABS NUCLEATED RBCS (test cod e = 79542) 0.00 K/UL Fredi MartelLIPID [id number] 00:00:00* Test Item Value Reference Range Interpretation Comme nts CHOLESTEROL (test code = 2210) 202 MG/DL TRIGLYCERIDES (test code = 2232) 119 MG/DL HDL CHOLESTEROL (test code = 2220) 46 MG/DL CALC LDL CHOL (test code = 2237) 133 MG/DL RISK RATIO LDL/HDL (test cod e = 2238) 2.89 RATIO Fredi [id number] 00:00:00* Test Item Value Reference Range Interpretation Comme nts TESTOSTERONE (test code = 2830) 666 NG/DL Fredi MartelPSA, [id number] 00:00:00* Test Item Value Reference Range Interpretation Comme nts PSA, TOTAL (test code = 2606) 0.70 NG/ML Fredi MartelHEMOGLOBIN [id number] 00:00:00* Test Item Value Reference Range Interpretation Comme nts HEMOGLOBIN A1c (test code = 38052) 7.2 % Fredi MartelCBC W/AUTO [id number] 00:00:00* Test Item Value Reference Range Interpretation Comme nts WBC (test code = 1001) 7.8 K/UL RBC (test code = 1002) 4.77 M/UL HEMOGLOBIN (test code = 1003) 14.7 G/DL HEMATOCRIT (test code = 1004) 42.8 % MCV (test code = 1005) 89.7 fL MCH (test code = 1006) 30.8 PG MCHC (test code = 1007) 34.3 G/DL RDW (test code = 1038) 13.5 % NEUTROPHILS (test code = 1008) 40.1 % LYMPHOCYTES (test code = 1010) 44.7 % MONOCYTES (test code = 1011) 9.8 % EOSINOPHILS (test code = 1012) 4.6 % BASOPHILS (test code = 1013) 0.5 % IMMATURE GRANULOCYTES (test code = 1036) 0.3 % NUCLEATED RBCS (test code = 1065) 0.0 /100WBC'S PLATELET COUNT (test code = 1015) 337 K/UL ABSOLUTE NEUTROPHILS (test c ode = 1066) 3.12 K/UL ABSOLUTE LYMPHOCYTES (test c ode = 1067) 3.47 K/UL ABSOLUTE MONOCYTES (test cod e = 1068) 0.76 K/UL ABSOLUTE EOSINOPHILS (test c ode = 1040) 0.36 K/UL ABSOLUTE BASOPHILS (test cod e = 1069) 0.04 K/UL ABS IMMATURE GRANULOCYTES (t est code = 1020) 0.02 K/UL ABS NUCLEATED RBCS (test cod e = 70537) 0.00 K/UL Fredi MartelLIPID [id number] 00:00:00* Test Item Value Reference Range Interpretation Comme nts CHOLESTEROL (test code = 2210) 202 MG/DL TRIGLYCERIDES (test code = 2232) 119 MG/DL HDL CHOLESTEROL (test code = 2220) 46 MG/DL CALC LDL CHOL (test code = 2237) 133 MG/DL RISK RATIO LDL/HDL (test cod e = 2238) 2.89 RATIO Fredi [id number] 00:00:00* Test Item Value Reference Range Interpretation Comme nts TESTOSTERONE (test code = 2830) 666 NG/DL Fredi MartelPSA, [id number] 00:00:00* Test Item Value Reference Range Interpretation Comme nts PSA, TOTAL (test code = 2606) 0.70 NG/ML Fredi MartelHEMOGLOBIN [id number] 00:00:00* Test Item Value Reference Range Interpretation Comme nts HEMOGLOBIN A1c (test code = 44552) 7.2 % Fredi Allen DelonteCBC W/AUTO [id number] 00:00:00* Test Item Value Reference Range Interpretation Comme nts WBC (test code = 1001) 7.8 K/UL RBC (test code = 1002) 4.77 M/UL HEMOGLOBIN (test code = 1003) 14.7 G/DL HEMATOCRIT (test code = 1004) 42.8 % MCV (test code = 1005) 89.7 fL MCH (test code = 1006) 30.8 PG MCHC (test code = 1007) 34.3 G/DL RDW (test code = 1038) 13.5 % NEUTROPHILS (test code = 1008) 40.1 % LYMPHOCYTES (test code = 1010) 44.7 % MONOCYTES (test code = 1011) 9.8 % EOSINOPHILS (test code = 1012) 4.6 % BASOPHILS (test code = 1013) 0.5 % IMMATURE GRANULOCYTES (test code = 1036) 0.3 % NUCLEATED RBCS (test code = 1065) 0.0 /100WBC'S PLATELET COUNT (test code = 1015) 337 K/UL ABSOLUTE NEUTROPHILS (test c ode = 1066) 3.12 K/UL ABSOLUTE LYMPHOCYTES (test c ode = 1067) 3.47 K/UL ABSOLUTE MONOCYTES (test cod e = 1068) 0.76 K/UL ABSOLUTE EOSINOPHILS (test c ode = 1040) 0.36 K/UL ABSOLUTE BASOPHILS (test cod e = 1069) 0.04 K/UL ABS IMMATURE GRANULOCYTES (t est code = 1020) 0.02 K/UL ABS NUCLEATED RBCS (test cod e = 63670) 0.00 K/UL Fredi MartelLIPID [id number] 00:00:00* Test Item Value Reference Range Interpretation Comme nts CHOLESTEROL (test code = 2210) 202 MG/DL TRIGLYCERIDES (test code = 2232) 119 MG/DL HDL CHOLESTEROL (test code = 2220) 46 MG/DL CALC LDL CHOL (test code = 2237) 133 MG/DL RISK RATIO LDL/HDL (test cod e = 2238) 2.89 RATIO Fredi MartelCBC W/AUTO [id number] 00:00:00* Test Item Value Reference Range Interpretation Comme nts WBC (test code = 1001) 7.8 K/UL RBC (test code = 1002) 4.77 M/UL HEMOGLOBIN (test code = 1003) 14.7 G/DL HEMATOCRIT (test code = 1004) 42.8 % MCV (test code = 1005) 89.7 fL MCH (test code = 1006) 30.8 PG MCHC (test code = 1007) 34.3 G/DL RDW (test code = 1038) 13.5 % NEUTROPHILS (test code = 1008) 40.1 % LYMPHOCYTES (test code = 1010) 44.7 % MONOCYTES (test code = 1011) 9.8 % EOSINOPHILS (test code = 1012) 4.6 % BASOPHILS (test code = 1013) 0.5 % IMMATURE GRANULOCYTES (test code = 1036) 0.3 % NUCLEATED RBCS (test code = 1065) 0.0 /100WBC'S PLATELET COUNT (test code = 1015) 337 K/UL ABSOLUTE NEUTROPHILS (test c ode = 1066) 3.12 K/UL ABSOLUTE LYMPHOCYTES (test c ode = 1067) 3.47 K/UL ABSOLUTE MONOCYTES (test cod e = 1068) 0.76 K/UL ABSOLUTE EOSINOPHILS (test c ode = 1040) 0.36 K/UL ABSOLUTE BASOPHILS (test cod e = 1069) 0.04 K/UL ABS IMMATURE GRANULOCYTES (t est code = 1020) 0.02 K/UL ABS NUCLEATED RBCS (test cod e = 23981) 0.00 K/UL LIPID [id number] 00:00:00* Test Item Value Reference Range Interpretation Comme nts CHOLESTEROL (test code = 2210) 202 MG/DL TRIGLYCERIDES (test code = 2232) 119 MG/DL HDL CHOLESTEROL (test code = 2220) 46 MG/DL CALC LDL CHOL (test code = 2237) 133 MG/DL RISK RATIO LDL/HDL (test cod e = 2238) 2.89 RATIO [id number] 00:00:00* Test Item Value Reference Range Interpretation Comme nts TESTOSTERONE (test code = 2830) 666 NG/DL PSA, [id number] 00:00:00* Test Item Value Reference Range Interpretation Comme nts PSA, TOTAL (test code = 2606) 0.70 NG/ML HEMOGLOBIN [id number] 00:00:00* Test Item Value Reference Range Interpretation Comme nts HEMOGLOBIN A1c (test code = 05942) 7.2 % LIPID [id number] 03:46:43* Test Item Value Reference Range Interpretation Comme nts CHOLESTEROL (test code = 2210) 196 MG/DL <200 TRIGLYCERIDES (test code = 2232) 123 MG/DL <150 HDL CHOLESTEROL (test code = 2220) 46 MG/DL >39 CALC LDL CHOL (test code = 2237) 127 MG/DL <100 H NOTE: CALCULATED LDL IS BASED ON WINSTON-RODAS METHOD WHICHINCLUDES ADJUSTABLE TRIGLYCERIDE:VLDL CHOLESTEROL RATIO.THIS FACTOR VARIES BY MEASURED TRIGLYCERIDE AND NON-HDLCHOLESTEROL CONCENTRATIONS WITH INCREASED CALCULATED LDL SEENIN HIGHER TRIGLYCERIDE OR LOWER NON-HDL SPECIMENS. FOR MOREINFORMATION, SEE CLIENT ANNOUNCEMENT AT [email or web address] RISK RATIO LDL/HDL (test code = 2238) 2.76 RATIO <3.55 UNLESS OTHERW ISE INDICATED, ALL TESTING PERFORMED [facility] [employer] [address] [place] [address] [employer]: YEIMY BOURNE M.D. [facility] NUMBER [id number] [facility] [place]. [id number] HEMOGLOBIN [id number] 03:33:54* Test Item Value Reference Range Interpretation Comme nts HEMOGLOBIN A1c (test code = 15523) 7.3 % 4.2-5.6 H [employer] GUIDELINES FOR HGB A1C: PREDIABETES/INCREASED RISK . . . . . . . 5.7-6.4% DIAGNOSIS OF DIABETES . . . . . . . . . >=6.5% WITH CONFIRMATION OR APPROPRIATE SYMPTOMS NOTE: ASSAY MAY BE AFFECTED BY HEMOGLOBINOPATHIES (SICKLE CELL ANEMIA, S-C DISEASE, OTHERS) OR ARTIFICIALLY LOWERED BY DECREASED RED CELL SURVIVAL (HEMOLYTIC ANEMIAS, BLOOD LOSS, ETC.). CONSIDER ALTERNATE TESTING OR LABORATORY CONSULTATION. HEMOGLOBIN [id number] 00:00:00* Test Item Value Reference Range Interpretation Comme nts HEMOGLOBIN A1c (test code = 23337) 7.3 % Fredi MartelLIPID [id number] 00:00:00* Test Item Value Reference Range Interpretation Comme nts CHOLESTEROL (test code = 2210) 196 MG/DL TRIGLYCERIDES (test code = 2232) 123 MG/DL HDL CHOLESTEROL (test code = 2220) 46 MG/DL CALC LDL CHOL (test code = 2237) 127 MG/DL RISK RATIO LDL/HDL (test cod e = 2238) 2.76 RATIO Fredi Allen AustinHEMOGLOBIN [id number] 00:00:00* Test Item Value Reference Range Interpretation Comme nts HEMOGLOBIN A1c (test code = 34719) 7.3 % Fredi Allen AustinLIPID [id number] 00:00:00* Test Item Value Reference Range Interpretation Comme nts CHOLESTEROL (test code = 2210) 196 MG/DL TRIGLYCERIDES (test code = 2232) 123 MG/DL HDL CHOLESTEROL (test code = 2220) 46 MG/DL CALC LDL CHOL (test code = 2237) 127 MG/DL RISK RATIO LDL/HDL (test cod e = 2238) 2.76 RATIO Fredi Allen AustinHEMOGLOBIN [id number] 00:00:00* Test Item Value Reference Range Interpretation Comme nts HEMOGLOBIN A1c (test code = 66003) 7.3 % Fredi Allen AustinLIPID [id number] 00:00:00* Test Item Value Reference Range Interpretation Comme nts CHOLESTEROL (test code = 2210) 196 MG/DL TRIGLYCERIDES (test code = 2232) 123 MG/DL HDL CHOLESTEROL (test code = 2220) 46 MG/DL CALC LDL CHOL (test code = 2237) 127 MG/DL RISK RATIO LDL/HDL (test cod e = 2238) 2.76 RATIO Fredi Allen AustinHEMOGLOBIN [id number] 00:00:00* Test Item Value Reference Range Interpretation Comme nts HEMOGLOBIN A1c (test code = 03225) 7.3 % rFedi Allen AustinLIPID [id number] 00:00:00* Test Item Value Reference Range Interpretation Comme nts CHOLESTEROL (test code = 2210) 196 MG/DL TRIGLYCERIDES (test code = 2232) 123 MG/DL HDL CHOLESTEROL (test code = 2220) 46 MG/DL CALC LDL CHOL (test code = 2237) 127 MG/DL RISK RATIO LDL/HDL (test cod e = 2238) 2.76 RATIO Fredi Allen AustinHEMOGLOBIN [id number] 00:00:00* Test Item Value Reference Range Interpretation Comme nts HEMOGLOBIN A1c (test code = 48156) 7.3 % Fredi Allen AustinLIPID [id number] 00:00:00* Test Item Value Reference Range Interpretation Comme nts CHOLESTEROL (test code = 2210) 196 MG/DL TRIGLYCERIDES (test code = 2232) 123 MG/DL HDL CHOLESTEROL (test code = 2220) 46 MG/DL CALC LDL CHOL (test code = 2237) 127 MG/DL RISK RATIO LDL/HDL (test cod e = 2238) 2.76 RATIO Fredi Allen AustinHEMOGLOBIN [id number] 00:00:00* Test Item Value Reference Range Interpretation Comme nts HEMOGLOBIN A1c (test code = 20875) 7.3 % Fredi Allen AustinLIPID [id number] 00:00:00* Test Item Value Reference Range Interpretation Comme nts CHOLESTEROL (test code = 2210) 196 MG/DL TRIGLYCERIDES (test code = 2232) 123 MG/DL HDL CHOLESTEROL (test code = 2220) 46 MG/DL CALC LDL CHOL (test code = 2237) 127 MG/DL RISK RATIO LDL/HDL (test cod e = 2238) 2.76 RATIO Fredi Allen AustinHEMOGLOBIN [id number] 00:00:00* Test Item Value Reference Range Interpretation Comme nts HEMOGLOBIN A1c (test code = 72955) 7.3 % Fredi Allen AustinLIPID [id number] 00:00:00* Test Item Value Reference Range Interpretation Comme nts CHOLESTEROL (test code = 2210) 196 MG/DL TRIGLYCERIDES (test code = 2232) 123 MG/DL HDL CHOLESTEROL (test code = 2220) 46 MG/DL CALC LDL CHOL (test code = 2237) 127 MG/DL RISK RATIO LDL/HDL (test cod e = 2238) 2.76 RATIO Fredi Allen AustinHEMOGLOBIN [id number] 00:00:00* Test Item Value Reference Range Interpretation Comme nts HEMOGLOBIN A1c (test code = 92160) 7.3 % Fredi Allen AustinLIPID [id number] 00:00:00* Test Item Value Reference Range Interpretation Comme nts CHOLESTEROL (test code = 2210) 196 MG/DL TRIGLYCERIDES (test code = 2232) 123 MG/DL HDL CHOLESTEROL (test code = 2220) 46 MG/DL CALC LDL CHOL (test code = 2237) 127 MG/DL RISK RATIO LDL/HDL (test cod e = 2238) 2.76 RATIO Fredi Allen AustinHEMOGLOBIN [id number] 00:00:00* Test Item Value Reference Range Interpretation Comme nts HEMOGLOBIN A1c (test code = 28222) 7.3 % Fredi Allen AustinLIPID [id number] 00:00:00* Test Item Value Reference Range Interpretation Comme nts CHOLESTEROL (test code = 2210) 196 MG/DL TRIGLYCERIDES (test code = 2232) 123 MG/DL HDL CHOLESTEROL (test code = 2220) 46 MG/DL CALC LDL CHOL (test code = 2237) 127 MG/DL RISK RATIO LDL/HDL (test cod e = 2238) 2.76 RATIO Fredi MartelHEMOGLOBIN [id number] 00:00:00* Test Item Value Reference Range Interpretation Comme nts HEMOGLOBIN A1c (test code = 55174) 7.3 % LIPID [id number] 00:00:00* Test Item Value Reference Range Interpretation Comme nts CHOLESTEROL (test code = 2210) 196 MG/DL TRIGLYCERIDES (test code = 2232) 123 MG/DL HDL CHOLESTEROL (test code = 2220) 46 MG/DL CALC LDL CHOL (test code = 2237) 127 MG/DL RISK RATIO LDL/HDL (test cod e = 2238) 2.76 RATIO COMPREHENSIVE METABOLIC PANEL [ADDED]2020-05-15 00:00:00* Test Item Value Reference Range Interpretation Comme nts GLUCOSE (test code = 2217) 107 MG/DL BUN (test code = 2208) 16 MG/DL CREATININE (test code = 2214) 1.79 MG/DL eGFR AMER. (test cod e = 89521) 46 ML/MIN/1.73 eGFR NON- AMER. (test code = 36570) 40 ML/MIN/1.73 CALC BUN/CREAT (test code = 2235) 9 RATIO SODIUM (test code = 2231) 144 MEQ/L POTASSIUM (test code = 2228) 4.1 MEQ/L CHLORIDE (test code = 2215) 106 MEQ/L CARBON DIOXIDE (test code = 2206) 26 MEQ/L CALCIUM (test code = 2209) 9.5 MG/DL PROTEIN, TOTAL (test code = 2229) 6.7 G/DL ALBUMIN (test code = 2201) 3.9 G/DL CALC GLOBULIN (test code = 2240) 2.8 G/DL CALC A/G RATIO (test code = 2234) 1.4 RATIO BILIRUBIN, TOTAL (test code = 2207) 0.5 MG/DL ALKALINE PHOSPHATASE (test code = 2204) 50 U/L AST (test code = 2218) 30 U/L ALT (test code = 2219) 35 U/L Fredi HernandezH, THIRD GENERATION [ADDED]2020-05-15 00:00:00* Test Item Value Reference Range Interpretation Comme nts TSH, THIRD GENERATION (test code = 2821) 1.050 UIU/ML Fredi MartelLIPID PANEL [ADDED]2020-05-15 00:00:00* Test Item Value Reference Range Interpretation Comme nts CHOLESTEROL (test code = 2210) 168 MG/DL TRIGLYCERIDES (test code = 2232) 318 MG/DL HDL CHOLESTEROL (test code = 2220) 45 MG/DL CALC LDL CHOL (test code = 2237) 85 MG/DL RISK RATIO LDL/HDL (test cod e = 2238) 1.89 RATIO Fredi MartelHEMOGLOBIN A1c [ADDED]2020-05-15 00:00:00* Test Item Value Reference Range Interpretation Comme nts HEMOGLOBIN A1c (test code = 44151) 7.0 % Fredi MartelCBC W/AUTO DIFF WITH PLATELETS [ADDED]2020-05-15 00:00:00* Test Item Value Reference Range Interpretation Comme nts WBC (test code = 1001) 7.0 K/UL RBC (test code = 1002) 4.34 M/UL HEMOGLOBIN (test code = 1003) 13.3 G/DL HEMATOCRIT (test code = 1004) 38.7 % MCV (test code = 1005) 89.2 fL MCH (test code = 1006) 30.6 PG MCHC (test code = 1007) 34.4 G/DL RDW (test code = 1038) 13.6 % NEUTROPHILS (test code = 1008) 44.4 % LYMPHOCYTES (test code = 1010) 42.1 % MONOCYTES (test code = 1011) 8.5 % EOSINOPHILS (test code = 1012) 4.4 % BASOPHILS (test code = 1013) 0.6 % PLATELET COUNT (test code = 1015) 306 K/UL Fredi Allen DelonteCOMPREHENSIVE METABOLIC PANEL [ADDED]2020-05-15 00:00:00* Test Item Value Reference Range Interpretation Comme nts GLUCOSE (test code = 2217) 107 MG/DL BUN (test code = 220) 16 MG/DL CREATININE (test code = 2214) 1.79 MG/DL eGFR AMER. (test cod e = ) 46 ML/MIN/1.73 eGFR NON- AMER. (test code = ) 40 ML/MIN/1.73 CALC BUN/CREAT (test code = 2235) 9 RATIO SODIUM (test code = 223) 144 MEQ/L POTASSIUM (test code = 2228) 4.1 MEQ/L CHLORIDE (test code = 2215) 106 MEQ/L CARBON DIOXIDE (test code = 2206) 26 MEQ/L CALCIUM (test code = 2209) 9.5 MG/DL PROTEIN, TOTAL (test code = 222) 6.7 G/DL ALBUMIN (test code = 220) 3.9 G/DL CALC GLOBULIN (test code = 2240) 2.8 G/DL CALC A/G RATIO (test code = 2234) 1.4 RATIO BILIRUBIN, TOTAL (test code = 220) 0.5 MG/DL ALKALINE PHOSPHATASE (test code = 2203) 50 U/L AST (test code = 221) 30 U/L ALT (test code = 2219) 35 U/L Fredi MartelTSH, THIRD GENERATION [ADDED]2020-05-15 00:00:00* Test Item Value Reference Range Interpretation Comme peyton TSH, THIRD GENERATION (test code = 2821) 1.050 UIU/ML Fredi Allen DelonteLIPID PANEL [ADDED]2020-05-15 00:00:00* Test Item Value Reference Range Interpretation Comme nts CHOLESTEROL (test code = 2210) 168 MG/DL TRIGLYCERIDES (test code = 2232) 318 MG/DL HDL CHOLESTEROL (test code = 2220) 45 MG/DL CALC LDL CHOL (test code = 2237) 85 MG/DL RISK RATIO LDL/HDL (test cod e = 2238) 1.89 RATIO Fredi Tiffany DelonteHEMOGLOBIN A1c [ADDED]2020-05-15 00:00:00* Test Item Value Reference Range Interpretation Comme [place] HEMOGLOBIN A1c (test code = 12117) 7.0 % Fredi Tiffany DelonteCBC W/AUTO DIFF WITH PLATELETS [ADDED]2020-05-15 00:00:00* Test Item Value Reference Range Interpretation Comme nts WBC (test code = 1001) 7.0 K/UL RBC (test code = 1002) 4.34 M/UL HEMOGLOBIN (test code = 1003) 13.3 G/DL HEMATOCRIT (test code = 1004) 38.7 % MCV (test code = 1005) 89.2 fL MCH (test code = 1006) 30.6 PG MCHC (test code = 1007) 34.4 G/DL RDW (test code = 1038) 13.6 % NEUTROPHILS (test code = 1008) 44.4 % LYMPHOCYTES (test code = 1010) 42.1 % MONOCYTES (test code = 1011) 8.5 % EOSINOPHILS (test code = 1012) 4.4 % BASOPHILS (test code = 1013) 0.6 % PLATELET COUNT (test code = 1015) 306 K/UL Fredi MartelCOMPREHENSIVE METABOLIC PANEL [ADDED]2020-05-15 00:00:00* Test Item Value Reference Range Interpretation Comme nts GLUCOSE (test code = 2217) 107 MG/DL BUN (test code = 2208) 16 MG/DL CREATININE (test code = 2214) 1.79 MG/DL eGFR AMER. (test cod e = 90591) 46 ML/MIN/1.73 eGFR NON- AMER. (test code = 25623) 40 ML/MIN/1.73 CALC BUN/CREAT (test code = 2235) 9 RATIO SODIUM (test code = 2231) 144 MEQ/L POTASSIUM (test code = 2228) 4.1 MEQ/L CHLORIDE (test code = 2215) 106 MEQ/L CARBON DIOXIDE (test code = 2206) 26 MEQ/L CALCIUM (test code = 2209) 9.5 MG/DL PROTEIN, TOTAL (test code = 2229) 6.7 G/DL ALBUMIN (test code = 2201) 3.9 G/DL CALC GLOBULIN (test code = 2240) 2.8 G/DL CALC A/G RATIO (test code = 2234) 1.4 RATIO BILIRUBIN, TOTAL (test code = 2207) 0.5 MG/DL ALKALINE PHOSPHATASE (test code = 2204) 50 U/L AST (test code = 2218) 30 U/L ALT (test code = 2219) 35 U/L Fredi Gutierrez THIRD GENERATION [ADDED]2020-05-15 00:00:00* Test Item Value Reference Range Interpretation Comme nts TSH, THIRD GENERATION (test code = 2821) 1.050 UIU/ML Fredi MartelLIPID PANEL [ADDED]2020-05-15 00:00:00* Test Item Value Reference Range Interpretation Comme nts CHOLESTEROL (test code = 2210) 168 MG/DL TRIGLYCERIDES (test code = 2232) 318 MG/DL HDL CHOLESTEROL (test code = 2220) 45 MG/DL CALC LDL CHOL (test code = 2237) 85 MG/DL RISK RATIO LDL/HDL (test cod e = 2238) 1.89 RATIO Fredi MartelHEMOGLOBIN A1c [ADDED]2020-05-15 00:00:00* Test Item Value Reference Range Interpretation Comme nts HEMOGLOBIN A1c (test code = 02189) 7.0 % Fredi MartelCBC W/AUTO DIFF WITH PLATELETS [ADDED]2020-05-15 00:00:00* Test Item Value Reference Range Interpretation Comme nts WBC (test code = 1001) 7.0 K/UL RBC (test code = 1002) 4.34 M/UL HEMOGLOBIN (test code = 1003) 13.3 G/DL HEMATOCRIT (test code = 1004) 38.7 % MCV (test code = 1005) 89.2 fL MCH (test code = 1006) 30.6 PG MCHC (test code = 1007) 34.4 G/DL RDW (test code = 1038) 13.6 % NEUTROPHILS (test code = 1008) 44.4 % LYMPHOCYTES (test code = 1010) 42.1 % MONOCYTES (test code = 1011) 8.5 % EOSINOPHILS (test code = 1012) 4.4 % BASOPHILS (test code = 1013) 0.6 % PLATELET COUNT (test code = 1015) 306 K/UL Fredi Allen DelonteCOMPREHENSIVE METABOLIC PANEL [ADDED]2020-05-15 00:00:00* Test Item Value Reference Range Interpretation Comme nts GLUCOSE (test code = 2217) 107 MG/DL BUN (test code = 2208) 16 MG/DL CREATININE (test code = 2214) 1.79 MG/DL eGFR AMER. (test cod e = 77943) 46 ML/MIN/1.73 eGFR NON- AMER. (test code = 09866) 40 ML/MIN/1.73 CALC BUN/CREAT (test code = 2235) 9 RATIO SODIUM (test code = 2231) 144 MEQ/L POTASSIUM (test code = 2228) 4.1 MEQ/L CHLORIDE (test code = 2215) 106 MEQ/L CARBON DIOXIDE (test code = 2206) 26 MEQ/L CALCIUM (test code = 2209) 9.5 MG/DL PROTEIN, TOTAL (test code = 2229) 6.7 G/DL ALBUMIN (test code = 2201) 3.9 G/DL CALC GLOBULIN (test code = 2240) 2.8 G/DL CALC A/G RATIO (test code = 2234) 1.4 RATIO BILIRUBIN, TOTAL (test code = 2207) 0.5 MG/DL ALKALINE PHOSPHATASE (test code = 220) 50 U/L AST (test code = 221) 30 U/L ALT (test code = 2219) 35 U/L Fredi MartelTSH, THIRD GENERATION [ADDED]2020-05-15 00:00:00* Test Item Value Reference Range Interpretation Comme nts TSH, THIRD GENERATION (test code = 2821) 1.050 UIU/ML Fredi MartelLIPID PANEL [ADDED]2020-05-15 00:00:00* Test Item Value Reference Range Interpretation Comme nts CHOLESTEROL (test code = 2210) 168 MG/DL TRIGLYCERIDES (test code = 2232) 318 MG/DL HDL CHOLESTEROL (test code = 2220) 45 MG/DL CALC LDL CHOL (test code = 2237) 85 MG/DL RISK RATIO LDL/HDL (test cod e = 2238) 1.89 RATIO Fredi MartelHEMOGLOBIN A1c [ADDED]2020-05-15 00:00:00* Test Item Value Reference Range Interpretation Comme nts HEMOGLOBIN A1c (test code = 11201) 7.0 % Fredi Tiffany DelonteCBC W/AUTO DIFF WITH PLATELETS [ADDED]2020-05-15 00:00:00* Test Item Value Reference Range Interpretation Comme nts WBC (test code = 1001) 7.0 K/UL RBC (test code = 1002) 4.34 M/UL HEMOGLOBIN (test code = 1003) 13.3 G/DL HEMATOCRIT (test code = 1004) 38.7 % MCV (test code = 1005) 89.2 fL MCH (test code = 1006) 30.6 PG MCHC (test code = 1007) 34.4 G/DL RDW (test code = 1038) 13.6 % NEUTROPHILS (test code = 1008) 44.4 % LYMPHOCYTES (test code = 1010) 42.1 % MONOCYTES (test code = 1011) 8.5 % EOSINOPHILS (test code = 1012) 4.4 % BASOPHILS (test code = 1013) 0.6 % PLATELET COUNT (test code = 1015) 306 K/UL Fredi Allen DelonteCOMPREHENSIVE METABOLIC PANEL [ADDED]2020-05-15 00:00:00* Test Item Value Reference Range Interpretation Comme nts GLUCOSE (test code = 2217) 107 MG/DL BUN (test code = 2208) 16 MG/DL CREATININE (test code = 2214) 1.79 MG/DL eGFR AMER. (test cod e = 84177) 46 ML/MIN/1.73 eGFR NON- AMER. (test code = 51255) 40 ML/MIN/1.73 CALC BUN/CREAT (test code = 2235) 9 RATIO SODIUM (test code = 2231) 144 MEQ/L POTASSIUM (test code = 2228) 4.1 MEQ/L CHLORIDE (test code = 2215) 106 MEQ/L CARBON DIOXIDE (test code = 2206) 26 MEQ/L CALCIUM (test code = 2209) 9.5 MG/DL PROTEIN, TOTAL (test code = 2229) 6.7 G/DL ALBUMIN (test code = 2201) 3.9 G/DL CALC GLOBULIN (test code = 2240) 2.8 G/DL CALC A/G RATIO (test code = 2234) 1.4 RATIO BILIRUBIN, TOTAL (test code = 2207) 0.5 MG/DL ALKALINE PHOSPHATASE (test code = 2204) 50 U/L AST (test code = 2218) 30 U/L ALT (test code = 2219) 35 U/L Fredi Tiffany DelonteTSH, THIRD GENERATION [ADDED]2020-05-15 00:00:00* Test Item Value Reference Range Interpretation Comme nts TSH, THIRD GENERATION (test code = 2821) 1.050 UIU/ML Fredi Tiffany DelonteLIPID PANEL [ADDED]2020-05-15 00:00:00* Test Item Value Reference Range Interpretation Comme nts CHOLESTEROL (test code = 2210) 168 MG/DL TRIGLYCERIDES (test code = 2232) 318 MG/DL HDL CHOLESTEROL (test code = 2220) 45 MG/DL CALC LDL CHOL (test code = 2237) 85 MG/DL RISK RATIO LDL/HDL (test cod e = 2238) 1.89 RATIO Fredi MartelHEMOGLOBIN A1c [ADDED]2020-05-15 00:00:00* Test Item Value Reference Range Interpretation Comme nts HEMOGLOBIN A1c (test code = 28734) 7.0 % Fredi MartelCBC W/AUTO DIFF WITH PLATELETS [ADDED]2020-05-15 00:00:00* Test Item Value Reference Range Interpretation Comme nts WBC (test code = 1001) 7.0 K/UL RBC (test code = 1002) 4.34 M/UL HEMOGLOBIN (test code = 1003) 13.3 G/DL HEMATOCRIT (test code = 1004) 38.7 % MCV (test code = 1005) 89.2 fL MCH (test code = 1006) 30.6 PG MCHC (test code = 1007) 34.4 G/DL RDW (test code = 1038) 13.6 % NEUTROPHILS (test code = 1008) 44.4 % LYMPHOCYTES (test code = 1010) 42.1 % MONOCYTES (test code = 1011) 8.5 % EOSINOPHILS (test code = 1012) 4.4 % BASOPHILS (test code = 1013) 0.6 % PLATELET COUNT (test code = 1015) 306 K/UL Fredi MartelCOMPREHENSIVE METABOLIC PANEL [ADDED]2020-05-15 00:00:00* Test Item Value Reference Range Interpretation Comme nts GLUCOSE (test code = 2217) 107 MG/DL BUN (test code = 2208) 16 MG/DL CREATININE (test code = 2214) 1.79 MG/DL eGFR AMER. (test cod e = 17030) 46 ML/MIN/1.73 eGFR NON- AMER. (test code = 61298) 40 ML/MIN/1.73 CALC BUN/CREAT (test code = 2235) 9 RATIO SODIUM (test code = 2231) 144 MEQ/L POTASSIUM (test code = 2228) 4.1 MEQ/L CHLORIDE (test code = 2215) 106 MEQ/L CARBON DIOXIDE (test code = 2206) 26 MEQ/L CALCIUM (test code = 2209) 9.5 MG/DL PROTEIN, TOTAL (test code = 2229) 6.7 G/DL ALBUMIN (test code = 2201) 3.9 G/DL CALC GLOBULIN (test code = 2240) 2.8 G/DL CALC A/G RATIO (test code = 2234) 1.4 RATIO BILIRUBIN, TOTAL (test code = 2207) 0.5 MG/DL ALKALINE PHOSPHATASE (test code = 2204) 50 U/L AST (test code = 2218) 30 U/L ALT (test code = 2219) 35 U/L Fredi MartelTSH, THIRD GENERATION [ADDED]2020-05-15 00:00:00* Test Item Value Reference Range Interpretation Comme nts TSH, THIRD GENERATION (test code = 2821) 1.050 UIU/ML Fredi MartelLIPID PANEL [ADDED]2020-05-15 00:00:00* Test Item Value Reference Range Interpretation Comme nts CHOLESTEROL (test code = 2210) 168 MG/DL TRIGLYCERIDES (test code = 2232) 318 MG/DL HDL CHOLESTEROL (test code = 2220) 45 MG/DL CALC LDL CHOL (test code = 2237) 85 MG/DL RISK RATIO LDL/HDL (test cod e = 2238) 1.89 RATIO Fredi MartelHEMOGLOBIN A1c [ADDED]2020-05-15 00:00:00* Test Item Value Reference Range Interpretation Comme [place] HEMOGLOBIN A1c (test code = 20412) 7.0 % Fredi MartelCBC W/AUTO DIFF WITH PLATELETS [ADDED]2020-05-15 00:00:00* Test Item Value Reference Range Interpretation Comme nts WBC (test code = 1001) 7.0 K/UL RBC (test code = 1002) 4.34 M/UL HEMOGLOBIN (test code = 1003) 13.3 G/DL HEMATOCRIT (test code = 1004) 38.7 % MCV (test code = 1005) 89.2 fL MCH (test code = 1006) 30.6 PG MCHC (test code = 1007) 34.4 G/DL RDW (test code = 1038) 13.6 % NEUTROPHILS (test code = 1008) 44.4 % LYMPHOCYTES (test code = 1010) 42.1 % MONOCYTES (test code = 1011) 8.5 % EOSINOPHILS (test code = 1012) 4.4 % BASOPHILS (test code = 1013) 0.6 % PLATELET COUNT (test code = 1015) 306 K/UL Fredi MartelCOMPREHENSIVE METABOLIC PANEL [ADDED]2020-05-15 00:00:00* Test Item Value Reference Range Interpretation Comme nts GLUCOSE (test code = 2217) 107 MG/DL BUN (test code = 2208) 16 MG/DL CREATININE (test code = 2214) 1.79 MG/DL eGFR AMER. (test cod e = 93343) 46 ML/MIN/1.73 eGFR NON- AMER. (test code = 34792) 40 ML/MIN/1.73 CALC BUN/CREAT (test code = 2235) 9 RATIO SODIUM (test code = 2231) 144 MEQ/L POTASSIUM (test code = 2228) 4.1 MEQ/L CHLORIDE (test code = 2215) 106 MEQ/L CARBON DIOXIDE (test code = 2206) 26 MEQ/L CALCIUM (test code = 2209) 9.5 MG/DL PROTEIN, TOTAL (test code = 2229) 6.7 G/DL ALBUMIN (test code = 2201) 3.9 G/DL CALC GLOBULIN (test code = 2240) 2.8 G/DL CALC A/G RATIO (test code = 2234) 1.4 RATIO BILIRUBIN, TOTAL (test code = 2207) 0.5 MG/DL ALKALINE PHOSPHATASE (test code = 2204) 50 U/L AST (test code = 2218) 30 U/L ALT (test code = 2219) 35 U/L Fredi Allen DelonteTSH, THIRD GENERATION [ADDED]2020-05-15 00:00:00* Test Item Value Reference Range Interpretation Comme nts TSH, THIRD GENERATION (test code = 2821) 1.050 UIU/ML Fredi MartelLIPID PANEL [ADDED]2020-05-15 00:00:00* Test Item Value Reference Range Interpretation Comme nts CHOLESTEROL (test code = 2210) 168 MG/DL TRIGLYCERIDES (test code = 2232) 318 MG/DL HDL CHOLESTEROL (test code = 2220) 45 MG/DL CALC LDL CHOL (test code = 2237) 85 MG/DL RISK RATIO LDL/HDL (test cod e = 2238) 1.89 RATIO Fredi Allen DelonteHEMOGLOBIN A1c [ADDED]2020-05-15 00:00:00* Test Item Value Reference Range Interpretation Comme nts HEMOGLOBIN A1c (test code = 50573) 7.0 % Fredi MartelCBC W/AUTO DIFF WITH PLATELETS [ADDED]2020-05-15 00:00:00* Test Item Value Reference Range Interpretation Comme nts WBC (test code = 1001) 7.0 K/UL RBC (test code = 1002) 4.34 M/UL HEMOGLOBIN (test code = 1003) 13.3 G/DL HEMATOCRIT (test code = 1004) 38.7 % MCV (test code = 1005) 89.2 fL MCH (test code = 1006) 30.6 PG MCHC (test code = 1007) 34.4 G/DL RDW (test code = 1038) 13.6 % NEUTROPHILS (test code = 1008) 44.4 % LYMPHOCYTES (test code = 1010) 42.1 % MONOCYTES (test code = 1011) 8.5 % EOSINOPHILS (test code = 1012) 4.4 % BASOPHILS (test code = 1013) 0.6 % PLATELET COUNT (test code = 1015) 306 K/UL Fredi MartelCOMPREHENSIVE METABOLIC PANEL [ADDED]2020-05-15 00:00:00* Test Item Value Reference Range Interpretation Comme nts GLUCOSE (test code = 2217) 107 MG/DL BUN (test code = 2208) 16 MG/DL CREATININE (test code = 2214) 1.79 MG/DL eGFR AMER. (test cod e = 14648) 46 ML/MIN/1.73 eGFR NON- AMER. (test code = 74662) 40 ML/MIN/1.73 CALC BUN/CREAT (test code = 2235) 9 RATIO SODIUM (test code = 2231) 144 MEQ/L POTASSIUM (test code = 2228) 4.1 MEQ/L CHLORIDE (test code = 2215) 106 MEQ/L CARBON DIOXIDE (test code = 2206) 26 MEQ/L CALCIUM (test code = 2209) 9.5 MG/DL PROTEIN, TOTAL (test code = 2229) 6.7 G/DL ALBUMIN (test code = 2201) 3.9 G/DL CALC GLOBULIN (test code = 2240) 2.8 G/DL CALC A/G RATIO (test code = 2234) 1.4 RATIO BILIRUBIN, TOTAL (test code = 2207) 0.5 MG/DL ALKALINE PHOSPHATASE (test code = 2204) 50 U/L AST (test code = 2218) 30 U/L ALT (test code = 2219) 35 U/L Fredi HernandezH, THIRD GENERATION [ADDED]2020-05-15 00:00:00* Test Item Value Reference Range Interpretation Comme nts TSH, THIRD GENERATION (test code = 2821) 1.050 UIU/ML Fredi MartelLIPID PANEL [ADDED]2020-05-15 00:00:00* Test Item Value Reference Range Interpretation Comme nts CHOLESTEROL (test code = 2210) 168 MG/DL TRIGLYCERIDES (test code = 2232) 318 MG/DL HDL CHOLESTEROL (test code = 2220) 45 MG/DL CALC LDL CHOL (test code = 2237) 85 MG/DL RISK RATIO LDL/HDL (test cod e = 2238) 1.89 RATIO Fredi MartelHEMOGLOBIN A1c [ADDED]2020-05-15 00:00:00* Test Item Value Reference Range Interpretation Comme nts HEMOGLOBIN A1c (test code = 46250) 7.0 % Fredi MartelCBC W/AUTO DIFF WITH PLATELETS [ADDED]2020-05-15 00:00:00* Test Item Value Reference Range Interpretation Comme nts WBC (test code = 1001) 7.0 K/UL RBC (test code = 1002) 4.34 M/UL HEMOGLOBIN (test code = 1003) 13.3 G/DL HEMATOCRIT (test code = 1004) 38.7 % MCV (test code = 1005) 89.2 fL MCH (test code = 1006) 30.6 PG MCHC (test code = 1007) 34.4 G/DL RDW (test code = 1038) 13.6 % NEUTROPHILS (test code = 1008) 44.4 % LYMPHOCYTES (test code = 1010) 42.1 % MONOCYTES (test code = 1011) 8.5 % EOSINOPHILS (test code = 1012) 4.4 % BASOPHILS (test code = 1013) 0.6 % PLATELET COUNT (test code = 1015) 306 K/UL Fredi Allen DelonteCOMPREHENSIVE METABOLIC PANEL [ADDED]2020-05-15 00:00:00* Test Item Value Reference Range Interpretation Comme nts GLUCOSE (test code = 2217) 107 MG/DL BUN (test code = 2207) 16 MG/DL CREATININE (test code = 2214) 1.79 MG/DL eGFR AMER. (test cod e = ) 46 ML/MIN/1.73 eGFR NON- AMER. (test code = ) 40 ML/MIN/1.73 CALC BUN/CREAT (test code = 2235) 9 RATIO SODIUM (test code = 223) 144 MEQ/L POTASSIUM (test code = 2228) 4.1 MEQ/L CHLORIDE (test code = 2215) 106 MEQ/L CARBON DIOXIDE (test code = 2206) 26 MEQ/L CALCIUM (test code = 2209) 9.5 MG/DL PROTEIN, TOTAL (test code = 2228) 6.7 G/DL ALBUMIN (test code = 2200) 3.9 G/DL CALC GLOBULIN (test code = 2240) 2.8 G/DL CALC A/G RATIO (test code = 2234) 1.4 RATIO BILIRUBIN, TOTAL (test code = 2206) 0.5 MG/DL ALKALINE PHOSPHATASE (test code = 2203) 50 U/L AST (test code = 2218) 30 U/L ALT (test code = 2219) 35 U/L Fredi Tiffany MartelTSH, THIRD GENERATION [ADDED]2020-05-15 00:00:00* Test Item Value Reference Range Interpretation Comme nts TSH, THIRD GENERATION (test code = 2821) 1.050 UIU/ML Fredisherrie MartelLIPID PANEL [ADDED]2020-05-15 00:00:00* Test Item Value Reference Range Interpretation Comme nts CHOLESTEROL (test code = 2210) 168 MG/DL TRIGLYCERIDES (test code = 2232) 318 MG/DL HDL CHOLESTEROL (test code = 2220) 45 MG/DL CALC LDL CHOL (test code = 2237) 85 MG/DL RISK RATIO LDL/HDL (test cod e = 2238) 1.89 RATIO Fredi Tiffany DelonetHEMOGLOBIN A1c [ADDED]2020-05-15 00:00:00* Test Item Value Reference Range Interpretation Comme nts HEMOGLOBIN A1c (test code = 80086) 7.0 % Fredi MartelCBC W/AUTO DIFF WITH PLATELETS [ADDED]2020-05-15 00:00:00* Test Item Value Reference Range Interpretation Comme nts WBC (test code = 1001) 7.0 K/UL RBC (test code = 1002) 4.34 M/UL HEMOGLOBIN (test code = 1003) 13.3 G/DL HEMATOCRIT (test code = 1004) 38.7 % MCV (test code = 1005) 89.2 fL MCH (test code = 1006) 30.6 PG MCHC (test code = 1007) 34.4 G/DL RDW (test code = 1038) 13.6 % NEUTROPHILS (test code = 1008) 44.4 % LYMPHOCYTES (test code = 1010) 42.1 % MONOCYTES (test code = 1011) 8.5 % EOSINOPHILS (test code = 1012) 4.4 % BASOPHILS (test code = 1013) 0.6 % PLATELET COUNT (test code = 1015) 306 K/UL [facility]O DIFF WITH PLATELETS [ADDED]2020-05-15 00:00:00* Test Item Value Reference Range Interpretation Comme nts WBC (test code = 1001) 7.0 K/UL RBC (test code = 1002) 4.34 M/UL HEMOGLOBIN (test code = 1003) 13.3 G/DL HEMATOCRIT (test code = 1004) 38.7 % MCV (test code = 1005) 89.2 fL MCH (test code = 1006) 30.6 PG MCHC (test code = 1007) 34.4 G/DL RDW (test code = 1038) 13.6 % NEUTROPHILS (test code = 1008) 44.4 % LYMPHOCYTES (test code = 1010) 42.1 % MONOCYTES (test code = 1011) 8.5 % EOSINOPHILS (test code = 1012) 4.4 % BASOPHILS (test code = 1013) 0.6 % PLATELET COUNT (test code = 1015) 306 K/UL COMPREHENSIVE METABOLIC PANEL [ADDED]2020-05-15 00:00:00* Test Item Value Reference Range Interpretation Comme nts GLUCOSE (test code = 2217) 107 MG/DL BUN (test code = 2208) 16 MG/DL CREATININE (test code = 2214) 1.79 MG/DL eGFR AMER. (test cod e = 66566) 46 ML/MIN/1.73 eGFR NON- AMER. (test code = 69756) 40 ML/MIN/1.73 CALC BUN/CREAT (test code = 2235) 9 RATIO SODIUM (test code = 2231) 144 MEQ/L POTASSIUM (test code = 2228) 4.1 MEQ/L CHLORIDE (test code = 2215) 106 MEQ/L CARBON DIOXIDE (test code = 2206) 26 MEQ/L CALCIUM (test code = 2209) 9.5 MG/DL PROTEIN, TOTAL (test code = 2229) 6.7 G/DL ALBUMIN (test code = 2201) 3.9 G/DL CALC GLOBULIN (test code = 2240) 2.8 G/DL CALC A/G RATIO (test code = 2234) 1.4 RATIO BILIRUBIN, TOTAL (test code = 2207) 0.5 MG/DL ALKALINE PHOSPHATASE (test code = 2204) 50 U/L AST (test code = 2218) 30 U/L ALT (test code = 2219) 35 U/L TSH, THIRD GENERATION [ADDED]2020-05-15 00:00:00* Test Item Value Reference Range Interpretation Comme nts TSH, THIRD GENERATION (test code = 2821) 1.050 UIU/ML LIPID PANEL [ADDED]2020-05-15 00:00:00* Test Item Value Reference Range Interpretation Comme nts CHOLESTEROL (test code = 2210) 168 MG/DL TRIGLYCERIDES (test code = 2232) 318 MG/DL HDL CHOLESTEROL (test code = 2220) 45 MG/DL CALC LDL CHOL (test code = 2237) 85 MG/DL RISK RATIO LDL/HDL (test cod e = 2238) 1.89 RATIO HEMOGLOBIN A1c [ADDED]2020-05-15 00:00:00* Test Item Value Reference Range Interpretation Comme nts HEMOGLOBIN A1c (test code = 81073) 7.0 % SURGICAL PATHOLOGY [id number] 00:00:00* Test Item Value Reference Range Interpretation Comme nts DIAGNOSIS: (test code = 8200) (NOTE) COMMENTS: (test code = 8205) (NOTE) MICROSCOPIC DESCRIPTION: (te st code = 8210) (NOTE) CLINICAL DATA: (test code = 8401) (NOTE) GROSS DESCRIPTION: (test code = 8220) (NOTE) PATHOLOGIST: (test code = 8250) (NOTE) DISCLAIMER (test code = 10235) (NOTE) CPT: (test code = 8400) (NOTE) Fredi Yanez, [id number] 00:00:00* Test Item Value Reference Range Interpretation Comme nts CULTURE, ROUTINE (test code = 33225) SPECIMEN NUMBER: [id number] Fredi GoldbergLTURE, [id number] 00:00:00* Test Item Value Reference Range Interpretation Comme nts CULTURE, ROUTINE (test code = 26247) SPECIMEN NUMBER: [id number] Fredi Allen [facility] PATHOLOG[facility] [id number] 00:00:00* Test Item Value Reference Range Interpretation Comme nts DIAGNOSIS: (test code = 8200) (NOTE) COMMENTS: (test code = 8205) (NOTE) MICROSCOPIC DESCRIPTION: (te st code = 8210) (NOTE) CLINICAL DATA: (test code = 8401) (NOTE) GROSS DESCRIPTION: (test code = 8220) (NOTE) PATHOLOGIST: (test code = 8250) (NOTE) DISCLAIMER (test code = 87587) (NOTE) CPT: (test code = 8400) (NOTE) Fredi Yanez, [id number] 00:00:00* Test Item Value Reference Range Interpretation Comme nts CULTURE, ROUTINE (test code = 84902) SPECIMEN NUMBER: [id number] Fredi Allen [facility] PATH[facility] [id number] 00:00:00* Test Item Value Reference Range Interpretation Comme nts DIAGNOSIS: (test code = 8200) (NOTE) COMMENTS: (test code = 8205) (NOTE) MICROSCOPIC DESCRIPTION: (te st code = 8210) (NOTE) CLINICAL DATA: (test code = 8401) (NOTE) GROSS DESCRIPTION: (test code = 8220) (NOTE) PATHOLOGIST: (test code = 8250) (NOTE) DISCLAIMER (test code = 73097) (NOTE) CPT: (test code = 8400) (NOTE) Fredi GoldbergLTURE, [id number] 00:00:00* Test Item Value Reference Range Interpretation Comme nts CULTURE, ROUTINE (test code = 87192) SPECIMEN NUMBER: [id number] Fredi Allen [facility] PATHOLOG[facility] [id number] 00:00:00* Test Item Value Reference Range Interpretation Comme nts DIAGNOSIS: (test code = 8200) (NOTE) COMMENTS: (test code = 8205) (NOTE) MICROSCOPIC DESCRIPTION: (te st code = 8210) (NOTE) CLINICAL DATA: (test code = 8401) (NOTE) GROSS DESCRIPTION: (test code = 8220) (NOTE) PATHOLOGIST: (test code = 8250) (NOTE) DISCLAIMER (test code = 20604) (NOTE) CPT: (test code = 8400) (NOTE) Fredi GoldbergLTURE, [id number] 00:00:00* Test Item Value Reference Range Interpretation Comme nts CULTURE, ROUTINE (test code = 91455) SPECIMEN NUMBER: [id number] Fredi Allen [facility] PATHOLOG[facility] [id number] 00:00:00* Test Item Value Reference Range Interpretation Comme nts DIAGNOSIS: (test code = 8200) (NOTE) COMMENTS: (test code = 8205) (NOTE) MICROSCOPIC DESCRIPTION: (te st code = 8210) (NOTE) CLINICAL DATA: (test code = 8401) (NOTE) GROSS DESCRIPTION: (test code = 8220) (NOTE) PATHOLOGIST: (test code = 8250) (NOTE) DISCLAIMER (test code = 34212) (NOTE) CPT: (test code = 8400) (NOTE) Fredi GoldbergLTURE, [id number] 00:00:00* Test Item Value Reference Range Interpretation Comme nts CULTURE, ROUTINE (test code = 35404) SPECIMEN NUMBER: [id number] Fredi Allen [facility] [id number] 00:00:00* Test Item Value Reference Range Interpretation Comme nts DIAGNOSIS: (test code = 8200) (NOTE) COMMENTS: (test code = 8205) (NOTE) MICROSCOPIC DESCRIPTION: (te st code = 8210) (NOTE) CLINICAL DATA: (test code = 8401) (NOTE) GROSS DESCRIPTION: (test code = 8220) (NOTE) PATHOLOGIST: (test code = 8250) (NOTE) DISCLAIMER (test code = 04415) (NOTE) CPT: (test code = 8400) (NOTE) Fredi Allen AustinSURGICAL PATHOLOGY [id number] 00:00:00* Test Item Value Reference Range Interpretation Comme nts DIAGNOSIS: (test code = 8200) (NOTE) COMMENTS: (test code = 8205) (NOTE) MICROSCOPIC DESCRIPTION: (te st code = 8210) (NOTE) CLINICAL DATA: (test code = 8401) (NOTE) GROSS DESCRIPTION: (test code = 8220) (NOTE) PATHOLOGIST: (test code = 8250) (NOTE) DISCLAIMER (test code = 44924) (NOTE) CPT: (test code = 8400) (NOTE) Fredi GoldbergLTURE, [id number] 00:00:00* Test Item Value Reference Range Interpretation Comme nts CULTURE, ROUTINE (test code = 73219) SPECIMEN NUMBER: [id number] Fredi MartelCULTURE, [id number] 00:00:00* Test Item Value Reference Range Interpretation Comme nts CULTURE, ROUTINE (test code = 00728) SPECIMEN NUMBER: [id number] Fredi Allen AustinSURGICAL PATHOLOGY [id number] 00:00:00* Test Item Value Reference Range Interpretation Comme nts DIAGNOSIS: (test code = 8200) (NOTE) COMMENTS: (test code = 8205) (NOTE) MICROSCOPIC DESCRIPTION: (te st code = 8210) (NOTE) CLINICAL DATA: (test code = 8401) (NOTE) GROSS DESCRIPTION: (test code = 8220) (NOTE) PATHOLOGIST: (test code = 8250) (NOTE) DISCLAIMER (test code = 07201) (NOTE) CPT: (test code = 8400) (NOTE) Fredi Allen AustinSURGICAL PATHOLOGY [id number] 00:00:00* Test Item Value Reference Range Interpretation Comme nts DIAGNOSIS: (test code = 8200) (NOTE) COMMENTS: (test code = 8205) (NOTE) MICROSCOPIC DESCRIPTION: (te st code = 8210) (NOTE) CLINICAL DATA: (test code = 8401) (NOTE) GROSS DESCRIPTION: (test code = 8220) (NOTE) PATHOLOGIST: (test code = 8250) (NOTE) DISCLAIMER (test code = 81673) (NOTE) CPT: (test code = 8400) (NOTE) Fredi MartelCULTURE, [id number] 00:00:00* Test Item Value Reference Range Interpretation Comme nts CULTURE, ROUTINE (test code = 85604) SPECIMEN NUMBER: [id number] Fredi Allen AustinSURGICAL PATHOLOGY [id number] 00:00:00* Test Item Value Reference Range Interpretation Comme nts DIAGNOSIS: (test code = 8200) (NOTE) COMMENTS: (test code = 8205) (NOTE) MICROSCOPIC DESCRIPTION: (te st code = 8210) (NOTE) CLINICAL DATA: (test code = 8401) (NOTE) GROSS DESCRIPTION: (test code = 8220) (NOTE) PATHOLOGIST: (test code = 8250) (NOTE) DISCLAIMER (test code = 83177) (NOTE) CPT: (test code = 8400) (NOTE) CULTURE, [id number] 00:00:00* Test Item Value Reference Range Interpretation Comme nts CULTURE, ROUTINE (test code = 57067) SPECIMEN NUMBER: [id number] HEMOGLOBIN [id number] 00:00:00* Test Item Value Reference Range Interpretation Comme nts HEMOGLOBIN A1c (test code = 31020) 12.7 % Fredi F AustinHEMOGLOBIN [id number] 00:00:00* Test Item Value Reference Range Interpretation Comme nts HEMOGLOBIN A1c (test code = 40320) 12.7 % Fredi F AustinHEMOGLOBIN [id number] 00:00:00* Test Item Value Reference Range Interpretation Comme nts HEMOGLOBIN A1c (test code = 69287) 12.7 % Fredi F AustinHEMOGLOBIN [id number] 00:00:00* Test Item Value Reference Range Interpretation Comme nts HEMOGLOBIN A1c (test code = 84538) 12.7 % Fredi F AustinHEMOGLOBIN [id number] 00:00:00* Test Item Value Reference Range Interpretation Comme nts HEMOGLOBIN A1c (test code = 83148) 12.7 % Fredi F AustinHEMOGLOBIN [id number] 00:00:00* Test Item Value Reference Range Interpretation Comme nts HEMOGLOBIN A1c (test code = 95096) 12.7 % Fredi F AustinHEMOGLOBIN [id number] 00:00:00* Test Item Value Reference Range Interpretation Comme nts HEMOGLOBIN A1c (test code = 54913) 12.7 % Fredi F AustinHEMOGLOBIN [id number] 00:00:00* Test Item Value Reference Range Interpretation Comme nts HEMOGLOBIN A1c (test code = 92005) 12.7 % Fredi F AustinHEMOGLOBIN [id number] 00:00:00* Test Item Value Reference Range Interpretation Comme nts HEMOGLOBIN A1c (test code = 00719) 12.7 % Fredi MartelHEMOGLOBIN [id number] 00:00:00* Test Item Value Reference Range Interpretation Comme nts HEMOGLOBIN A1c (test code = 79160) 12.7 % Notes Date/Time Note Provider Source [facility]i [facility]25[facility]02[facility]26 [facility]2024-12-20 00:00:00 [facility]2024-10-14 00:00:00 [facility]2024-10-02 00:00:00 [facility]2024-08-01 00:00:00 [facility]2024-04-18 00:00:00 [facility]
[2024-09-14] MEDS ORDERED: NA CHLORIDE 0.9% 2,000 ML ONE (14:59)
[2024-09-14 15:22] LABS: Absolute Basophils 0.1 K/uL (0-0.5); Absolute Lymphocytes (CBC) 1.7 K/uL (0.7-4.9); Absolute Monocytes 0.9 K/uL (0.1-1.3); Absolute Neutrophil 6.9 K/uL (1.8-8.0); Basophils % 0.6 % (0-1.3); Hematocrit 62.7 % (39.6-49.0); Hemoglobin 20.2 g/dL (13.6-17.9); Lymphocytes % 17.3 % (15.3-44.8); MCH 29.3 pg (27.0-35.0); MCHC 32.3 g/dL (32.0-36.0); MCV 90.9 fL (80-100); MPV 9.1 fL (7.6-11.3); Monocytes % 9.6 % (3.3-12.3); Neutrophils % 72.5 % (41.7-73.7); Nucleated Red Blood Cells % 0.4 % (0-0); Platelets 309 thou/uL (152-406)
[2024-09-14 15:31] LABS: PT Prothrombin Time 12.7 SECONDS (10-13.0); PTT, Activated Partial Thromb 38.1 SECONDS (27.2-37.4); Protime INR 1.12
[2024-09-14] MEDS ORDERED: NA CHLORIDE 0.9% 250 ML ONE (15:34)
[2024-09-14 15:41] LABS: Albumin 4.9 g/dL (3.4-5.0); Albumin/Globulin Ratio 0.8 (1.1-1.8); Anion Gap 22.1 mEq/L (5.0-15.0); Bilirubin Total 0.6 mg/dL (0.2-1.0); Globulin 6.5 g/dL (2.3-3.5); Potassium 4.1 mEq/L (3.5-5.1); Protein, Total 11.4 g/dL (6.4-8.2)
[2024-09-14] MEDS ORDERED: NA CHLORIDE 0.9% 1,000 ML ONE (16:45)
--- NOTE | 2024-09-14 17:23 | EDPHYS ---
Physician Documentation [facility] Name: Tl Blood Age: 64 yrs Sex: Male : 1960 Arrival Date: 09/14/2024 Time: 14:01 Bed IW9 Private MD: ED Physician Dmitry Ryan HPI: 09/14 14:30 This 64 yrs old Black Male presents to ER via Unassigned with complaints of sb4 Vomiting/Diarrhea, General Weakness. 14:30 The patient presents to the emergency department with nausea, vomiting, diarrhea, sb4 abdominal pain. Onset: The symptoms/episode began/occurred 3 day(s) ago. Possible causes: unknown. The symptoms are aggravated by nothing. The symptoms are alleviated by nothing. Associated signs and symptoms: Pertinent negatives: fever, GI bleeding. . Historical: - Allergies: 14:31 No Known Allergies; cm10 - PMHx: 14:31 Hypertensive disorder; Diabetes mellitus; cm10 - Immunization history:: Adult Immunizations up to date. - Infectious Disease History:: Denies. - Social history:: Smoking status: Patient reports the use of cigarette tobacco products, denies chronic smoking, but will smoke occasionally. ROS: 14:30 Constitutional: Negative for fever, chills, and weight loss, sb4 14:30 Abdomen/GI: Positive for abdominal pain, nausea, vomiting, and diarrhea, 14:30 Neuro: Positive for weakness, 14:30 All other systems are negative, Exam: 14:30 Head/Face: Normocephalic, atraumatic. Eyes: Extra-ocular motions intact. Periorbital sb4 areas with no swelling, redness, or edema. Cardiovascular: Regular rate and rhythm with a normal S1 and S2. Respiratory: No increased work of breathing, no retractions or nasal flaring. Abdomen/GI: Soft, non-tender, no distension. Skin: Warm, dry with normal turgor. Normal color with no rashes, no lesions, and no evidence of cellulitis. 14:30 Constitutional: The patient appears alert, awake, obviously ill, 14:30 ENT: Mouth: Oral mucosa: dry, Vital Signs: 14:30 BP 75 / 64; Pulse 103; Resp 19; Pulse Ox 99% on R/A; Weight 78.02 kg; Height 5 ft. 7 cm10 in. ; Pain 7/10; 14:34 BP 104 / 77; Pulse 85; Resp 16; Pulse Ox 95% on R/A; db 15:05 BP 92 / 68; Pulse 99; Resp 18; Pulse Ox 95% ; db 15:15 Temp 97.6(O); db 15:30 BP 102 / 75; Pulse 93; Resp 17; Pulse Ox 96% ; db 16:30 BP 131 / 80; Pulse 96; Resp 23; Pulse Ox 96% ; db 17:30 BP 140 / 82; Pulse 99; Resp 22; Pulse Ox 97% on R/A; db 18:30 BP 137 / 83; Pulse 95; Resp 16; Pulse Ox 96% on R/A; db 19:30 BP 133 / 83; Pulse 98; Resp 17; Pulse Ox 97% on R/A; rg5 20:30 BP 132 / 80; Pulse 96; Resp 18; Pulse Ox 99% on R/A; rg5 21:08 BP 131 / 82; Pulse 97; Resp 18; Temp 98(O); Pulse Ox 99% on R/A; Pain 0/10; rg5 14:30 Body Mass Index 26.94 (78.02 kg, 170.18 cm) cm10 14:30 Pain Scale: Adult cm10 21:08 Pain Scale: Adult rg5 MDM: 14:11 Medical Screening Exam initiated sb4 14:30 Differential diagnosis: Nonspecific abd pain, gastritis, cholecystitis, pancreatitis, sb4 appendicitis, diverticulitis, viral gastroenteritis, gastroenteritis. 17:35 Data reviewed: vital signs, nurses notes, lab test result(s), EKG, radiologic studies, sb4 and as a result, I will admit patient. Consideration of Admission/Observation Patient was admitted/placed on observation. Management of patient was discussed with the following: Strapper Operator: Dr. Hernandez, nephrology on-call, recommended an additional liter bolus of normal saline and starting patient on half NS with 150 mEq of bicarb at 150 and of course admission to the hospital for further monitoring. Historians other than the Patient: Spouse/Significant Other: . Care significantly affected by the following chronic conditions: Diabetes, Hypertension. Counseling: I had a detailed discussion with the patient and/or guardian regarding the historical points, exam findings, and any diagnostic results supporting the discharge/admit diagnosis, the presence of at least one elevated blood pressure reading (>120/80) during this emergency department visit, lab results, radiology results, the need for further work-up and treatment in the hospital. 09/14 14:29 Order name: Blood Culture Adult (2) sb4 09/14 14:29 Order name: CBC with Diff; Complete Time: 15:46 sb4 09/14 14:29 Order name: CMP; Complete Time: 15:46 sb4 09/14 14:29 Order name: Lactate w/ 2H reflex if indic.; Complete Time: 15:46 sb4 09/14 14:29 Order name: Protime (+inr); Complete Time: 15:31 sb4 09/14 14:29 Order name: Ptt, Activated; Complete Time: 15:31 sb4 09/14 14:29 Order name: Lipase; Complete Time: 15:46 sb4 09/14 15:21 Order name: Glucose, Ancillary Testing; Complete Time: 15:22 EDUT 09/14 15:48 Order name: Ghost Lactate-NO COLLECT Timer; Complete Time: 17:46 EDUT 09/14 16:52 Order name: Lactate w/ 2H reflex if indic.; Complete Time: 18:16 sb4 09/14 17:22 Order name: UA Rfx Jesse Cult if indicated; Complete Time: 20:49 sb4 09/14 18:19 Order name: Ghost Lactate-NO COLLECT Timer; Complete Time: 20:17 EDMS 09/14 18:36 Order name: ABG Arterial Blood Gas EDMS 09/14 18:36 Order name: Urine Drug Screen EDMS 09/14 18:39 Order name: BMP; Complete Time: 20:06 sb4 09/14 18:39 Order name: ABG; Complete Time: 19:02 sb4 09/14 18:39 Order name: Basic Metabolic Panel EDMS 09/14 18:39 Order name: Basic Metabolic Panel EDMS 09/14 18:39 Order name: Basic Metabolic Panel EDMS 09/14 18:39 Order name: Basic Metabolic Panel EDMS 09/14 18:39 Order name: Calcium Level EDMS 09/14 18:39 Order name: Calcium Level EDMS 09/14 18:39 Order name: Calcium Level EDMS 09/14 18:39 Order name: Calcium Level EDMS 09/14 18:39 Order name: CBC with Automated Diff EDMS 09/14 18:39 Order name: CBC with Automated Diff EDMS 09/14 18:39 Order name: CBC with Automated Diff EDMS 09/14 18:39 Order name: CBC with Automated Diff EDMS 09/14 18:39 Order name: Magnesium EDMS 09/14 18:39 Order name: Magnesium EDMS 09/14 18:39 Order name: Magnesium EDMS 09/14 18:39 Order name: Magnesium EDMS 09/14 18:39 Order name: Phosphorus EDMS 09/14 18:39 Order name: Phosphorus EDMS 09/14 18:39 Order name: Phosphorus EDMS 09/14 18:39 Order name: Phosphorus EDMS 09/14 20:11 Order name: Glucose, Ancillary Testing; Complete Time: 20:11 EDMS 09/14 15:47 Order name: CT Abd/Pelvis - Without Contrast sb4 09/14 14:29 Order name: Accucheck; Complete Time: 15:18 sb4 09/14 14:29 Order name: Cardiac monitoring; Complete Time: 15:18 sb4 09/14 14:29 Order name: EKG - Nurse/Tech; Complete Time: 15:18 sb4 09/14 14:29 Order name: IV Saline Lock - Large Bore; Complete Time: 15:17 sb4 09/14 14:29 Order name: Labs collected and sent; Complete Time: 15:17 sb4 09/14 14:29 Order name: O2 Per Protocol; Complete Time: 15:18 sb4 09/14 14:29 Order name: O2 Sat Monitoring; Complete Time: 15:18 sb4 09/14 14:29 Order name: Vital Signs; Complete Time: 15:18 sb4 EC:08 Rate is 100 beats/min. Rhythm is regular, Normal Sinus Rhythm. WA interval is normal at sb4 152 msec. QRS interval is normal at 84 msec. QT interval is normal at [address] changes noted. Clinical impression: No evidence of ischemia. Interpreted by me. Reviewed by me. Administered Medications: 15:15 Drug: NS 0.9% IV (30 ml/kg) 30 ml/kg IV at bolus once; Sepsis Protocol; to be given as db a bolus over 90 minutes Route: IV; Rate: bolus; Site: right antecubital; 18:33 Follow up: Response: No adverse reaction; IV Status: Completed infusion; IV Intake: db 2245.2ml ; TOTAL OF 3 LITERS GIVEN 16:52 Drug: NS 0.9% IV 1000 ml IV at 1 bolus Per protocol; to be given as a bolus over 60 db minutes Route: IV; Rate: 1 bolus; Site: right antecubital; 18:32 Follow up: Response: No adverse reaction; IV Status: Completed infusion; IV Intake: db 1000ml 17:48 Dru.45% NS 1000mL + Sodium Bicarbonate 150 mEq/L - (NS IV 0.45 % 1000 ml, Sodium db Bicarbonate IVP 150 mEq) IV at 150 ml/hr continuous Route: IV; Rate: 150 ml/hr; Site: right antecubital; 21:00 Drug: Insulin Drip - (Insulin Regular Human IVP 100 units, NS 0.9% IV 100 ml) IV at rg5 calculated rate continuous; Standard concentration 1unit/ml; Dose for DKA is 0.1 units/kg/hr {Co-Signature: br2 (Suzan Bauer RN).} Route: IV; Rate: calculated rate; Site: right antecubital; Point of Care Testing: Blood Glucose: 15:10 Blood Glucose: 403 mg/dL; db Ranges: Critical Glucose Levels:Adult <50 mg/dl or >400 mg/dl <40 mg/dl or >180 mg/dl Disposition: 09/15 16:27 Co-signature as Attending Physician, Dmitry Ryan MD I agree with the assessment and anastacio plan of care. Disposition Summary: 09/14/24 17:22 Hospitalization Ordered Notes: Hospitalization Status: Inpatient Admission sb4 Condition: Serious sb4 Problem: new sb4 Symptoms: are unchanged sb4 Bed/Room Type: Standard sb4 Provider: Josh Hicks(09/14/24 18:52) sb4 Location: Intensive Care Unit(09/14/24 20:26) cm10 Room Assignment: 3-(09/14/24 20:26) [facility] Diagnosis - Acute kidney failure, unspecified sb4 - Type 2 diabetes mellitus with ketoacidosis without coma sb4 Forms: - Medication Reconciliation Form sb4 - SBAR form sb4 - Leadership Thank You Letter sb4 Critical care time excluding procedures: 09/14 18:52 Critical care time: Bedside Care: 20 minutes, Consultation: 15 minutes, Family sb4 Intervention: 5 minutes. Total time: 40 minutes Signatures: Dispatcher [employer] EDMS Dmitry Ryan MD MD cha Leal, Jahala, RN RN jl7 Yolanda Drummond, RN RN Lotus Ac PABrennonC PA-C sb4 Mamie Miguel, RN RN cm10 Miguelito Joshi, RN RN rg5 Suzan Bauer RN br2 Corrections: (The following items were deleted from the chart) 14:30 14:30 BLOOD CULTURE*+BA.LAB.BRZ ordered. EDMS EDMS 14:30 14:30 CBC+H.LAB.BRZ ordered. EDMS EDMS 14:30 14:30 COMPREHENSIVE METABOLIC PANEL+C.LAB.BRZ ordered. EDMS EDMS 14:30 14:30 LACTATE+C.LAB.BRZ ordered. EDMS EDMS 14:30 14:30 PROTIME (+INR)+COAG.LAB.BRZ ordered. EDMS EDMS 14:30 14:30 PTT, ACTIVATED+COAG.LAB.BRZ ordered. EDMS EDMS 14:30 14:30 LIPASE+C.LAB.BRZ ordered. EDMS EDMS 14:30 14:30 Abdomen Pelvis W Con+CT.RAD.BRZ ordered. EDMS EDMS 14:31 14:31 PMHx: Headache; cm10 cm10 18:52 17:22 Robin Contreras sb4 sb4 18:52 17:22 Telemetry/MedSurg (Inpatient) sb4 sb4 18:52 17:22 sb4 sb4 18:53 18:52 Intensive Care Unit sb4 jl7 18:53 18:52 sb4 jl7 20:26 18:53 [facility] ER HOLD jl7 cm10 20:26 18:53 ERHOLD- jl7 cm10
--- NOTE | 2024-09-14 17:23 | ER ---
Nurse's Notes [facility] Name: Tl Blood Age: 64 yrs Sex: Male : 1960 Arrival Date: 09/14/2024 Time: 14:01 Bed IW9 Private MD: Diagnosis: Acute kidney failure, unspecified;Type 2 diabetes mellitus with ketoacidosis without coma Presentation: 09/14 14:30 Chief complaint: Patient states: Vomiting, diarrhea and Abdominal pain onset 3 days cm10 ago. Coronavirus screen: Client denies travel out of the [place] in the last 14 days. Ebola Screen: Patient denies travel to an Ebola-affected area in the 21 days before illness onset. Initial Sepsis Screen: Does the patient meet any 2 criteria? HR > 90 bpm. Does the patient have a suspected source of infection? No. Patient's initial sepsis screen is negative. Risk Assessment: Do you want to hurt yourself or someone else? Patient reports no desire to harm self or others. Onset of symptoms was September 14, 2024. 14:30 Method Of Arrival: Wheelchair cm10 14:30 Acuity: PARISA 2 cm10 Triage Assessment: 14:31 General: Appears uncomfortable, ill, Behavior is calm, cooperative. Neuro: No deficits cm10 noted. Level of Consciousness is awake, alert, obeys commands, Oriented to person, place, time, situation, Appropriate for age. Respiratory: No deficits noted. Airway is patent Respiratory effort is even, unlabored, Respiratory pattern is regular, symmetrical. Historical: - Allergies: 14:31 No Known Allergies; cm10 - PMHx: 14:31 Hypertensive disorder; Diabetes mellitus; cm10 - Immunization history:: Adult Immunizations up to date. - Infectious Disease History:: Denies. - Social history:: Smoking status: Patient reports the use of cigarette tobacco products, denies chronic smoking, but will smoke occasionally. Screenin:16 [facility] ED Fall Risk Assessment (Adult) History of falling in the last 3 months, db including since admission No falls in past 3 months (0 pts) Confusion or Disorientation No (0 pts) Intoxicated or Sedated No (0 pts) Impaired Gait No (0 pts) Mobility Assist Device Used No (0 pt) Altered Elimination No (0 pt) Score/Fall Risk Level 0 - 2 = Low Risk Oriented to surroundings, Maintained a safe environment. Abuse screen: Denies threats or abuse. Denies injuries from another. Nutritional screening: No deficits noted. Tuberculosis screening: No symptoms or risk factors identified. Assessment: 15:16 Reassessment: Patient appears in no apparent distress at this time. Patient and/or db family updated on plan of care and expected duration. Pain level reassessed. Patient is alert, oriented x 3, equal unlabored respirations, skin warm/dry/pink. General: Appears in no apparent distress. comfortable, Behavior is calm, cooperative. Pain: Complains of pain in abdomen. Neuro: Level of Consciousness is awake, alert, obeys commands, Oriented to person, place, time, situation. Respiratory: Airway is patent Respiratory effort is even, unlabored, Respiratory pattern is regular, symmetrical. GI: Abdomen is non-distended, Reports diarrhea, nausea, vomiting. 16:15 Reassessment: Patient appears in no apparent distress at this time. Patient and/or db family updated on plan of care and expected duration. Pain level reassessed. Patient is alert, oriented x 3, equal unlabored respirations, skin warm/dry/pink. General: Appears in no apparent distress. comfortable, Behavior is calm, cooperative. 17:15 Reassessment: Patient appears in no apparent distress at this time. Patient and/or db family updated on plan of care and expected duration. Pain level reassessed. Patient is alert, oriented x 3, equal unlabored respirations, skin warm/dry/pink. PENDING PHARMACY FOR SODIUM BICARB DRIP. 18:32 Reassessment: Patient appears in no apparent distress at this time. Patient and/or db family updated on plan of care and expected duration. Pain level reassessed. Patient is alert, oriented x 3, equal unlabored respirations, skin warm/dry/pink. 19:00 General: Appears in no apparent distress. comfortable, Behavior is calm, cooperative, rg5 appropriate for age. Pain: Denies pain. Neuro: Level of Consciousness is awake, alert, obeys commands, Oriented to person, place, time, situation. Cardiovascular: Denies chest pain, Patient's skin is warm and dry. Respiratory: Airway is patent Respiratory effort is even, unlabored, Respiratory pattern is regular, symmetrical. GI: Abdomen is round non-distended. : No signs and/or symptoms were reported regarding the genitourinary system. EENT: No deficits noted. Derm: No deficits noted. Skin is intact, Skin is dry, Skin is normal. Musculoskeletal: Circulation, motion, and sensation intact. Range of motion: intact in all extremities. Vital Signs: 14:30 BP 75 / 64; Pulse 103; Resp 19; Pulse Ox 99% on R/A; Weight 78.02 kg; Height 5 ft. 7 cm10 in. ; Pain 7/10; 14:34 BP 104 / 77; Pulse 85; Resp 16; Pulse Ox 95% on R/A; db 15:05 BP 92 / 68; Pulse 99; Resp 18; Pulse Ox 95% ; db 15:15 Temp 97.6(O); db 15:30 BP 102 / 75; Pulse 93; Resp 17; Pulse Ox 96% ; db 16:30 BP 131 / 80; Pulse 96; Resp 23; Pulse Ox 96% ; db 17:30 BP 140 / 82; Pulse 99; Resp 22; Pulse Ox 97% on R/A; db 18:30 BP 137 / 83; Pulse 95; Resp 16; Pulse Ox 96% on R/A; db 19:30 BP 133 / 83; Pulse 98; Resp 17; Pulse Ox 97% on R/A; rg5 20:30 BP 132 / 80; Pulse 96; Resp 18; Pulse Ox 99% on R/A; rg5 21:08 BP 131 / 82; Pulse 97; Resp 18; Temp 98(O); Pulse Ox 99% on R/A; Pain 0/10; rg5 14:30 Body Mass Index 26.94 (78.02 kg, 170.18 cm) cm10 14:30 Pain Scale: Adult cm10 21:08 Pain Scale: Adult rg5 ED Course: 14:07 Patient arrived in ED. im 14:08 Lotus Francis PA-C is PHCP. sb4 14:08 Dmitry Ryan MD is Attending Physician. sb4 14:31 Triage completed. cm10 14:31 Arm band placed on right wrist. Patient placed in an exam room, on a stretcher. cm10 14:52 Yolanda Drummond, RN is Primary Nurse. db 14:56 Radiology exam delayed due to lab results not completed at this time. (BUN/Creatinine) nj IV insertion attempt and/or patient not having appropriate IV at this time. 15:12 Initial lab(s) drawn, by me, sent to lab. First set of blood cultures drawn by me. cc6 15:17 Patient has correct armband on for positive identification. Bed in low position. Call db light in reach. Side rails up X 1. Client placed on continuous cardiac and pulse oximetry monitoring. NIBP monitoring applied. washer machine on. Pulse ox on. NIBP on. Warm blanket given. Pillow given. 15:17 EKG done. db 15:17 Blood Culture Adult (2) Sent. cc6 15:17 CBC with Diff Sent. cc6 15:17 CMP Sent. cc6 15:17 Lactate w/ 2H reflex if indic. Sent. cc6 15:17 Protime (+inr) Sent. cc6 15:17 Ptt, Activated Sent. cc6 15:18 Inserted saline lock: 20 gauge in right antecubital area, using aseptic technique. cc6 Blood collected. Flushed with 10 mL NS. 16:16 CT Abd/Pelvis - Without Contrast In Process Unspecified. EDMS 17:22 Robin Contreras is Hospitalizing Provider. sb4 18:52 Josh Hicks MD is Hospitalizing Provider. sb4 19:00 No provider procedures requiring assistance completed. rg5 19:00 Patient admitted, IV remains in place. intact, No redness/swelling at site. rg5 19:10 Miguelito Joshi, RN is Primary Nurse. rg5 20:00 Inserted saline lock: 22 gauge in right forearm, using aseptic technique. Blood rg5 collected. Flushed with 10 mL NS. 23:58 Provided Education on: needs for admit. rg5 Administered Medications: 15:15 Drug: NS 0.9% IV (30 ml/kg) 30 ml/kg IV at bolus once; Sepsis Protocol; to be given as db a bolus over 90 minutes Route: IV; Rate: bolus; Site: right antecubital; 18:33 Follow up: Response: No adverse reaction; IV Status: Completed infusion; IV Intake: db 2245.2ml ; TOTAL OF 3 LITERS GIVEN 16:52 Drug: NS 0.9% IV 1000 ml IV at 1 bolus Per protocol; to be given as a bolus over 60 db minutes Route: IV; Rate: 1 bolus; Site: right antecubital; 18:32 Follow up: Response: No adverse reaction; IV Status: Completed infusion; IV Intake: db 1000ml 17:48 Dru.45% NS 1000mL + Sodium Bicarbonate 150 mEq/L - (NS IV 0.45 % 1000 ml, Sodium db Bicarbonate IVP 150 mEq) IV at 150 ml/hr continuous Route: IV; Rate: 150 ml/hr; Site: right antecubital; 21:00 Drug: Insulin Drip - (Insulin Regular Human IVP 100 units, NS 0.9% IV 100 ml) IV at rg5 calculated rate continuous; Standard concentration 1unit/ml; Dose for DKA is 0.1 units/kg/hr {Co-Signature: br2 (Suzan Bauer RN).} Route: IV; Rate: calculated rate; Site: right antecubital; Medication: 15:17 VIS not applicable for this client. db Point of Care Testing: Blood Glucose: 15:10 Blood Glucose: 403 mg/dL; db Ranges: Intake: 18:32 IV: 1000ml; Total: 1000ml. db 18:33 IV: 2245ml; Total: 3245ml. db Outcome: 17:22 Decision to Hospitalize by Provider. sb4 19:00 Admitted to ER Hold. [facility]. rg5 19:00 Condition: stable 19:00 Instructed on the need for admit, 21:41 Patient left the ED. rg5 Signatures: Dispatcher [employer] Lokesh Pearce Danielle RN RN db Lotus Francis PA-C PAElizabeth sb4 [place] Clarissa, RN RN cm10 Miguelito Joshi RN RN rg5 Sangeetha Dale cc6 Suzan Bauer RN br2 Corrections: (The following items were deleted from the chart) 14:31 14:31 PMHx: Headache; cm10 cm10
[2024-09-14] MEDS: NACHLORIDE 0.45% 1,000 ML with NA BICARB 8.4% 150 MEQ IV SCH (18:00)
[2024-09-14] MEDS ORDERED: ONDANSETRON 4 MG/2 ML VIAL IV PRN (18:34)
[2024-09-14] MEDS ORDERED: GLUCAGON 1 MG/VIAL IM PRN (18:38)
[2024-09-14] MEDS ORDERED: D50W 25 GM/50 ML SYRINGE IV PRN (18:38)
--- NOTE | 2024-09-14 18:40 | P.HP ---
Certification for Inpatient Patient admitted to: Inpatient With expected LOS: >2 Midnights Practitioner: I am a practitioner with admitting privileges, knowledge of patient current condition, hospital course, and medical plan of care. Services: Services provided to patient in accordance with Admission requirements found in Title 42 Section 412.3 of the Code of Federal Regulations Patient History Date of Service: 09/14/24 Reason for admission: Generalized weakness History of Present Illness: 64 yrs old Male with past medical history of hypertension, diabetes, presents to ER with generalized weakness associated with nausea and vomiting and diarrhea which has been going on for the last 3 days and has been progressively getting worse and was brought to the ER. Patient denies any chest pain or shortness of breath. Denies any fever or chills. No sick contacts. No recent travel. Symptoms started insidiously. Patient is a poor historian hence most of the history is obtained from the chart review and also talking to the ER physician. Patient denies any hematemesis or melena. Patient was assessed in the ER and was found to be having acute kidney injury and DKA and was admitted for further management. He also had a CT of the abdomen pelvis which was negative for any acute changes Allergies No Known Allergies Allergy (Verified 09/14/24 21:56) Home medications list reviewed: Yes - Past Medical/Surgical History Past Medical History: Reviewed- Non-Contributory -: Hypertension, diabetes Past Surgical History: Reviewed- Non-Contributory - Family History Family History: Reviewed- Non-Contributory - Family History Father History Unknown: Yes Mother History Unknown: Yes Sister Notes: of covid Brother Notes: agent orange - Social History Smoking Status: Current every day smoker Review of Systems 10-point ROS is otherwise unremarkable Physical Examination - Vital Signs Temperature: 97.2 F Blood Pressure: 88/62 Pulse: 102 Respirations: 18 Pulse Ox (%): 94 - Physical Exam General: Alert, In no apparent distress, Oriented x3 HEENT: Atraumatic, Normocephalic Neck: Supple Respiratory: Clear to auscultation bilaterally, Normal air movement Cardiovascular: Regular rate/rhythm, Normal S1 S2 Capillary refill: <2 Seconds Gastrointestinal: Soft and benign, W/out hepatosplenomegaly Musculoskeletal: No clubbing, No swelling Integumentary: No rashes Neurological: Normal gait, Normal speech, Normal strength at 5/5 x4 extr, Cranial nerves 3-12 intact, Normal reflexes 2+ Lymphatics: No axilla or inguinal lymphadenopathy - Studies Laboratory Data (last 24 hrs) 09/14/24 09/14/24 09/14/24 15:12 15:12 15:12 WBC 9.50 Hgb 20.2 H Hct 62.7 H Plt Count 309 PT 12.7 INR 1.12 APTT 38.1 H Sodium 126 L Potassium 4.1 BUN 69 H Creatinine 7.95 H Glucose 348 H Total Bilirubin 0.6 AST 34 ALT 98 H Alkaline Phosphatase 101 Lipase 454 H Assessment and Plan - Plan Diabetic ketoacidosis Admit to ICU Started on insulin drip Anion gap monitored ABG findings noted IV hydration aggressively Oxygen supplementation Will monitor BMP every 4 hours Accu-Chek q. hourly Electrolytes monitor and replace accordingly Acute kidney injury Monitor renal parameters Electrolytes monitor and replace accordingly Dehydration Polycythemia IV hydration Monitor CBC daily Lactic acidosis Antibiotic empirically Obtain cultures Change antibiotic as per sensitivity GI/DVT prophylaxis Advanced directive full code Discharge Plan: Home Plan to discharge in: 48 Hours - Advance Directives Does patient have a Living Will: No Does patient have a Durable POA for Healthcare: No - Code Status/Comfort Care Code Status: Full Code Time Spent Managing Pts Care (In Minutes): 54
[2024-09-14 18:56] LABS: Blood Gas Oxyhemoglobin 92.4 % (94-97); Blood O2 Saturation 94.6 % (92-98.5)
[2024-09-14 18:57] LABS: Arterial Blood Carboxyhemoglob 0.2 % (0-1.5); Blood Gas THB 17.6 g/dl (12-18)
[2024-09-14] MEDS: NA CHLORIDE 0.9% 1,000 ML IV SCH (19:00)
[2024-09-14 20:01] LABS: Anion Gap 18.2 mEq/L (5.0-15.0); Potassium 4.2 mEq/L (3.5-5.1)
--- NOTE | 2024-09-14 20:27 | RAD REPORT ---
EXAMINATION: CT CT ABDOMEN PELVIS WITHOUT IV CONTRAST CLINICAL INDICATION: Male, 64 years old. ABD PAIN TECHNIQUE: CT abdomen and pelvis was performed, without IV contrast, as per department protocol. Axia l, sagittal and coronal reconstructions were obtained. One or more of the following dose reduction techniques were used: Automated exposure control, adjustment of the mA and kV according to the patien t size, and iterative reconstruction. Unless otherwise specified, incidental findings do not require dedicated imaging follow-up. COMPARISON: No prior exam. FINDINGS: The lack of intravenous contrast limits the sensitivity of this exam for evaluation of solid visceral organs, vascular structures, and retroperitoneum. LOWER CHEST: The visualized lung bases are clear. LIVER: Normal in size and contour. No focal lesion. BILIARY SYSTEM: No suspicious abnormalities. SPLEEN: Normal size. No focal lesion. PANCREAS: No mass, ductal dilation, or shaniqua-pancreatic fluid. ADRENALS: Normal; no mass. KIDNEYS AND URETERS: Normal size and contour. No hydronephrosis. URINARY BLADDER: Decompressed limiting evaluation. GASTROINTESTINAL TRACT: No evidence of bowel obstruction, significant free fluid, free air or abscess . Distal colonic diverticulosis without evidence of acute diverticulitis. APPENDIX: Normal appendix. LYMPH NODES: No lymphadenopathy. MUSCULOSKELETAL: No acute or suspicious osseous abnormality. ADDITIONAL FINDINGS: Bilateral inguinal hernias containing fat, larger on the right, containing a few calcifications. Small umbilical hernia containing fat as well.. IMPRESSION: No acute or concerning abnormalities in the abdomen or pelvis, with evaluation limited by lack of IV contrast. Incidental findings as above. Electronically signed by: En Brady MD 09/14/2024 05:33 PM CDT Due to temporary technical issues with the [employer] reporting system, reports are being vito d by the in-house radiologist without review as a courtesy to ensure prompt reporting the interpreting radiologist is fully responsible for the content of the report. Transcribed Date/Time: 09/14/2024 8:26 PM
[2024-09-14 20:46] LABS: Specific Gravity 1.013 (1.005-1.030); Sqamous Epithelial <5 /HPF (None Seen); Urine Bacteria <20 /HPF (<20); Urine Bilirubin NEGATIVE (Negative); Urine Blood 3+ (Negative); Urine Clarity Extremely Turbid (Clear); Urine Color Yellow (Yellow); Urine Crystals Unidentified Few /HPF (None Seen); Urine Culture Reflex Order REFLEXED; Urine Glucose 2+ (Negative); Urine Ketones NEGATIVE (Negative); Urine Microscopic Reflex YN ORDER UMIC; Urine Mucus Slight /HPF (None Seen); Urine Nitrite NEGATIVE (Negative); Urine Protein 2+ (Negative); Urine RBC <5 /HPF (None Seen); Urine Urobilinogen Normal (Normal); Urine WBC 20-50 /HPF (<5); Urine WBC Clump Few /HPF (None Seen); Urine Yeast (Budding) Few /HPF (None Seen); Urine pH 5.5 (5.0-7.0)
[2024-09-14] MEDS: INSULIN REGULAR, HUMAN 100 UNIT in NA CHLORIDE 0.9% 100 ML IV SCH (21:30)
[2024-09-14 22:01] VITALS: BMI 26.0
[2024-09-14] MEDS: HEPARIN 5000 UNIT/ML 1 ML VIAL SQ SCH (22:18)
[2024-09-14] MEDS: D5 0.45 NS 1,000 ML IV SCH (22:19)
[2024-09-15 00:55] LABS: Anion Gap 18.5 mEq/L (5.0-15.0); Potassium 3.5 mEq/L (3.5-5.1)
[2024-09-15] MEDS: CEFTRIAXONE 1,000 MG in NA CHLORIDE 0.9% 50 ML IVPB SCH (01:06)
[2024-09-15] MEDS: METRONIDAZOLE 500mg IVPB 500 MG/100 ML BAG IV SCH (01:06)
[2024-09-15 03:33] LABS: Barbiturates NEGATIVE (NEGATIVE); Benzodiazepines NEGATIVE (NEGATIVE); Cocaine NEGATIVE (NEGATIVE); METHAMPHETAM NEGATIVE (NEGATIVE); Methadone NEGATIVE (NEGATIVE); Opiates NEGATIVE (NEGATIVE); Phencyclidine NEGATIVE (NEGATIVE); THC Cannibis POSITIVE (NEGATIVE)
[2024-09-15 05:13] LABS: Anion Gap 16.2 mEq/L (5.0-15.0); Potassium 3.2 mEq/L (3.5-5.1)
[2024-09-15] MEDS: D5W 1,000 ML with NA BICARB 8.4% 100 MEQ IV SCH ×2 (06:00→07:46)
[2024-09-15 06:22] LABS: Absolute Basophils 0.1 K/uL (0-0.5); Absolute Monocytes 1.1 K/uL (0.1-1.3); Absolute Neutrophil 5.6 K/uL (1.8-8.0); Basophils % 0.7 % (0-1.3); Eosinophils % 0.4 % (0-4.4); Hematocrit 45.6 % (39.6-49.0); Hemoglobin 15.5 g/dL (13.6-17.9); Lymphocytes % 30.5 % (15.3-44.8); MCH 30.2 pg (27.0-35.0); MCHC 34.1 g/dL (32.0-36.0); MCV 88.5 fL (80-100); MPV 8.6 fL (7.6-11.3); Monocytes % 11.6 % (3.3-12.3); Neutrophils % 56.8 % (41.7-73.7); Nucleated Red Blood Cells % 0.1 % (0-0); Platelets 224 thou/uL (152-406); RBC Red Blood Cell Count 5.15 M/uL (4.33-5.43); Red Cell Distribution Width 14.2 % (12.1-15.2)
[2024-09-15 06:39] LABS: Magnesium 1.9 mg/dL (1.6-2.4); Phosphorus 8.2 mg/dL (2.5-4.9)
[2024-09-15] MEDS: CALCIUM GLUCONATE 1 GM IVPB 1 GM/50 ML BAG IV ONE (06:41)
[2024-09-15] MEDS: KCL 20 MEQ/100 mL IVPB 20 MEQ/100 ML BAG IV ONE (06:44)
[2024-09-15] MEDS ORDERED: D10W 125 ML IV PRN (12:33)
[2024-09-15] MEDS ORDERED: GLUCAGON 1 MG/VIAL IM PRN (12:33)
--- NOTE | 2024-09-15 13:21 | P.PN ---
Subjective Date of Service: 09/15/24 Chief Complaint: Generalized weakness Patient reports multiple bouts of diarrhea prior to presentation. He denies any abdominal pain Serum creatinine trended down from yesterday. Patient blood sugar readings have been only mildly elevated. Physical Examination - Vital Signs Temperature: 99 F Blood Pressure: 123/75 Pulse: 75 Respirations: 20 Pulse Ox (%): 99 - Studies Laboratory Data (last 24 hrs) 09/14/24 09/14/24 09/14/24 15:12 15:12 15:12 WBC 9.50 Hgb 20.2 H Hct 62.7 H Plt Count 309 PT 12.7 INR 1.12 APTT 38.1 H Sodium 126 L Potassium 4.1 BUN 69 H Creatinine 7.95 H Glucose 348 H Total Bilirubin 0.6 AST 34 ALT 98 H Alkaline Phosphatase 101 Lipase 454 H Assessment And Plan - Plan Physical examination General: Alert and oriented x3, NAD, HEENT: Conjunctiva not pale, anicteric sclera Neck: Supple, no elevated JVD Heart: Heart sounds 1 and 2 normal, regular rhythm, normal rate, no pedal edema Lungs: Clear to auscultation bilaterally, adequate breath sounds bilaterally, no rhonchi or crackles. Abdomen: Soft, nondistended, nontender, normal bowel sounds. Extremities: No tenderness, no deformity Skin: Normal skin turgor, no rash, no nodules or ulcers. Neuro: No focal motor deficit. Normal speech. Psychiatry: Normal mood, no agitation. Diagnosis Metabolic acidosis REGAN Dehydration Lactic acidosis Hypocalcemia Enterocolitis Diabetes mellitus type 2. REGAN Metabolic acidosis Hypocalcemia Patient's baseline creatinine is unknown His history suggest severe dehydration from profuse diarrhea Associated polycythemia secondary to hemoconcentration. Serum creatinine responded to IV hydration. Continue IV fluid IV bicarb replacement Nephrology consulted. Patient given IV calcium supplementation. Check PTH, vitamin D and calcitriol levels. No acetone or ketones noted in the UA. Metabolic acidosis is unlikely secondary to DKA. Discontinue insulin drip. Start ADA diet Insulin sliding scale Monitor renal function. Diabetes mellitus type 2 Hyperglycemia Insulin sliding scale Enterocolitis Lactic acidosis Patient reports improvement in her diarrhea IV cefepime and IV Flagy DVT prophylaxis: Heparin SQ Advanced directive: full code .
--- NOTE | 2024-09-15 15:55 | P.OP ---
Preoperative diagnosis: Need for Dialysis Postoperative diagnosis: Need for Dialysis Primary procedure: Placement of RIGHT Femoral Hemodialysis Catheter Secondary procedure: Ultrasound Guidance, microintroducer set used Anesthesia: Local 1% lidocaine Estimated blood loss: <5cc Specimen: None Findings: Dark Non-pulsatile blood returned Complications: None Implants: Mahauker Temporary 12 Fr HD catheter Transferred to: ICU Condition: Serious
[2024-09-15] MEDS: INSULIN REGULAR (HUMAN) 100 UNIT/ML SQ SCH (16:50)
[2024-09-15] MEDS ORDERED: CEFEPIME 1 GM in NA CHLORIDE 0.9% 100 ML IV SCH (21:00)
[2024-09-15] MEDS: NA CHLORIDE 0.9% 1,000 ML IV SCH (21:52)
[2024-09-15 23:23] LABS: Hepatitis B Core IgM Nonreactive (Nonreactive); Hepatitis B surface AG Interp. Nonreactive (Nonreactive)
[2024-09-16 00:01] LABS: Hepatitis B Surface Ab - Quant < 3.10 mIU/mL (<8.0)
[2024-09-16 00:02] LABS: HBsAG Nonreactive Report Report
--- NOTE | 2024-09-16 02:06 | OP ---
Date of Procedure: 09/15/2024 Surgeon: Dhaval Barragan MD, Preoperative Diagnosis: Need for dialysis. Postoperative Diagnosis: Need for dialysis. Procedure Performed: Placement of right femoral uncuffed hemodialysis temporary catheter using ultra sound guidance and microintroducer utilized. Anesthesia: 1% lidocaine utilized without epinephrine. Estimated Blood Loss: 5 cc. Specimen: None. Findings: Dark nonpulsatile blood returned. Complications: None. Implants: Mahurkar temporary 12-Romansh non-tunneled temporary hemodialysis catheter in the right fem oral vein. Disposition: The patient remained in ICU in serious condition throughout the procedure. Procedure In Detail: After informed consent was obtained, the patient was brought to the operating r oom, prepped and draped in the usual sterile fashion. After adequate anesthesia was achieved, I anes thetized the area in the right groin using ultrasound guidance. I cannulated the right femoral vein on first attempt with a microintroducer needle. Micro wire was advanced at this point. A small te incision was made overlying the insertion point after the micro wire was placed. I then placed the introducer sheath. At this point, micro wire was removed. Wire out called at this point. I then pl aced a standard wire through the introducer sheath at this moment. I then proceeded to perform seque ntial dilatation using Seldinger technique, ultimately placed the catheter in the right femoral vein without evidence of complication. The standard wire was removed at this point and called at the seco nd time being out completely. At this point, dark red non-pulsatile blood returned from both ports a nd flushed quite easily. I then packed with heparin at the end of the procedure. Sterile caps were placed. The catheter was locked. At this point, it was secured to the skin using the attached nylon sutures and sterile dressing placed. The patient tolerated the procedure without incident or compli cation and remained in ICU in fair condition/stable condition throughout the procedure. All counts w ere correct at the end of the case. TK/MODL Voice ID: [id number] Report ID: [id number]
[2024-09-16 04:53] LABS: Absolute Lymphocytes (CBC) 2.8 K/uL (0.7-4.9); Absolute Neutrophil 2.9 K/uL (1.8-8.0); Basophils % 0.5 % (0-1.3); Eosinophils % 0.7 % (0-4.4); Hematocrit 40.8 % (39.6-49.0); Hemoglobin 14.2 g/dL (13.6-17.9); Lymphocytes % 41.8 % (15.3-44.8); MCHC 34.8 g/dL (32.0-36.0); MCV 86.1 fL (80-100); MPV 8.9 fL (7.6-11.3); Monocytes % 14.9 % (3.3-12.3); Neutrophils % 42.1 % (41.7-73.7); Nucleated Red Blood Cells % 0.3 % (0-0); Platelets 192 thou/uL (152-406); RBC Red Blood Cell Count 4.73 M/uL (4.33-5.43); Red Cell Distribution Width 14.2 % (12.1-15.2)
[2024-09-16 05:09] LABS: Magnesium 1.9 mg/dL (1.6-2.4)
[2024-09-16 09:02] LABS: C.diff Antigen/Toxin Ag neg : Tox neg (NEG : NEG); CDIFF INTERNAL NEG CONTROL White Background (WHITE BKGD); STOOL CONSISTENCY Liquid/Semi-Solid
[2024-09-16] MEDS: CEFEPIME 1 GM in NA CHLORIDE 0.9% 100 ML IV SCH (09:02)
[2024-09-16 15:27] LABS: Anion Gap 12.9 mEq/L (5.0-15.0); Potassium 2.9 mEq/L (3.5-5.1)
--- NOTE | 2024-09-16 16:53 | P.PN ---
Subjective Date of Service: 09/16/24 Chief Complaint: Generalized weakness Patient reports persistent diarrhea but frequency has decreased. Patient reports he underwent hemodialysis yesterday. Serum creatinine trending down with dialysis. Physical Examination - Vital Signs Temperature: 98.1 F Blood Pressure: 107/64 Pulse: 50 Respirations: 18 Pulse Ox (%): 98 Assessment And Plan - Plan Physical examination General: Alert and oriented x3, NAD, Neck: Supple, no elevated JVD Heart: Heart sounds 1 and 2 normal, regular rhythm, normal rate, no pedal edema Lungs: Clear to auscultation bilaterally, adequate breath sounds bilaterally, no rhonchi or crackles. Abdomen: Soft, nondistended, nontender, normal bowel sounds. Extremities: No tenderness, no deformity Skin: Normal skin turgor, no rash, no nodules or ulcers. Neuro: No focal motor deficit. Normal speech. Psychiatry: Normal mood, no agitation. Diagnosis Metabolic acidosis REGAN Dehydration Lactic acidosis Hypocalcemia Enterocolitis Diabetes mellitus type 2. REGAN Metabolic acidosis Hypocalcemia Patient's baseline creatinine is unknown His history suggest severe dehydration from profuse diarrhea Associated polycythemia secondary to hemoconcentration. Serum creatinine responded some to IV hydration. Status post temporary dialysis catheter placement and hemodialysis yesterday. Metabolic acidosis improved Patient is planned for hemodialysis today Nephrology is following. IV fluid and bicarb replacement per nephrology. Further hemodialysis per nephrology. PTH elevated, suggesting secondary hyperparathyroidism. Vitamin D levels are pending. Renal diet Monitor renal function. Diabetes mellitus type 2 Insulin sliding scale Enterocolitis Lactic acidosis Continue IV cefepime and IV Flagyl DVT prophylaxis: Heparin SQ Advanced directive: full code .
--- NOTE | 2024-09-17 00:02 | CON ---
Date of Consultation: 09/15/2024 Chief Complaint: Acute kidney injury on chronic kidney disease. History Of Present Illness: The patient is admitted to ICU. He was found to have severe acute kidne y injury, although he has nonoliguric urine output. The patient is treated with IV fluids and IV sod ium bicarbonate for metabolic acidosis. Lactic acid was elevated. The patient is hemodynamically st able and he denies chest pain, shortness of breath, fever, chills, although prior to this admission, he had nausea, vomiting, diarrhea, at least for 3 days before he was admitted to the hospital. Diarr hea was non-bloody and was progressively worse and he came to the emergency room. He denies hemateme sis, melena, and he denies abdominal pain. The patient was assessed in the emergency room and was fo und to have DKA and was admitted for further management. He remains in ICU. CT scan of the abdomen and pelvis was negative for an acute changes. Nephrology is consulted for acute on chronic kidney in [facility]. There is persistent metabolic acidosis. Apparently, the patient was taking metformin prior to this admission and emergent dialysis was ordered for this particular patient for acute kidney injury with metabolic acidosis and previous treatment with metformin. Past Medical History: Hypertension, diabetes mellitus, hyperlipidemia. Past Surgical History: Denies previous surgical history. Family History: Hypertension. Sister of COVID infection. Review of Systems: General: Denies fever, chills. Eyes: Denies vision changes. Ears, Nose, Mouth and Throat: Denies sore throat, earaches. Respiratory: Denies PND, orthopnea. Cardiovascular: Denies syncope, palpitations. Denies chest pain. GI: Had nausea, vomiting. Denies melena, hematemesis. : Denies dysuria, hematuria, incomplete voiding. All other systems reviewed and all are negative. Physical Examination: Vital Signs: Blood pressure is 100/60, heart rate 102, respiratory rate 18, pulse oximetry 94. General: The patient is alert, not in acute distress. Oriented x3. HEENT: Atraumatic, normocephalic. Anicteric sclerae. Neck: Supple. No bruits. Lungs: Clear to auscultation bilaterally. Heart: S1, S2. No pericardial friction rub. Abdomen: Soft, benign, nontender. No rebound, no guarding. Extremities: No edema. No clubbing. No cyanosis. Cranial nerves intact. Skin: Warm and dry. No skin rashes. Laboratory Data: WBC 9.5, hemoglobin 20.2, platelet count 309. INR 1.12, PT 12.7 BUN 69, creatinine 7.95, glucose 348, total bilirubin 0.6. Sodium 126, AST 34. Impression And Plan: 1. Diabetic ketoacidosis. The patient was admitted to ICU, was started on insulin drip. Anion gap w as evaluated. The patient also was found to have elevated lactic acid. The patient apparently was t aking metformin and emergent dialysis will be done for acute kidney injury with metabolic acidosis. 2. Acute kidney injury, nonoliguric, although the patient has metabolic acidosis and previous treatme nt with metformin. Continue dialysis. The patient is to have Marcello catheter and will start dialys is with daily treatment and re-evaluate lab. 3. Lactic acidosis. Further workup per primary team. Continue to monitor blood culture. Rule out b acteremia and sepsis and rule out urinary tract infection. 4. Acute kidney injury. Check renal ultrasound to rule out obstructive uropathy, acute kidney injury , check urinalysis and obtain proteinuria panel to rule out nephritis and evaluate for possible nephr itis. EB/MODL Voice ID: [id number] Report ID: [id number]
[2024-09-17] MEDS: NACHLORIDE 0.45% 1,000 ML IV SCH (01:16)
--- NOTE | 2024-09-17 01:27 | PN ---
Date of Progress Note: 09/16/2024 Chief Complaint: Acute on chronic kidney injury. History: The patient has persistent diarrhea, frequency decreased. The patient was started on dialy sis for acute kidney injury with metabolic acidosis. He remains on bicarbonate drip and renal functi on somewhat improved, although the metabolic acidosis is still present and patient will have second t reatment with dialysis today for metabolic clearance. Review of Systems: Denies chest pain, palpitations. Physical Examination: Lungs: Clear to auscultation bilaterally. Heart: S1, S2. Abdomen: Soft. Extremities: No edema. Impression And Plan: 1. Metabolic acidosis, lactic acidosis, diabetes ketoacidosis, acute kidney injury, volume depletion, hypocalcemia, enterocolitis, diabetes mellitus with renal manifestation, chronic kidney disease stag e 3. Continue dialysis for metabolic clearance. Re-evaluate lab work. 2. Hypocalcemia. Check 25 OH vitamin D level. Continue dialysis with calcium 2.5 dialysate. Monito r magnesium phosphorus. Continue supplementation status post temporary dialysis catheter. Dialysis was done today and yesterday, re-evaluate lab work and discontinue IV bicarbonate drip according to l ab results. 3. Hypocalcemia. PTH is elevated suggesting of secondary hyperparathyroidism. Plan is to re-evaluat e vitamin D level and consider calcitriol. 4. Diabetes mellitus, insulin. Avoid metformin. The patient cannot take metformin. He is not a can didate for metformin in the future. 5. Enterocolitis, lactic acidosis. The patient may need several workup to rule out ischemic colitis. Continue broad-spectrum antibiotics including cefepime and Flag yl. EB/MODL Voice ID: [id number] Report ID: [id number]
[2024-09-17 05:13] LABS: Absolute Eosinophils 0.1 K/uL (0-0.5); Absolute Lymphocytes (CBC) 3.4 K/uL (0.7-4.9); Absolute Monocytes 1.3 K/uL (0.1-1.3); Absolute Neutrophil 2.5 K/uL (1.8-8.0); Basophils % 0.5 % (0-1.3); Eosinophils % 1.3 % (0-4.4); Hematocrit 38.9 % (39.6-49.0); Hemoglobin 13.3 g/dL (13.6-17.9); Lymphocytes % 46.4 % (15.3-44.8); MCH 30.2 pg (27.0-35.0); MCHC 34.2 g/dL (32.0-36.0); MCV 88.2 fL (80-100); MPV 9.2 fL (7.6-11.3); Monocytes % 17.1 % (3.3-12.3); Neutrophils % 34.7 % (41.7-73.7); Nucleated Red Blood Cells % 0.1 % (0-0); Platelets 166 thou/uL (152-406); RBC Red Blood Cell Count 4.41 M/uL (4.33-5.43); Red Cell Distribution Width 14.4 % (12.1-15.2)
[2024-09-17 05:33] LABS: Anion Gap 12.4 mEq/L (5.0-15.0); Magnesium 1.8 mg/dL (1.6-2.4); Phosphorus 2.1 mg/dL (2.5-4.9); Potassium 3.4 mEq/L (3.5-5.1)
[2024-09-17] MEDS: MAGNESIUM SULFATE 1 gm IVPB 1 GM/100 ML BAG IV ONE (06:19)
[2024-09-17] MEDS: POTASSIUM CL SA 10 MEQ TAB PO ONE (08:01)
[2024-09-17] MEDS: CALCIUM CARB 500MG/VIT D 200 IU TAB PO SCH (08:01)
[2024-09-17] MEDS: POTASS/SODIUM PHOSPHATE 1 PKT POWD.PACK PO SCH (08:02)
[2024-09-17] MEDS: POTASSIUM CL SA 10 MEQ TAB PO SCH (08:04)
--- NOTE | 2024-09-17 16:11 | P.PN ---
Subjective Date of Service: 09/17/24 Chief Complaint: Generalized weakness Patient denies any complaint today Patient has had 2 sessions of hemodialysis since admission. Physical Examination - Vital Signs Temperature: 98.2 F Blood Pressure: 114/64 Pulse: 51 Respirations: 18 Pulse Ox (%): 96 Assessment And Plan - Plan Physical examination General: Alert and oriented x3, NAD, Neck: No elevated JVD Heart: Heart sounds 1 and 2 normal, regular rhythm, normal rate, no pedal edema Lungs: Clear to auscultation bilaterally, adequate breath sounds bilaterally, no rhonchi or crackles. Abdomen: Soft, nondistended, nontender, normal bowel sounds. Extremities: No tenderness, no deformity Skin: Normal skin turgor, no rash, no nodules or ulcers. Neuro: No focal motor deficit. Normal speech. Psychiatry: Normal mood, no agitation. Diagnosis Metabolic acidosis REGAN Dehydration Lactic acidosis Hypocalcemia Enterocolitis Diabetes mellitus type 2. REGAN Metabolic acidosis Hypocalcemia Patient's baseline creatinine is unknown His history suggest severe dehydration from profuse diarrhea Associated polycythemia secondary to hemoconcentration. Serum creatinine responded some to IV hydration. Status post temporary dialysis catheter placement and hemodialysis yesterday. Metabolic acidosis improved Patient is planned for hemodialysis today Nephrology is following. IV fluid and bicarb replacement per nephrology. Further hemodialysis per nephrology. PTH elevated, suggesting secondary hyperparathyroidism. Vitamin D levels are pending. Renal diet Monitor renal function. 09/17 Status post hemodialysis x 2 IV fluid per nephrology. Serum creatinine trending down significantly. Further hemodialysis per nephrology Continue to monitor renal function. Monitor and replace electrolytes as needed. Diabetes mellitus type 2 Insulin sliding scale Enterocolitis Lactic acidosis Continue IV cefepime and IV Flagyl 09/17 Patient reports significant improvement in his diarrhea. Transition to oral Cipro and Flagyl. DVT prophylaxis: Heparin SQ Advanced directive: full code .
[2024-09-17] MEDS: POTASS/SODIUM PHOSPHATE 1 PKT POWD.PACK PO ONE (20:52)
[2024-09-17] MEDS: SODIUM BICARB 325 MG TAB PO SCH (20:53)
--- NOTE | 2024-09-17 21:00 | PN ---
Date of Progress Note: 09/17/2024 Chief Complaint: Acute on chronic kidney injury. Subjective: The patient presented to the hospital because of persistent diarrhea. He has frequent b owel movements and today he complains of at least 3 bowel movements per day. He was started on bicarbonate drip and renal function is somewhat improved, although metabolic acidos is is persistent, patient was started on dialysis. He received dialysis yesterday. Review of Systems: Denies chest pain, palpitation. Physical Examination: Lungs: Clear to auscultation bilaterally. Heart: S1, S2. Abdomen: Soft. Extremities: No edema. Impression And Plan: 1. Metabolic acidosis, lactic acidosis, diabetic ketoacidosis, acute kidney injury, volume depletion, hypocalcemia, enterocolitis, diabetes mellitus with renal manifestation, chronic kidney disease stag e 3. Continue to monitor lab work. Patient received daily dialysis for metabolic clearance and to c ontrol acidosis. 2. Hypocalcemia. Check 25 OH vitamin D level. Continue dialysis with calcium 2.5. Monitor magnesiu m and phosphorus. 3. Discontinue IV bicarbonate drip and continue p.o. sodium bicarbonate tablet. Monitor lab work. P TH is elevated, suggesting of secondary hyperparathyroidism. Evaluate 25 OH vitamin D level. 4. Diabetes mellitus. Avoid metformin. The patient is not a candidate for metformin. 5. Enterocolitis, lactic acidosis. The patient may need further workup to rule out ischemic colitis. Continue Flagyl and cefepime. EB/MODL Voice ID: [id number] Report ID: [id number]
[2024-09-18 06:29] LABS: Anion Gap 11.1 mEq/L (5.0-15.0); Potassium 4.1 mEq/L (3.5-5.1)
[2024-09-18 09:51] VITALS: O2SAT 98
[2024-09-18] MEDS: SODIUM BICARB 325 MG TAB PO SCH (12:09)
[2024-09-18] MEDS: D5W 1,000 ML with NA BICARB 8.4% 150 MEQ IV SCH (12:46)
--- NOTE | 2024-09-18 15:43 | P.PN ---
Subjective Date of Service: 09/18/24 Chief Complaint: Generalized weakness Patient denies any complaint today Patient denies any complaint. Patient reports for diarrhea BM episodes since this morning. Physical Examination - Vital Signs Temperature: 98.1 F Blood Pressure: 128/74 Pulse: 52 Respirations: 16 Pulse Ox (%): 100 Assessment And Plan - Plan Physical examination General: Alert and oriented x3, NAD, Neck: No elevated JVD Heart: Heart sounds 1 and 2 normal, regular rhythm, normal rate, no pedal edema Lungs: Clear to auscultation bilaterally, adequate breath sounds bilaterally, no rhonchi or crackles. Abdomen: Soft, nondistended, nontender, normal bowel sounds. Extremities: No tenderness, no deformity Skin: Normal skin turgor, no rash, no nodules or ulcers. Neuro: No focal motor deficit. Normal speech. Psychiatry: Normal mood, no agitation. Diagnosis Metabolic acidosis REGAN Dehydration Lactic acidosis Hypocalcemia Enterocolitis Diabetes mellitus type 2. REGAN Metabolic acidosis Hypocalcemia Patient's baseline creatinine is unknown His history suggest severe dehydration from profuse diarrhea Associated polycythemia secondary to hemoconcentration. Serum creatinine responded some to IV hydration. Status post temporary dialysis catheter placement and hemodialysis yesterday. Metabolic acidosis improved Patient is planned for hemodialysis today Nephrology is following. IV fluid and bicarb replacement per nephrology. Further hemodialysis per nephrology. PTH elevated, suggesting secondary hyperparathyroidism. Vitamin D levels are pending. Renal diet Monitor renal function. 09/17 Status post hemodialysis x 2 IV fluid per nephrology. Serum creatinine trending down significantly. Further hemodialysis per nephrology Continue to monitor renal function. Monitor and replace electrolytes as needed. 09/18 Serum creatinine significantly improved to 1.9, from 7.95 on admission. Metabolic acidosis persist. Metabolic acidosis likely secondary to diarrhea as patient continues to have frequent watery bowel movements. Nephrology started patient on bicarb drip. Diabetes mellitus type 2 Insulin sliding scale Enterocolitis Lactic acidosis Treated with IV cefepime and IV Flagyl 09/17 Patient reports significant improvement in his diarrhea. Transition to oral Cipro and Flagyl. 09/18 Patient continues to have diarrhea. Diarrhea contributing to the metabolic acidosis Check stool for C. difficile and WBC. Continue oral Cipro and Flagyl Considering antidiarrheal agent if stool for C. difficile and WBC negative. DVT prophylaxis: Heparin SQ Advanced directive: full code .
--- NOTE | 2024-09-18 16:54 | EKG ---
Test Date: 2024-09-14 Test Time: 15:06:37 Decorating Machine Tender: JOHN MEASUREMENT RESULTS: Intervals: Rate: 100 GA: 152 QRSD: 84 QT: 364 QTc: 469 [place]: P: 77 GA: 152 QRS: 95 T: 43 INTERPRETIVE STATEMENTS: Normal sinus rhythm Right atrial enlargement Rightward axis Borderline ECG Compared to ECG 01/23/2018 00:25:44 Atrial abnormality now present Right-axis deviation now present Electronically Signed On 09-18-24 16:49:26 CDT by Ric Helms
[2024-09-18] MEDS: CIPROFLOXACIN HCL 500 MG TAB PO SCH (20:56)
[2024-09-18] MEDS: metroNIDAZOLE 500 MG TABLET PO SCH (20:56)
[2024-09-19 09:17] LABS: Hematocrit 41.9 % (39.6-49.0); Hemoglobin 14.3 g/dL (13.6-17.9); MCHC 34.2 g/dL (32.0-36.0); MCV 87.7 fL (80-100); MPV 8.9 fL (7.6-11.3); Platelets 179 thou/uL (152-406); RBC Red Blood Cell Count 4.78 M/uL (4.33-5.43); Red Cell Distribution Width 14.6 % (12.1-15.2)
[2024-09-19 09:29] LABS: Anion Gap 10.7 mEq/L (5.0-15.0); Magnesium 1.6 mg/dL (1.6-2.4); Potassium 3.7 mEq/L (3.5-5.1)
[2024-09-19 09:39] LABS: Phosphorus 1.2 mg/dL (2.5-4.9)
[2024-09-19] MEDS: MAGNESIUM SULFATE 1 gm IVPB 1 GM/100 ML BAG IV ONE (10:16)
[2024-09-19] MEDS: POTASS/SODIUM PHOSPHATE 1 PKT POWD.PACK PO SCH (10:16)
[2024-09-19] MEDS: POTASSIUM CL SA 10 MEQ TAB PO ONE (10:16)
--- NOTE | 2024-09-19 12:08 | P.PN ---
Date of Service: 09/19/24 Subjective: feeling better asking about going home soon reports some loose stool, attributes to certain foods Physical Exam: GEN: Alert, oriented, NAD CV: Regular rate and rhythm, no edema Pulm: Nonlabored respirations on room air, clear bilaterally ABD: soft, nontender, nondistended Neuro: Normal speech, normal affect Problem List: Metabolic acidosis REGAN on CKD3 Hypocalcemia Enterocolitis Lactic acidosis, resolved NIDDM2 Metabolic acidosis REGAN on CKD3 Hypocalcemia His history suggest severe dehydration from profuse diarrhea. Associated polycythemia secondary to hemoconcentration. PTH elevated, suggesting secondary hyperparathyroidism. s/p temp HD cath placement with Dr. Barragan (09/15) Patient dialyzed x2 so far. Further HD per Nephrology Creatinine trending down but metabolic acidosis persists so far renal fxn seems to be improving/recovering Vitamin D levels are pending. Acidosis likely secondary to frequent diarrhea Patient started on Bicarb drip yesterday per nephro; continue for now Enterocolitis Lactic acidosis, resolved Continues with diarrhea but improving Diarrhea contributing to the metabolic acidosis Treated with IV cefepime (09/16-09/18) and IV flagyl (09/15-09/18) IV abx deescalated to oral cipro/flagyl (09/18-) Considering antidiarrheal agent if stool for C. difficile and WBC negative. C. diff negative NIDDM2 Accu-cheks, SSI avoid metformin VTE: heparin sq Code: Full Dispo: Home, ~1-2 days Pending further nephro recs / diarrhea Time Spent Managing Pts Care (In Minutes): 55
[2024-09-19] MEDS: POTASSIUM PHOS 30 MM in NA CHLORIDE 0.9% 500 ML IV ONE (16:50)
--- NOTE | 2024-09-19 22:12 | PN ---
Date of Progress Note: 09/18/2024 Chief Complaint: Acute on chronic kidney injury. Subjective: Patient presented to the hospital because of persistent diarrhea. He had frequent bowel movements and today he complains of at least 2-3 bowel movements per day. He was started on bicarbo herb drip and renal function somewhat improved, although metabolic acidosis was persistent and lactic acidosis was present. Patient received dialysis and today lactic acid is pending. Review of Systems: Denies chest pain, palpitation. Physical Examination: Lungs: Clear to auscultation bilaterally. Heart: S1, S2. Abdomen: Soft. Extremities: No edema. Impression And Plan: 1. Metabolic acidosis, lactic acidosis, diabetic ketoacidosis, acute kidney injury, volume depletion, hypocalcemia, enterocolitis, diabetes mellitus with renal manifestation, chronic kidney disease stag e 3. Continue to monitor lab work. The patient received dialysis for metabolic clearance and to con trol acidosis. The patient will be started on IV bicarbonate drip. Lactic acid level is pending. 2. Hypocalcemia. Check 25 OH vitamin D level. Continue dialysis with calcium 2.5 as needed. Monito r magnesium and phosphorus level. 3. Diabetes mellitus. Avoid metformin. Patient is not a candidate for metformin in the future. 4. Enterocolitis, lactic acidosis. The patient needs further workup to rule out ischemic colitis. C ontinue Flagyl and cefepime. EB/MODL Voice ID: [id number] Report ID: [id number]
--- NOTE | 2024-09-20 02:01 | PN ---
Date of Progress Note: 09/19/2024 Subjective: No overnight event. Has good urine output. Creatinine down to 1.7. Objective: Vital Signs: Temperature 98.2, pulse rate 53, blood pressure 135/75. General: Awake, alert, and oriented x3, not in distress. Neck: Supple. No elevated JVD. Heart: Regular rate and rhythm. Normal S1, S2. Chest: Clear to auscultation bilaterally. No rales or wheezes. Abdomen: Soft and nontender. Right femoral dialysis catheter. Extremities: No edema. Laboratory Data: White count 7.2, hemoglobin 14.3. Sodium 141, potassium 3.7, creatinine 1.7, phosp horus 1.2. Assessment And Plan: This is a 64-year-old man who presented with past medical history of diabetes w ith nephropathy, initially presented to the ER complaining of vomiting and diarrhea. Creatinine was 7.9 with acidosis. The patient required dialysis. Last dialysis was on September 16. His creatinine righ t now improved to 1.7. 1. Acute on chronic diabetic chronic kidney disease likely due to hydration and acute tubular necrosi s. Creatinine improved to 1.7, last dialysis on September 16. Monitor renal function for 1 more day. If creatinine is stable and improving, we will discontinue dialysis catheter tomorrow. 2. Diabetic chronic kidney disease. Creatinine improving as above. Avoid NSAID and contrast. Renal dose medication. 3. Diabetes mellitus. Continue insulin. 4. Metabolic acidosis is due to acute kidney injury and diarrhea. Currently, bicarb of 23. We will discontinue bicarbonate drip. 5. Diarrhea. Continue antibiotic. Diet as tolerated. Thank you for allowing me to participate in the patient's care. Total time spent 55 minutes including documentation, reviewing labs, and placing orders. AA/MODL Voice ID: [id number] Report ID: [id number]
[2024-09-20 06:43] LABS: Albumin 2.8 g/dL (3.4-5.0); Albumin/Globulin Ratio 0.7 (1.1-1.8); Anion Gap 11.4 mEq/L (5.0-15.0); Bilirubin Total 0.5 mg/dL (0.2-1.0); Globulin 3.8 g/dL (2.3-3.5); Magnesium 1.7 mg/dL (1.6-2.4); Phosphorus 2.2 mg/dL (2.5-4.9); Potassium 4.4 mEq/L (3.5-5.1); Protein, Total 6.6 g/dL (6.4-8.2)
[2024-09-20] MEDS: MAGNESIUM SULFATE 1 gm IVPB 1 GM/100 ML BAG IV ONE ×2 (08:11→13:03)
[2024-09-20] MEDS: POTASS/SODIUM PHOSPHATE 1 PKT POWD.PACK PO SCH (08:11)
--- NOTE | 2024-09-20 11:32 | PN ---
Date of Progress Note: 09/20/2024 Subjective: The patient was admitted to the hospital with severe DKA with acute kidney injury second jr to dehydration. The patient had severe acidosis. The patient was started on dialysis. The gilbert ent's last dialysis was on the . Physical Examination: Vital Signs: Blood pressure 147/72, pulse of 46, afebrile. Chest: Clear to auscultation. Heart: S1, S2 regular. Abdomen: Soft, nontender. Extremities: No edema. Right femoral dialysis temporary catheter. Laboratory Data: WBC 7.2, hemoglobin 14.3. Sodium 141, potassium 4.4, bicarb 21, BUN 22, creatinine 1.6, GFR 46, calcium 8.7, phosphorus 2.2, magnesium 1.7. PTH 158. Urinalysis negative for infectio n. Current Medications: The patient is on include ciprofloxacin, metronidazole, calcium carbonate. Assessment And Plan: 1. Acute kidney injury secondary to poor perfusion ATN, toxic ATN secondary to sepsis, secondary to p ancreatitis and DKA, recovering, normal volume, nonoliguric. No hyperkalemia. I do not see the need for any further dialysis. We will remove the dialysis catheter. The patient cleared from the Renal standpoint for discharge planning. 2. Hyperkalemia secondary to renal failure, resolved. 3. Hypokalemia secondary to renal failure and DKA, resolved. 4. Sepsis, pancreatitis as by Primary. 5. Chronic kidney disease secondary to diabetes nephropathy, baseline creatinine unknown. Back in 18, 1.7, currently 1.6, back to closer. Discontinue Rodríguez. Discontinue hemodialysis catheter. We w ill follow up. 6. Secondary hyperparathyroidism. No need for vitamin D for the time being. The patient cleared from the Renal standpoint for discharge planning. JOSE MANUEL/YOHANA Voice ID: [id number] Report ID: [id number]
[2024-09-20 12:30] VITALS: BP 137/85; TEMP 98.3
[2024-09-21 00:22] LABS: 1,25 Dihydroxy Vitamin D3 15 pg/mL; Vitamin D 1,25-Dihydroxy Total 15 pg/mL (18-72); Vitamin D,1,25-OH2, D2 <8 pg/mL
--- NOTE | 2024-09-21 06:52 | P.DS ---
Admission Date: 09/14/24 Discharge Date: 09/20/24 Disposition: ROUTINE DISCHARGE Discharge Condition: GOOD Reason for Admission: Generalized weakness Consultations: Nephrology - Dr. Hernandez, Dr. Francisco, [facility] General Surgery - Dr. Barragan Brief History of Present Illness: 64 yo M, PMH: hypertension, diabetes Patient presents to ER with generalized weakness associated with nausea and vomiting and diarrhea which has been going on for the last 3 days and has been progressively getting worse and was brought to the ER. Patient denies any chest pain or shortness of breath. Denies any fever or chills. No sick contacts. No recent travel. Symptoms started insidiously. Patient is a poor historian hence most of the history is obtained from the chart review and also talking to the ER physician. Patient denies any hematemesis or melena. Patient was assessed in the ER and was found to be having acute kidney injury and DKA and was admitted for further management. He also had a CT of the abdomen pelvis which was negative for any acute changes Hospital Course: Problem List: Enterocolitis REGAN on CKD3, improved Metabolic acidosis, resolved Hypocalcemia, resolved Lactic acidosis, resolved NIDDM2 Physician discharge instructions: Patient presented with generalized weakness associated with profuse diarrhea and nausea/vomiting secondary to Enterocolitis. Patient was started on IV ciprofloxacin/flagyl and had some improvement of his symptoms. Diarrhea frequency slowly improved over the course of his hospitalization. IV ciprofloxacin/flagyl were deescalated to oral equivalent and patient continued to improve. Blood cultures were without growth. Urine culture grew mixed lucius. Hospitalization was prolonged secondary to persistent diarrhea / metabolic acidosis. C. Diff was negative. Labwork on admission with significantly elevated creatinine (7.95), Hyponatremia (126), Hypocalcemia (7.0). Suspect secondary to severe dehydration from profuse diarrhea, poor intake, hyperglycemia. Nephrology was consulted and recommended initiating emergent temporary dialysis. Patient had temp HD catheter placed by Dr. Barragan on 09/15 and was started on dialysis. Patient felt improvement with back to back days of dialysis. He had improvement/resolution of his acute kidney injury and acidosis. He does not require further dialysis, and HD catheter was removed on 09/20. Creatinine on discharge: 1.65 Repeat blood work in 1 week to monitor renal function, electrolytes. Medications: Cipro & flagyl (antibiotics) for 7 more days, for 12 day course to cover for infectious enterocolitis resume home meds as previously prescribed Follow up: PCP 3-5 days Nephrology in a few weeks Please call to schedule / confirm appointments Physical Exam: GEN: Alert, oriented, NAD CV: Regular rate and rhythm, no edema Pulm: Nonlabored respirations on room air, clear bilaterally ABD: soft, nontender, nondistended Neuro: Normal speech, normal affect Vital Signs/Physical Exam: Temp Pulse Resp BP Pulse Ox 98.3 F 50 18 137/85 99 09/20/24 12:00 09/20/24 12:00 09/20/24 12:00 09/20/24 12:00 09/20/24 12:00 Laboratory Data at Discharge: WBC 7.20 thou/uL (4.3-10.9) 09/19/24 09:00 Hgb 14.3 g/dL (13.6-17.9) 09/19/24 09:00 Hct 41.9 % (39.6-49.0) 09/19/24 09:00 Plt Count 179 thou/uL (152-406) 09/19/24 09:00 PT 12.7 SECONDS (10-13.0) 09/14/24 15:12 INR 1.12 09/14/24 15:12 APTT 38.1 SECONDS (27.2-37.4) H 09/14/24 15:12 Sodium 141 mEq/L (136-145) 09/20/24 05:59 Potassium 4.4 mEq/L (3.5-5.1) D 09/20/24 05:59 BUN 22 mg/dL (7-18) H 09/20/24 05:59 Creatinine 1.65 mg/dL (0.70-1.30) H 09/20/24 05:59 Glucose 151 mg/dL (74-106) H 09/20/24 05:59 Phosphorus 2.2 mg/dL (2.5-4.9) L 09/20/24 05:59 Magnesium 1.7 mg/dL (1.6-2.4) 09/20/24 05:59 Total Bilirubin 0.5 mg/dL (0.2-1.0) 09/20/24 05:59 AST 71 U/L (15-37) H 09/20/24 05:59 ALT 95 U/L (16-61) H 09/20/24 05:59 Alkaline Phosphatase 46 U/L (45-117) 09/20/24 05:59 Lipase 454 U/L (13-75) H 09/14/24 15:12 Home Medications: Empagliflozin [Jardiance] 1 tab PO DAILY 09/15/24 Metformin HCl 1,000 mg PO DAILY 09/15/24 Pravastatin Sodium 10 mg PO BEDTIME 09/15/24 glipiZIDE [Glipizide] 10 mg PO BID 09/15/24 Ciprofloxacin HCl [Cipro] 500 mg PO BID 7 Days #14 tab 09/20/24 metroNIDAZOLE [Flagyl*] 500 mg PO TID 7 Days #21 tab 09/20/24 New Medications: Ciprofloxacin HCl [Cipro] 500 mg PO BID 7 Days #14 tab metroNIDAZOLE [Flagyl*] 500 mg PO TID 7 Days #21 tab Physician Discharge Instructions: Physician discharge instructions: Patient presented with generalized weakness associated with profuse diarrhea and nausea/vomiting secondary to Enterocolitis. Patient was started on IV ciprofloxacin/flagyl and had some improvement of his symptoms. Diarrhea frequency slowly improved over the course of his hospitalization. IV ciprofloxacin/flagyl were deescalated to oral equivalent and patient continued to improve. Blood cultures were without growth. Urine culture grew mixed lucius. Hospitalization was prolonged secondary to persistent diarrhea / metabolic acidosis. C. Diff was negative. Labwork on admission with significantly elevated creatinine (7.95), Hyponatremia (126), Hypocalcemia (7.0). Suspect secondary to severe dehydration from profuse diarrhea, poor intake, hyperglycemia. Nephrology was consulted and recommended initiating emergent temporary dialysis. Patient had temp HD catheter placed by Dr. Barragan on 09/15 and was started on dialysis. Patient felt improvement with back to back days of dialysis. He had improvement/resolution of his acute kidney injury and acidosis. He does not require further dialysis, and HD catheter was removed on 09/20. Creatinine on discharge: 1.65 Repeat blood work in 1 week to monitor renal function, electrolytes. Medications: Cipro & flagyl (antibiotics) for 7 more days, for 12 day course to cover for infectious enterocolitis resume home meds as previously prescribed Follow up: PCP 3-5 days Nephrology in a few weeks Please call to schedule / confirm appointments Followup: Lenny Hernandez MD [ACTIVE - CAN ADMIT] - 1-2 Weeks NONE,NONE [Primary Care Provider] - 1 Week Time spent managing pt's care (in minutes): 45
== END 2024-09-20 15:08 | disposition home or self-care (01) | DRG 637 ==
LOC: ER 14:01 → ERHOLD 18:34 → 3RD-ICU 21:16 → 4TH 09-15 17:54
PROVIDERS: ADMIT Family Medicine; ATTEND Hospitalist
PROC: 4A033R1 Measurement of Arterial Saturation, Peripheral, Percutaneous Approach (ICD-10-PCS; principal; 2024-09-14)
PROC: 02HV33Z Insertion of Infusion Device into Superior Vena Cava, Percutaneous Approach (ICD-10-PCS; 2024-09-15)
PROC: 5A1D70Z Performance of Urinary Filtration, Intermittent, Less than 6 Hours Per Day (ICD-10-PCS; 2024-09-15)
DX: E11.10 Type 2 diabetes mellitus with ketoacidosis without coma (principal); N17.0 Acute kidney failure with tubular necrosis; E87.1 Hypo-osmolality and hyponatremia; E86.0 Dehydration; E83.51 Hypocalcemia; D75.1 Secondary polycythemia; K52.9 Noninfective gastroenteritis and colitis, unspecified; E86.9 Volume depletion, unspecified; I12.9 Hypertensive chronic kidney disease with stage 1 through stage 4 chronic kidney disease, or unspecified chronic kidney disease; N18.30 Chronic kidney disease, stage 3 unspecified; E11.22 Type 2 diabetes mellitus with diabetic chronic kidney disease; F17.210 Nicotine dependence, cigarettes, uncomplicated; E87.5 Hyperkalemia; Z79.84 Long term (current) use of oral hypoglycemic drugs; Z79.899 Other long term (current) drug therapy
CPT/HCPCS: 36415; 36600; 74176; 80048; 80053; 80069; 80307; 81001; 82306; 82310; 82652; 82805; 82947; 83036; 83605; 83690; 83735; 83970; 84100; 85025; 85027; 85610; 85730; 86705; 86706; 87040; 87086; 87088; 87324; 87340; 90935; 93005; 96365; 96366; 96375; 99285; J0612; J0692; J0696; J1644; J1815; J3475; J3480; J7030; J7040; J7050; J7799